=== PATIENT | female | born 1945 | race Caucasian/White ===

== ENCOUNTER → 2016-10-12 | Outpatient (CLI) | payer MEDICARE, MEDICAID ==
[~2016-10-12] MED LIST: ALBU0.63 NEB; ALPR1TAB3 PO; ALPR2TAB3 PO; ASPI1TAB69 PO; ASPI81CH CHEW; BUPR100T4 PO; LEVO.05 PO; NEBUKIT5; OXYGENTANK NAS.CANULA; ROSU40 PO; TIOT1AER INH; VENTAER INH; XANA1TAB2 PO
[2016-10-12 10:23] LABS: ALKALINE PHOSPHATASE 80 U/L (45-117); ALT (GPT) 24 U/L (10-53); ANION GAP 6 MEQ/L (5-15); AST (GOT) 16 U/L (15-37); BICARBONATE 33.3 MEQ/L (21.0-32.0); BLOOD UREA NITROGEN 10 MG/DL (7-18); CHLORIDE 103 MEQ/L (98-107); GLOMERULAR FILTRATION RATE 88 ML/MIN (>89); GLUCOSE,FASTING 106 MG/DL (74-99); HDL CHOLESTEROL 52.1 MG/DL (40.0-60.0); LDL CHOLESTEROL 24 MG/DL (0-99); POTASSIUM 4.4 MEQ/L (3.5-5.1); SODIUM (NA) 142 MEQ/L (136-145); TOTAL BILIRUBIN ADULT 0.4 MG/DL (0.2-1.0)
== END ==
LOC: CLAB 09:05
PROVIDERS: ATTEND Family Medicine
DX: J44.9 Chronic obstructive pulmonary disease, unspecified (principal); F32.9 Major depressive disorder, single episode, unspecified; E78.5 Hyperlipidemia, unspecified; I10 Essential (primary) hypertension; E03.8 Other specified hypothyroidism
CPT/HCPCS: 36415; 80053; 80061; 84443

== ENCOUNTER 2017-01-17 09:12 | Emergency (ER) | payer MEDICARE, MEDICAID ==
[~2017-01-17] VITALS: Ht 165.1 cm; Wt 75.0 kg
[~2017-01-17 09:12] MED LIST changes: -ALPR1TAB3 PO; -ALPR2TAB3 PO; -ASPI81CH CHEW
[2017-01-17 09:17] VITALS: BP 149/77; PULSE 84; RESP 16; TEMP 98.2; O2SAT 99
[2017-01-17 09:38] VITALS: BP 178/81; PULSE 65; O2SAT 96
--- NOTE | 2017-01-17 09:41 | PD ---
HPI Chief Complaint: Anxiety Time Seen by Provider: 09:28 Travel History International Travel<30 days: No Contact w/Intl Traveler<30days: No Traveled to known affect area: No History of Present Illness HPI This is a 71-year-old female who presents to the emergency department with anxiety it's been going on since yesterday, constant, moderate severity, ever since she ran out of her Xanax. She's been getting Xanax prescribed to her routinely by Dr. Payne on a month to month basis but Dr. Payne decided to work back in the hospital and she can't see him anymore. She is going to follow -up with her primary care physician regarding her anxiety. [facility] Past Medical History Arthritis: Yes Asthma: No Autoimmune Disease: No Blood Disorders: No Anxiety: Yes (DOES NOT SEEK PSYCHIATRIST PER CHOICE) Depression: Yes (DOES NOT SEEK PSYCHIATRIST PER CHOICE) Heart Rhythm Problems: Yes Cancer: No Cardiac Catheterization: No Cardiovascular Problems: Yes High Cholesterol: No Chemotherapy: No Chest Pain: Yes Congestive Heart Failure: No COPD: Yes (SMOKED X 50 YRS) Cerebrovascular Accident: Yes Diabetes: Yes (diet controlled) Patient Takes Glucophage: No Diminished Hearing: No Endocrine: Yes (HYPOTHYROID) Gastrointestinal Disorders: No GERD: No Glaucoma: Yes Genitourinary: No Headaches: No Hepatitis: No Hiatal Hernia: No Hypertension: No Immune Disorder: No Kidney Stones: No Musculoskeletal: Yes (ARTHRITIS) Neurologic: Yes (CVS X 10 YRS) Psychiatric: Yes Reproductive: No Respiratory: Yes (copd) Immunizations Current: No Migraines: No Myocardial Infarction: No Radiation Therapy: No Renal Failure: No Seizures: No Sickle Cell Disease: No Sleep Apnea: Yes (CPAP AT HOME) Thyroid Disease: Yes (HYPOTHYROID ) Ulcer: No Tetanus Vaccination: Unknown Influenza Vaccination: Yes ?: Not Menopausal: Yes Tubal Ligation: Yes Past Surgical History Abdominal Surgery: No AICD: No Appendectomy: Yes (as a child ) Arteriovenous Shunt: No Cardiac Surgery: No Cholecystectomy: Yes (UNSURE) Coronary Artery Bypass Graft: No Ear Surgery: No Endocrine Surgery: No Eye Surgery: No Genitourinary Surgery: No Gynecologic Surgery: Yes (2 ABORTIONS) Insulin Pump: No Joint Replacement: No Neurologic Surgery: No Oral Surgery: No Pacemaker: No Thoracic Surgery: No Tonsillectomy: Yes Other Surgery: Yes (COLONSCOPY) Social History Alcohol Use: No Tobacco Use: Yes (less than a pack a day ) Substance Use: No Allergies-Medications (Allergen,Severity, Reaction): Coded Allergies: No Known Allergies (Verified , 01/17/17) Reported Meds & Prescriptions Reported Meds & Active Scripts Active Stiolto Respimat Inh (Tiotropium-Olodaterol Inh) 2.5-2.5 Mcg/Act Aero 1 Puff INH DAILY Albuterol Neb (Albuterol Sulfate) 0.63 Mg/3 Ml Neb 0.63 Mg NEB Q6HR NEB PRN Ventolin Hfa 18 GM Inh (Albuterol Sulfate) 90 Mcg/Act Aer 1 Puff INH Q4H PRN Xanax (Alprazolam) 1 Mg Tab 0.5 Mg PO DIRECTED PRN Bupropion HCl 100 Mg Tab 100 Mg PO BID Crestor (Rosuvastatin Calcium) 40 Mg Tab 40 Mg PO DAILY Reported Oxygen tank (Oxygen) 1 Ea Tank 2 Liter STEPH.CANULA CONTINUOUS Oxygen Concentrator Portable Gaseous 2 L/min via Nasal Cannula Continuous For 99 months Aspirin 81 Mg Tabdr 81 Mg PO 2-3 TIMES A DAY Synthroid (Levothyroxine Sodium) 50 Mcg Tab 50 Mcg PO EVERY OTHER DAY Nebulizer Kit/Tubing/Mout (N/A) 1 Kit Kit 1 Kit .ROUTE DIRECTED Review of Systems Except as stated in HPI: all other systems reviewed are Neg Physical Exam Narrative GENERAL: Anxious with some tremor SKIN: Focused skin assessment warm and dry. HEAD: Atraumatic. Normocephalic. EYES: Pupils equal and round. No injection or drainage. ENT: Moist mucous membranes NECK: Trachea midline. CARDIOVASCULAR: Regular rate and rhythm. No murmur appreciated. RESPIRATORY: Clear to auscultation. Breath sounds equal bilaterally. GASTROINTESTINAL: Abdomen soft, non-tender, nondistended. MUSCULOSKELETAL: No obvious deformities. NEUROLOGICAL: Awake and alert. No obvious cranial nerve deficits. Moving all extremities. PSYCHIATRIC: Appropriate mood and affect; insight and judgment normal. Data Data Last Documented VS Vital Signs Date Time Temp Pulse Resp B/P Pulse Ox O2 Delivery O2 Flow Rate FiO2 01/17/17 09:38 65 178/81 96 Nasal Cannula 2 01/17/17 09:17 98.2 16 Orders Electrocardiogram (01/17/17 ) Lorazepam Inj (Ativan Inj) (01/17/17 09:45) MDM Medical Decision Making Medical Screen Exam Complete: Yes Emergency Medical Condition: Yes Interpretation(s) EKG with anterior T-wave inversions seen on prior EKGs from [facility] Differential Diagnosis Anxiety, benzodiazepine withdrawal, panic attack, myocardial infarction Narrative Course This is a 71-year-old female who presents to the emergency department anxious and having run out of her Xanax yesterday. Patient appears to be an early benzodiazepine withdrawal. She has been reliable with her benzodiazepine prescriptions in the past. I did inform her that we can't routinely refill her controlled substances in the emergency department but in this situation I think it's reasonable until she can get into her primary care physician. She was given 1 mg of IM Ativan here in the emergency department and will be discharged on a short course of Xanax. An EKG was obtained on arrival which does demonstrate T-wave inversions in the anterior leads which have been seen at [facility] in the past. Diagnosis Primary Impression: Withdrawal from benzodiazepine Qualified Code: F13.230 - Withdrawal from benzodiazepine, uncomplicated Patient Instructions: General Instructions Additional Instructions: Follow up with Shayla Flores in regards to psychiatric or substance related issues at: [address] [place], [place] [id number] Med/Other Pt SpecificInfo: Prescription(s) given Scripts Alprazolam 2 Mg Tab2 Mg PO Q8H PRN (ANXIETY) #30 TAB Prov:Laura Farley MD 01/17/17 Disposition: 01 DISCHARGE HOME Condition: Stable Laura Farely MD January 17, 2017 09:41
[2017-01-17] MEDS ORDERED: LORazepam 2 MG/ML VIAL IV PUSH ONE (09:45)
[2017-01-17] MEDS ORDERED: ALPR2TAB3 PO (09:49)
[2017-01-17] MEDS ORDERED: ASPI81CH CHEW (09:54)
--- NOTE | 2017-01-17 14:59 | EKG ---
Date Performed: 01/17/2017 Time Performed: 09:33:44 PTAGE: 71 years EKG: Sinus rhythm Nonspecific T wave changes ABNORMAL ECG COMPARED TO PRIOR ELECTROCARDIOGRAM, T wave changes are more prominent. PREVIOUS TRACING : 06/17/2015 11.19 DOCTOR: Bandar Barrientos Interpretating Date/Time 01/17/2017 14:59:10
[2017-02-08] MEDS ORDERED: ALPR1TAB3 PO (12:28)
== END 2017-01-17 10:26 | disposition home or self-care (01) ==
LOC: NEPC 09:12
DX: F13.230 Sedative, hypnotic or anxiolytic dependence with withdrawal, uncomplicated (principal); E03.9 Hypothyroidism, unspecified; J44.9 Chronic obstructive pulmonary disease, unspecified; F41.9 Anxiety disorder, unspecified; F17.200 Nicotine dependence, unspecified, uncomplicated; Z79.899 Other long term (current) drug therapy
CPT/HCPCS: 93005; 96374; 99284; J2060

== ENCOUNTER → 2017-03-11 | Outpatient (CLI) | payer MEDICARE, MEDICAID ==
[~2017-03-11] MED LIST changes: +ALPR1TAB3 PO; -ASPI1TAB69 PO; +ASPI81CH CHEW; -BUPR100T4 PO; -VENTAER INH; -XANA1TAB2 PO
--- NOTE | 2017-03-16 08:31 | RSPPFT ---
DATE OF PROCEDURE: 03/11/17 COMMENTS: VOLUMES DYNAMIC: FVC mildly reduced; FEV1 moderately reduced. STATIC: FRC mildly increased; RV moderately increased; TLC normal. FLOWS: FEV1% moderately reduced; FEF 25-75 severely reduced. DIFFUSION: Severely reduced. FLOW VOLUME LOOP: Pattern of variable intrathoracic airways obstruction. IMPRESSION: Severe obstructive ventilatory defect with reduction in diffusion and moderate hyperinflation. Airways resistance is increased. There is minimal improvement post-bronchodilator.
== END ==
LOC: HRSP 12:06
PROVIDERS: ATTEND Internal Medicine
DX: J44.9 Chronic obstructive pulmonary disease, unspecified (principal)
CPT/HCPCS: 94060; 94620; 94726; 94729

== ENCOUNTER 2017-08-18 09:59 | Emergency (ER) | payer MEDICARE, MEDICAID ==
[~2017-08-18] VITALS: Ht 165.1 cm; Wt 77.0 kg
[~2017-08-18 09:59] MED LIST changes: +ALPR0.5T3 PO; -ALPR1TAB3 PO; +ASPI-516 CHEW; -ASPI81CH CHEW; +ESCI10TA PO; +NEBU1EAC; +NEBUMIS9; +SALM50I INH; +TIOT12.9 INH; -TIOT1AER INH
[2017-08-18 10:01] VITALS: BP 171/75; PULSE 76; RESP 22; TEMP 99.4; O2SAT 96
--- NOTE | 2017-08-18 10:40 | PD ---
HPI Chief Complaint: Depression Time Seen by Provider: 10:26 Travel History International Travel<30 days: No Contact w/Intl Traveler<30days: No Traveled to known affect area: No History of Present Illness HPI This patient complains of depression and anxiety. He's been on Xanax for years and has run out. She is feeling shaky and jittery. She denies suicidal ideation. She does describe activities that suggest pamella. She can't stop cleaning. She can't sit still. She denies bipolar. She would like psychiatric evaluation. Severity of symptoms is moderate. Duration of this flare is 2-3 days. Symptoms exacerbated by possible medication withdrawal. No alleviating factors. PFSH Past Medical History Arthritis: Yes Asthma: No Autoimmune Disease: No Blood Disorders: No Anxiety: Yes ( ) Depression: Yes (DOES NOT SEEK PSYCHIATRIST PER CHOICE) Heart Rhythm Problems: Yes Cancer: No Cardiac Catheterization: No Cardiovascular Problems: Yes High Cholesterol: No Chemotherapy: No Chest Pain: Yes Congestive Heart Failure: No COPD: Yes ( ) Cerebrovascular Accident: Yes Diabetes: Yes (diet controlled) Patient Takes Glucophage: No Diminished Hearing: No Endocrine: Yes (HYPOTHYROID) Gastrointestinal Disorders: No GERD: No Glaucoma: Yes Genitourinary: No Headaches: No Hepatitis: No Hiatal Hernia: No Hypertension: No Immune Disorder: No Kidney Stones: No Musculoskeletal: Yes (ARTHRITIS) Neurologic: Yes (CVS X 10 YRS) Psychiatric: Yes Reproductive: No Respiratory: Yes (copd) Immunizations Current: No Migraines: No Myocardial Infarction: No Radiation Therapy: No Renal Failure: No Seizures: No Sickle Cell Disease: No Sleep Apnea: Yes (CPAP AT HOME) Thyroid Disease: Yes (HYPOTHYROID ) Ulcer: No ?: Not Menopausal: Yes Tubal Ligation: Yes Past Surgical History Abdominal Surgery: No AICD: No Appendectomy: Yes (as a child ) Arteriovenous Shunt: No Cardiac Surgery: No Cholecystectomy: Yes ( ) Coronary Artery Bypass Graft: No Ear Surgery: No Endocrine Surgery: No Eye Surgery: No Genitourinary Surgery: No Gynecologic Surgery: Yes ( ) Insulin Pump: No Joint Replacement: No Neurologic Surgery: No Oral Surgery: No Pacemaker: No Thoracic Surgery: No Tonsillectomy: Yes Social History Alcohol Use: No Tobacco Use: Yes (less than a pack a day ) Substance Use: No Allergies-Medications (Allergen,Severity, Reaction): Coded Allergies: No Known Allergies (Verified Adverse Reaction, Unknown, 08/18/17) Reported Meds & Prescriptions Reported Meds & Active Scripts Active Albuterol Neb (Albuterol Sulfate) 0.63 Mg/3 Ml Neb 0.63 Mg NEB Q6HR NEB PRN Alprazolam 0.5 Mg Tab 0.5 Mg PO Q6H PRN 30 Days Please do not fill until 05/30/2017 Serevent Diskus Inh (Salmeterol Xinafoate) 50 Mcg/Act Aero 50 Mcg INH BID Crestor (Rosuvastatin Calcium) 40 Mg Tab 40 Mg PO DAILY Synthroid (Levothyroxine Sodium) 50 Mcg Tab 50 Mcg PO EVERY OTHER DAY Escitalopram (Escitalopram Oxalate) 10 Mg Tab 10 Mg PO DAILY Adult Aerosol Mask (Nebulizer Accessories) 1 Each Each Unit Reported Aspirin 81 Mg Chew 162 Mg CHEW DAILY Oxygen tank (Oxygen) 1 Ea Tank 2 Liter STEPH.CANMicroTransponder CONTINUOUS Oxygen Concentrator Portable Gaseous 2 L/min via Nasal Cannula Continuous For 99 months Nebulizer Kit/Tubing/Mout (N/A) 1 Kit Kit 1 Kit .ROUTE DIRECTED Review of Systems General / Constitutional: No: Fever Eyes: No: Visual changes HENT: No: Headaches Cardiovascular: No: Chest Pain or Discomfort Respiratory: No: Shortness of Breath Gastrointestinal: No: Abdominal Pain Genitourinary: No: Dysuria Musculoskeletal: No: Pain Skin: No Rash Neurologic: No: Weakness Psychiatric: Positive: Anxiety, Depression Endocrine: No: Polydipsia Hematologic/Lymphatic: No: Easy Bruising Physical Exam Narrative GENERAL: Well-nourished, well-developed patient who is anxious and shaky. SKIN: Focused skin assessment reveals no rash and nodules. Skin is Warm and dry. HEAD: Atraumatic. Normocephalic. EYES: Pupils equal and round. No scleral icterus. No injection or drainage. ENT: No nasal bleeding or discharge. Mucous membranes pink and moist. NECK: Trachea midline. No JVD. CARDIOVASCULAR: Regular rate and rhythm. No murmur appreciated. RESPIRATORY: No accessory muscle use. Clear to auscultation. Breath sounds equal bilaterally. GASTROINTESTINAL: Abdomen soft, non-tender, nondistended. Hepatic and splenic margins not palpable. MUSCULOSKELETAL: No obvious deformities. No clubbing. No cyanosis. No edema. NEUROLOGICAL: Awake and alert. No obvious cranial nerve deficits. Motor grossly within normal limits. Normal speech. PSYCHIATRIC: Anxious mood and affect; insight and judgment reduced . Data Data Last Documented VS Vital Signs Date Time Temp Pulse Resp B/P (MAP) Pulse Ox O2 Delivery O2 Flow Rate FiO2 08/18/17 10:01 99.4 76 22 171/75 (107) 96 Room Air Orders Orders Iv Access Insert/Monitor (08/18/17 10:33) Complete Blood Count With Diff (08/18/17 10:33) Basic Metabolic Panel (Bmp) (08/18/17 10:33) Thyroid Stimulating Hormone (08/18/17 10:33) Drug Screen, Random Urine (08/18/17 10:33) Psych Screen (08/18/17 10:33) Lorazepam (Ativan) (08/18/17 10:45) Alcohol (Ethanol) (08/18/17 10:40) Labs Laboratory Tests Test 08/18/17 10:40 08/18/17 11:15 White Blood Count 9.2 TH/MM3 Red Blood Count 4.89 MIL/MM3 Hemoglobin 15.3 GM/DL Hematocrit 43.1 % Mean Corpuscular Volume 88.2 FL Mean Corpuscular Hemoglobin 31.3 PG Mean Corpuscular Hemoglobin Concent 35.4 % Red Cell Distribution Width 12.8 % Platelet Count 181 TH/MM3 Mean Platelet Volume 7.4 FL Neutrophils (%) (Auto) 77.4 % Lymphocytes (%) (Auto) 15.5 % Monocytes (%) (Auto) 5.9 % Eosinophils (%) (Auto) 0.8 % Basophils (%) (Auto) 0.4 % Neutrophils # (Auto) 7.1 TH/MM3 Lymphocytes # (Auto) 1.4 TH/MM3 Monocytes # (Auto) 0.5 TH/MM3 Eosinophils # (Auto) 0.1 TH/MM3 Basophils # (Auto) 0.0 TH/MM3 CBC Comment DIFF FINAL Differential Comment Blood Urea Nitrogen 12 MG/DL Creatinine 0.58 MG/DL Random Glucose 118 MG/DL Calcium Level 9.8 MG/DL Sodium Level 138 MEQ/L Potassium Level 4.6 MEQ/L Chloride Level 103 MEQ/L Carbon Dioxide Level 30.8 MEQ/L Anion Gap 4 MEQ/L Estimat Glomerular Filtration Rate 102 ML/MIN Thyroid Stimulating Hormone 3rd Gen 0.694 uIU/ML Ethyl Alcohol Level LESS THAN 3 MG/DL Urine Opiates Screen NEG Urine Barbiturates Screen NEG Urine Amphetamines Screen NEG Urine Benzodiazepines Screen POS Urine Cocaine Screen NEG Urine Cannabinoids Screen NEG MDM Medical Decision Making Medical Screen Exam Complete: Yes Emergency Medical Condition: Yes Medical Record Reviewed: Yes Differential Diagnosis Anxiety, depression, bipolar, withdrawal Narrative Course I have reviewed the patient's electronic medical record. Ordered psychiatric screening for this patient. She desires that. I've ordered medical clearance workup. I gave her dose of Ativan CBC is normal Metabolic profile is normal TSH is normal Tox screen is positive for her prescribed benzos Alcohol is negative She is much calmer after her Ativan dose Wing Medrano MD Aug 18, 2017 10:40
[2017-08-18] MEDS ORDERED: LORazepam 1 MG TAB PO ONE (10:45)
[2017-08-18 10:49] LABS: AUTOMATED NEUTROPHIL # 7.1 TH/MM3 (1.8-7.7); BASOPHIL % 0.4 % (0.0-2.0); EOSINOPHIL # 0.1 TH/MM3 (0-0.4); EOSINOPHIL % 0.8 % (0.0-4.0); HEMATOCRIT 43.1 % (35.0-46.0); HEMOGLOBIN 15.3 GM/DL (11.6-15.3); LYMPH % 15.5 % (9.0-44.0); LYMPHOCYTE # 1.4 TH/MM3 (1.0-4.8); MEAN CELL VOLUME 88.2 FL (80.0-100.0); MEAN CORPUSCULAR HEMOGLOBIN 31.3 PG (27.0-34.0); MEAN CORPUSCULAR HGB CONC 35.4 % (32.0-36.0); MEAN PLATELET VOLUME 7.4 FL (7.0-11.0); MONO % 5.9 % (0.0-8.0); MONOCYTE # 0.5 TH/MM3 (0-0.9); NEUT % 77.4 % (16.0-70.0); PLATELET COUNT 181 TH/MM3 (150-450); RED BLOOD COUNT 4.89 MIL/MM3 (4.00-5.30); RED CELL DISTRIBUTION WIDTH 12.8 % (11.6-17.2); WHITE BLOOD COUNT 9.2 TH/MM3 (4.0-11.0)
[2017-08-18 11:06] LABS: BICARBONATE 30.8 MEQ/L (21.0-32.0); CALCIUM 9.8 MG/DL (8.5-10.1); CREATININE 0.58 MG/DL (0.50-1.00)
[2017-08-18] MEDS ORDERED: ALPR0.5T3 PO (12:33)
[2017-08-18] MEDS ORDERED: ALPR.25 PO (13:27)
== END 2017-08-18 15:08 | disposition home or self-care (01) ==
LOC: NEPD 09:59
DX: F13.239 Sedative, hypnotic or anxiolytic dependence with withdrawal, unspecified (principal); T42.4X5A Adverse effect of benzodiazepines, initial encounter; F41.9 Anxiety disorder, unspecified; F32.9 Major depressive disorder, single episode, unspecified; E03.9 Hypothyroidism, unspecified; J44.9 Chronic obstructive pulmonary disease, unspecified; Z72.0 Tobacco use; Z79.899 Other long term (current) drug therapy
CPT/HCPCS: 80048; 80307; 84443; 85025; 99283

== ENCOUNTER 2017-09-23 16:10 | Emergency (ER) | payer MEDICARE, MEDICAID ==
[~2017-09-23] VITALS: Ht 165.1 cm; Wt 75.0 kg
[~2017-09-23 16:10] MED LIST changes: +ALPR.25 PO; -NEBUMIS9; -TIOT12.9 INH; +TIOT1AER INH
[2017-09-23 17:22] VITALS: BP 115/59; PULSE 73; RESP 20; TEMP 98.6; O2SAT 94
[2017-09-23] MEDS: RESP: ALBUTEROL 2.5 MG/IPRATROPIUM 0.5 MG NEB (SCH) INH ×2 (17:38→17:39)
[2017-09-23 17:41] VITALS: O2SAT 94
--- NOTE | 2017-09-23 17:41 | PD ---
HPI Chief Complaint: Respiratory Distress Time Seen by Provider: 17:15 Travel History International Travel<30 days: No Contact w/Intl Traveler<30days: No Traveled to known affect area: No History of Present Illness HPI 72-year-old female with a history of oxygen dependent COPD and anxiety presents emergency department complaining of cough, shortness of breath, fatigue, occasional headache, occasional subjective fever, polyuria for 3-4 days. States today she developed nausea without vomiting. Patient states that she has a "irregular heartbeat" but does not know if she has atrial fibrillation. States she takes a baby aspirin daily. Her mechanical engineering intern is Dr. Ontiveros. Patient lives at home alone. She denies history of congestive heart failure, SD , heart problems. PFSH Past Medical History Arthritis: Yes Asthma: No Autoimmune Disease: No Blood Disorders: No Anxiety: Yes ( ) Depression: Yes (DOES NOT SEEK PSYCHIATRIST PER CHOICE) Heart Rhythm Problems: Yes Cancer: No Cardiac Catheterization: No Cardiovascular Problems: Yes High Cholesterol: No Chemotherapy: No Chest Pain: Yes Congestive Heart Failure: No COPD: Yes ( ) Cerebrovascular Accident: Yes Diabetes: Yes (diet controlled) Diminished Hearing: No Endocrine: Yes (HYPOTHYROID) Gastrointestinal Disorders: No GERD: No Glaucoma: Yes Genitourinary: No Headaches: No Hepatitis: No Hiatal Hernia: No Hypertension: No Immune Disorder: No Kidney Stones: No Musculoskeletal: Yes (ARTHRITIS) Neurologic: Yes (CVS X 10 YRS) Psychiatric: Yes Reproductive: No Respiratory: Yes Immunizations Current: No Migraines: No Myocardial Infarction: No Radiation Therapy: No Renal Failure: No Seizures: No Sickle Cell Disease: No Sleep Apnea: Yes (CPAP AT HOME) Thyroid Disease: Yes (HYPOTHYROID ) Ulcer: No Menopausal: Yes Tubal Ligation: Yes Past Surgical History Abdominal Surgery: No AICD: No Appendectomy: Yes (as a child ) Arteriovenous Shunt: No Cardiac Surgery: No Cholecystectomy: Yes ( ) Coronary Artery Bypass Graft: No Ear Surgery: No Endocrine Surgery: No Eye Surgery: No Genitourinary Surgery: No Gynecologic Surgery: Yes ( ) Insulin Pump: No Joint Replacement: No Neurologic Surgery: No Oral Surgery: No Pacemaker: No Thoracic Surgery: No Tonsillectomy: Yes Social History Alcohol Use: No Tobacco Use: Yes (less than a pack a day ) Substance Use: No Allergies-Medications (Allergen,Severity, Reaction): Coded Allergies: No Known Allergies (Verified Adverse Reaction, Unknown, 09/23/17) Reported Meds & Prescriptions Reported Meds & Active Scripts Active Prednisone 10 Mg Tab 10 Mg PO DAILY 7 Days Ipratropium Neb (Ipratropium [place]) 0.5 Mg/2.5 Ml Amp 0.5 Mg NEB Q6HR NEB PRN Add to albuterol in your nebulizer. Alprazolam 0.5 Mg Tab 0.5 Mg PO Q6H PRN 30 Days Stiolto Respimat Inh (Tiotropium-Olodaterol Inh) 2.5-2.5 Mcg/Act Aero 2 Puff INH DAILY Xanax (Alprazolam) 0.25 Mg Tab 0.25 Mg PO Q6H PRN Albuterol Neb (Albuterol Sulfate) 0.63 Mg/3 Ml Neb 0.63 Mg NEB Q6HR NEB PRN Crestor (Rosuvastatin Calcium) 40 Mg Tab 40 Mg PO DAILY Synthroid (Levothyroxine Sodium) 50 Mcg Tab 50 Mcg PO EVERY OTHER DAY Adult Aerosol Mask (Nebulizer Accessories) 1 Each Each Unit Reported Aspirin 81 Mg Chew 162 Mg CHEW DAILY Oxygen tank (Oxygen) 1 Ea Tank 2 Liter STEPH.CANCloudian CONTINUOUS Oxygen Concentrator Portable Gaseous 2 L/min via Nasal Cannula Continuous For 99 months Nebulizer Kit/Tubing/Mout (N/A) 1 Kit Kit 1 Kit .ROUTE DIRECTED Review of Systems Except as stated in HPI: all other systems reviewed are Neg Physical Exam Narrative GENERAL: Well-developed well-nourished in no apparent distress, nasal cannula in place SKIN: Focused skin assessment warm/dry. HEAD: Atraumatic. Normocephalic. EYES: Pupils equal and round. No scleral icterus. No injection or drainage. ENT: No nasal bleeding or discharge. Mucous membranes pink and moist. NECK: Trachea midline. No JVD. CARDIOVASCULAR: Regular rate and rhythm. No murmur appreciated. RESPIRATORY: No accessory muscle use. Diminished breath sounds diffusely, rhonchi lower lobes GASTROINTESTINAL: Abdomen soft, non-tender, nondistended. No CVA tenderness MUSCULOSKELETAL: No obvious deformities. No clubbing. No cyanosis. No edema. NEUROLOGICAL: Awake and alert. No obvious cranial nerve deficits. Motor grossly within normal limits. Normal speech. PSYCHIATRIC: Appropriate mood and affect; insight and judgment normal. Data Data Last Documented VS Vital Signs Date Time Temp Pulse Resp B/P (MAP) Pulse Ox O2 Delivery O2 Flow Rate FiO2 09/23/17 21:43 16 115/77 (90) 94 09/23/17 20:00 80 Nasal Cannula 2.00 09/23/17 17:22 98.6 Orders Orders Complete Blood Count With Diff (09/23/17 17:25) Comprehensive Metabolic Panel (09/23/17 17:25) Act Partial Throm Time (Ptt) (09/23/17 17:25) Prothrombin Time / Inr (Pt) (09/23/17 17:25) Magnesium (Mg) (09/23/17 17:25) Troponin I (09/23/17 17:25) Urinalysis - C+S If Indicated (09/23/17 17:25) Iv Access Insert/Monitor (09/23/17 17:25) Electrocardiogram (09/23/17 17:25) Ecg Monitoring (09/23/17 17:25) Oximetry (09/23/17 17:25) Oxygen Administration (09/23/17 17:25) Chest, Single Ap (09/23/17 17:25) Albuterol-Ipratropium Neb (Duoneb Neb) (09/23/17 17:30) Influenzae A/B Antigen (09/23/17 17:25) Methylprednisolone So Succ Inj (Solumedr (09/23/17 17:45) Ed Discharge Order (09/23/17 21:35) Labs Laboratory Tests Test 09/23/17 18:00 09/23/17 20:50 White Blood Count 5.6 TH/MM3 Red Blood Count 4.76 MIL/MM3 Hemoglobin 15.0 GM/DL Hematocrit 42.2 % Mean Corpuscular Volume 88.7 FL Mean Corpuscular Hemoglobin 31.5 PG Mean Corpuscular Hemoglobin Concent 35.5 % Red Cell Distribution Width 12.9 % Platelet Count 162 TH/MM3 Mean Platelet Volume 8.3 FL Neutrophils (%) (Auto) 74.0 % Lymphocytes (%) (Auto) 15.4 % Monocytes (%) (Auto) 8.8 % Eosinophils (%) (Auto) 1.1 % Basophils (%) (Auto) 0.7 % Neutrophils # (Auto) 4.2 TH/MM3 Lymphocytes # (Auto) 0.9 TH/MM3 Monocytes # (Auto) 0.5 TH/MM3 Eosinophils # (Auto) 0.1 TH/MM3 Basophils # (Auto) 0.0 TH/MM3 CBC Comment DIFF FINAL Differential Comment Prothrombin Time 11.2 SEC Prothromb Time International Ratio 1.1 RATIO Activated Partial Thromboplast Time 25.2 SEC Blood Urea Nitrogen 13 MG/DL Creatinine 0.59 MG/DL Random Glucose 97 MG/DL Total Protein 7.4 GM/DL Albumin 3.9 GM/DL Calcium Level 9.8 MG/DL Magnesium Level 2.0 MG/DL Alkaline Phosphatase 64 U/L Aspartate Amino Transf (AST/SGOT) 20 U/L Alanine Aminotransferase (ALT/SGPT) 20 U/L Total Bilirubin 0.6 MG/DL Sodium Level 139 MEQ/L Potassium Level 3.9 MEQ/L Chloride Level 100 MEQ/L Carbon Dioxide Level 34.2 MEQ/L Anion Gap 5 MEQ/L Estimat Glomerular Filtration Rate 100 ML/MIN Troponin I LESS THAN 0.02 NG/ML Urine Color YELLOW Urine Turbidity HAZY Urine pH 6.0 Urine Specific [place] 1.016 Urine Protein 30 mg/dL Urine Glucose (UA) NEG mg/dL Urine Ketones 10 mg/dL Urine Occult Blood MOD Urine Nitrite NEG Urine Bilirubin NEG Urine Urobilinogen LESS THAN 2.0 MG/DL Urine Leukocyte Esterase NEG Urine RBC 88 /hpf Urine WBC 3 /hpf Urine Mucus FEW /lpf Microscopic Urinalysis Comment CULT NOT INDICATED MDM Medical Decision Making Medical Screen Exam Complete: Yes Emergency Medical Condition: Yes Differential Diagnosis COPD exacerbation, upper respiratory infection, anxiety, pneumonia, pleural effusions Narrative Course 72-year-old female with a history of oxygen dependent COPD presents emergency department complaining of cough, shortness of breath, fatigue, occasional headache, occasional subjective fever, polyuria for 3-4 days. States today she developed nausea without vomiting. Patient states that she has a "irregular heartbeat" but does not know if she has atrial fibrillation. States she takes a baby aspirin daily. Her mechanical engineering intern is Dr. Ontiveros. Patient lives at home alone. She denies history of congestive heart failure, SD, heart problems. Vital signs-afebrile, blood pressure stable, SaO2 94% on 2 L O2 Labs, influenza, UA ordered. Patient received DuoNeb 3, methylprednisolone 125 mg. Second evaluation of patient shows her resting well in bed, asleep and in no acute distress. SaO2 remained 94% with 2LPM O2. Chest x-ray Last Impressions Chest X-Ray 09/23/17 [id number] Signed Impressions: Service Date/Time: September 17:40 - CONCLUSION: Stable bibasilar streakiness consistent with atelectasis and/or scarring. Allen Linares MD Pt says she feels much better and rested after the duonebs today. I will add ipratropium to her regimen as she have albuterol nebs and may need additional medication to control her symptoms. I instructed her to use this medication along with her albuterol. Says she understands and will comply. She will also be discharged home with prednisone and strongly advised to follow up with her denial resolution specialist and PCP THIS WEEK. Return to the ED for worsening or persistent symptoms. Diagnosis Primary Impression: COPD exacerbation Admitting Information Admitting Physician Requests: Observation Referrals: Primary Care Physician Additional Instructions: Take all medications as prescribed. Return to your Primary care physician this week. If your symptoms persister or worsen, return to the emergency department. Scripts Prednisone (Prednisone) 10 Mg Tab 10 MG PO DAILY for 7 Days, #7 TAB 0 Refills Prov: Elo Madrid 09/23/17 Ipratropium Neb (Ipratropium Neb) 0.5 Mg/2.5 Ml Amp 0.5 MG NEB Q6HR NEB Y for SHORTNESS OF BREATH, #120 NEBULE 0 Refills Add to albuterol in your nebulizer. Prov: Elo Madrid 09/23/17 Disposition: 01 DISCHARGE HOME Condition: Stable Elo Madrid Sep 23, 2017 17:41
[2017-09-23] MEDS ORDERED: methylPREDNISolone SOD SUCC 125 MG/2 ML VIAL IV PUSH ONE (17:45)
--- NOTE | 2017-09-23 18:03 | RADRPT ---
EXAM DATE/TIME: 09/23/2017 17:40 [facility] COMPARISON: CHEST SINGLE AP, June 02, 2016, 0:02. INDICATIONS : Shortness of breath. MEDICAL HISTORY : Chronic obstructive pulmonary disease. Emphysema. CVA. Diabetes. Liver disease. SURGICAL HISTORY : None. ENCOUNTER: Initial ACUITY: 1 day PAIN SCORE: 0/10 LOCATION: Bilateral chest FINDINGS: The heart is stable. Bibasilar streakiness is again noted and stable. No acute infiltrate is noted. CONCLUSION: Stable bibasilar streakiness consistent with atelectasis and/or scarring. Allen Linares MD on September 23, 2017 at 17:59 Board Certified Radiologist. This report was verified electronically.
[2017-09-23 18:36] LABS: AUTOMATED NEUTROPHIL # 4.2 TH/MM3 (1.8-7.7); BASOPHIL % 0.7 % (0.0-2.0); EOSINOPHIL # 0.1 TH/MM3 (0-0.4); EOSINOPHIL % 1.1 % (0.0-4.0); HEMATOCRIT 42.2 % (35.0-46.0); LYMPH % 15.4 % (9.0-44.0); LYMPHOCYTE # 0.9 TH/MM3 (1.0-4.8); MEAN CELL VOLUME 88.7 FL (80.0-100.0); MEAN CORPUSCULAR HEMOGLOBIN 31.5 PG (27.0-34.0); MEAN CORPUSCULAR HGB CONC 35.5 % (32.0-36.0); MEAN PLATELET VOLUME 8.3 FL (7.0-11.0); MONO % 8.8 % (0.0-8.0); MONOCYTE # 0.5 TH/MM3 (0-0.9); PLATELET COUNT 162 TH/MM3 (150-450); RED BLOOD COUNT 4.76 MIL/MM3 (4.00-5.30); RED CELL DISTRIBUTION WIDTH 12.9 % (11.6-17.2); WHITE BLOOD COUNT 5.6 TH/MM3 (4.0-11.0)
[2017-09-23 18:44] LABS: INTERNATIONAL NORMALIZED RATIO 1.1 RATIO; PROTHROMBIN TIME - PATIENT 11.2 SEC (9.8-11.6)
[2017-09-23 18:52] LABS: ALBUMIN 3.9 GM/DL (3.4-5.0); AST (GOT) 20 U/L (15-37); BICARBONATE 34.2 MEQ/L (21.0-32.0); BLOOD UREA NITROGEN 13 MG/DL (7-18); CALCIUM 9.8 MG/DL (8.5-10.1); CHLORIDE 100 MEQ/L (98-107); CREATININE 0.59 MG/DL (0.50-1.00); GLOMERULAR FILTRATION RATE 100 ML/MIN (>89); GLUCOSE,RANDOM 97 MG/DL (74-106); SODIUM (NA) 139 MEQ/L (136-145)
[2017-09-23 18:58] LABS: ALKALINE PHOSPHATASE 64 U/L (45-117); ALT (GPT) 20 U/L (10-53); TOTAL BILIRUBIN ADULT 0.6 MG/DL (0.2-1.0); TOTAL PROTEIN 7.4 GM/DL (6.4-8.2); TROPONIN I LESS THAN 0.02 NG/ML (0.02-0.05)
[2017-09-23 20:00] VITALS: BP 107/53; PULSE 80; RESP 20; O2SAT 94
[2017-09-23 21:23] LABS: BILIRUBIN, URINE NEG (NEG); BLOOD, URINE MOD (NEG); GLUCOSE,URINE NEG (NEG); KETONE, URINE 10 mg/dL (NEG); MUCUS URINE FEW /lpf (OCC); NITRITE,URINE NEG (NEG); URINE COLOR YELLOW (YELLW/STRAW); URINE LEUKOCYTE ESTERASE NEG (NEG)
[2017-09-23] MEDS ORDERED: IPRA0.02 NEB (21:33)
[2017-09-23] MEDS ORDERED: PRED10 PO (21:33)
[2017-09-23 21:43] VITALS: BP 115/77
--- NOTE | 2017-09-24 19:52 | EKG ---
Date Performed: 09/23/2017 Time Performed: 18:23:38 PTAGE: 72 years EKG: Sinus rhythm POSSIBLE RIGHT VENTRICULAR CONDUCTION DELAY NONSPECIFIC T-WAVE ABNORMALITY BORDERLINE ECG Since the prior tracing, there has been no significant change NO PREVIOUS TRACING DOCTOR: Kevin Walsh Interpretating Date/Time 09/24/2017 19:50:40
[2017-09-29] MEDS ORDERED: IPRA0.02 NEB (12:51)
== END 2017-09-23 21:45 | disposition home or self-care (01) ==
LOC: NEPC 16:10
DX: J44.1 Chronic obstructive pulmonary disease with (acute) exacerbation (principal); R94.31 Abnormal electrocardiogram [ECG] [EKG]; E11.9 Type 2 diabetes mellitus without complications; E03.9 Hypothyroidism, unspecified; M19.90 Unspecified osteoarthritis, unspecified site; F41.9 Anxiety disorder, unspecified; H40.9 Unspecified glaucoma; Z99.81 Dependence on supplemental oxygen; Z86.73 Personal history of transient ischemic attack (TIA), and cerebral infarction without residual deficits
CPT/HCPCS: 71045; 80053; 81001; 83735; 84484; 85025; 85610; 85730; 87804; 93005; 94640; 94664; 96374; 99285; J2930

== ENCOUNTER → 2017-10-15 | Outpatient (CLI) | payer MEDICARE, MEDICAID ==
[~2017-10-15] MED LIST changes: -ESCI10TA PO; +IPRA0.02 NEB; +PRED10 PO; -SALM50I INH
[2017-10-15 09:05] LABS: AUTOMATED NEUTROPHIL # 2.5 TH/MM3 (1.8-7.7); BASOPHIL # 0.1 TH/MM3 (0-0.2); BASOPHIL % 1.2 % (0.0-2.0); EOSINOPHIL # 0.2 TH/MM3 (0-0.4); HEMATOCRIT 44.2 % (35.0-46.0); HEMOGLOBIN 15.6 GM/DL (11.6-15.3); LYMPH % 36.6 % (9.0-44.0); LYMPHOCYTE # 1.9 TH/MM3 (1.0-4.8); MEAN CELL VOLUME 88.5 FL (80.0-100.0); MEAN CORPUSCULAR HEMOGLOBIN 31.3 PG (27.0-34.0); MEAN CORPUSCULAR HGB CONC 35.3 % (32.0-36.0); MEAN PLATELET VOLUME 7.4 FL (7.0-11.0); MONO % 9.1 % (0.0-8.0); MONOCYTE # 0.5 TH/MM3 (0-0.9); NEUT % 49.1 % (16.0-70.0); PLATELET COUNT 184 TH/MM3 (150-450); RED BLOOD COUNT 4.99 MIL/MM3 (4.00-5.30); WHITE BLOOD COUNT 5.2 TH/MM3 (4.0-11.0)
[2017-10-15 09:34] LABS: ALKALINE PHOSPHATASE 71 U/L (45-117); HDL CHOLESTEROL 42.6 MG/DL (40.0-60.0); TOTAL BILIRUBIN ADULT 0.7 MG/DL (0.2-1.0); TOTAL PROTEIN 7.7 GM/DL (6.4-8.2); TRIGLYCERIDES 126 MG/DL (42-150)
[2017-10-15 09:36] LABS: ALBUMIN 4.3 GM/DL (3.4-5.0); ALT (GPT) 24 U/L (10-53); AST (GOT) 25 U/L (15-37); BICARBONATE 33.1 MEQ/L (21.0-32.0); BLOOD UREA NITROGEN 14 MG/DL (7-18); CALCIUM 9.7 MG/DL (8.5-10.1); CHLORIDE 103 MEQ/L (98-107); CHOLESTEROL 96 MG/DL (120-200); CHOLESTEROL/ HDL RATIO 2.25 RATIO; CREATININE 0.66 MG/DL (0.50-1.00); GLOMERULAR FILTRATION RATE 88 ML/MIN (>89); GLUCOSE,FASTING 94 MG/DL (74-99); LDL CHOLESTEROL 28 MG/DL (0-99); SODIUM (NA) 140 MEQ/L (136-145)
== END ==
LOC: CLAB 08:37
PROVIDERS: ATTEND Family Medicine
DX: E03.9 Hypothyroidism, unspecified (principal); I10 Essential (primary) hypertension; E78.5 Hyperlipidemia, unspecified; J44.9 Chronic obstructive pulmonary disease, unspecified; F32.9 Major depressive disorder, single episode, unspecified
CPT/HCPCS: 36415; 80053; 80061; 84443; 85025

== ENCOUNTER → 2017-11-19 | Outpatient (CLI) | payer MEDICARE, MEDICAID ==
[2017-11-19 14:11] LABS: CREATININE 0.59 MG/DL (0.50-1.00)
== END ==
LOC: CLAB 13:24
PROVIDERS: ATTEND Internal Medicine Gastroenterology
DX: R63.4 Abnormal weight loss (principal)
CPT/HCPCS: 36415; 82565; 84520

== ENCOUNTER 2018-01-28 11:17 | Emergency (ER) | payer MEDICARE, MEDICAID ==
[~2018-01-28] VITALS: Ht 165.1 cm; Wt 70.0 kg
[2018-01-28 11:26] VITALS: BP 119/66; PULSE 67; RESP 18; TEMP 98.9; O2SAT 94
[2018-01-28] MEDS ORDERED: VENTAER INH (11:56)
[2018-01-28] MEDS ORDERED: FLUV50TA PO (11:56)
== END 2018-01-28 13:20 | disposition left against medical advice (07) ==
LOC: NEPD 11:17
DX: R07.89 Other chest pain (principal)
CPT/HCPCS: 99281

== ENCOUNTER 2018-05-18 04:19 | Inpatient (IN) ==
[2018-05-18] MEDS ORDERED: Morphine Inj 4 MG/ML Vial IV.PUSH ONE (04:50)
[2018-05-18] MEDS ORDERED: Acetaminophen 325 MG Tablet PO ONE ×2 (04:52→06:33)
[2018-05-18] MEDS ORDERED: Sod Chloride 0.9% Inj 1,000 ML IV.SIG ONE ×2 (04:52→05:02)
--- NOTE | 2018-05-18 04:55 | ED ---
HPI General Chief complaint: Abdominal Pain Stated complaint: Recheck Time Seen by Provider: 05/18/18 04:43 Source: patient and old records reviewed Mode of arrival: ambulatory Limitations: no limitations History of Present Illness HPI narrative: The patient is a 73-year-old female with history of hypothyroidism COPD depression as well as kidney stones recently diagnosed that has been seen in the hospital for the past 4 days for several different reasons that include midepigastric pain and incidental finding of a 9 mm left ureteral stone as well as COPD exacerbation. The patient was advised to follow-up with urology which she has not and was discharged on antibiotics and pain medications which she has not filled yet she returns stating that the Ultram she was given interaction with 1 of her medications and that she has not been able to take the antibiotics. She has nausea and and left flank pain Onset (ago): day(s) (4) Related Data Home Medications Medication Instructions Recorded Confirmed albuterol sulfate 2 puff INHALATION Q4-6H PRN 02/26/18 05/18/18 albuterol sulfate [Ventolin HFA] 2 puff INHALATION Q4H PRN 02/26/18 05/18/18 aspirin [Aspir-81] 81 mg PO DAILY 02/26/18 05/18/18 fluvoxamine 100 mg PO DAILY 02/26/18 05/18/18 levothyroxine 50 mcg PO EVERY OTHER DAY 02/26/18 05/18/18 rosuvastatin 40 mg PO DAILY 02/26/18 05/18/18 alprazolam 0.25 mg PO BID PRN 05/15/18 05/18/18 tiotropium-olodaterol [Stiolto 2 puff INHALATION DAILY 05/15/18 05/18/18 Respimat] Previous Rx's Medication Instructions Recorded ondansetron [Zofran ODT] 4 mg PO Q6H PRN #7 tab 05/15/18 tramadol 50 mg PO Q6-8H PRN #7 tab 05/15/18 Allergies Allergy/AdvReac Type Severity Reaction Status Date / Time No Known Allergies Allergy Verified 05/18/18 04:34 Review of Systems ROS: all other systems reviewed are negative Respiratory Reports wheezing PMFSH History History Provided By: Patient and Medical Record Medical History Medical History Hypothyroidism (Chronic) COPD (chronic obstructive pulmonary disease) (Chronic) History of OCD (obsessive compulsive disorder) (Chronic) Depression (Chronic) Anxiety (Acute) High cholesterol (Acute) Prediabetes (Acute) Tobacco abuse (Acute) Kidney stone on left side (Acute) Surgical History Surgical History Amputation, finger, traumatic (Acute) History of appendectomy (Acute) Family History Family History Sister Family history of acute myocardial infarction Mother Family history of acute myocardial infarction Social History Social History Substance History: No History of Abuse Second Hand Smoke Exposure: No Smoking Status: Current every day smoker Tobacco Type: Cigarettes Packs Per Day: 1 Cigarettes Per Day: 20.0 How Often Do You Have a Drink Containing Alcohol: Never Recent Travel in [facility] within the Last 8 Weeks: No Recent Out of Country Travel within the Last 8 Weeks: No Exam Narrative Exam Narrative: GENERAL: Alert and oriented in mild distress due to pain. unkept. Appears older than age SKIN: Focused skin assessment warm/dry. HEAD: Atraumatic. Normocephalic. EYES: Pupils equal and round. No scleral icterus. No injection or drainage. ENT: No nasal bleeding or discharge. Mucous membranes pink and moist. NECK: Trachea midline. No JVD. CARDIOVASCULAR: Regular rate and rhythm. No murmur appreciated. RESPIRATORY: No accessory muscle use. Bilateral inspiratory expiratory wheezes. Breath sounds equal bilaterally. GASTROINTESTINAL: Abdomen soft, non-tender, nondistended. Hepatic and splenic margins not palpable. MUSCULOSKELETAL: No obvious deformities. No clubbing. No cyanosis. No edema. NEUROLOGICAL: Awake and alert. No obvious cranial nerve deficits. Motor grossly within normal limits. Normal speech. PSYCHIATRIC: Appropriate mood and affect; insight and judgment normal. Back/Spine/Pelvis Back: CVA tenderness (left) Course Initial Documented Vital Signs Temperature 100.2 F H 05/18/18 04:35 Pulse Rate 75 05/18/18 04:35 Respiratory Rate 17 05/18/18 04:35 Blood Pressure 109/53 L 05/18/18 04:35 Pulse Oximetry 91 L 05/18/18 04:35 Last Documented Vital Signs Temperature 97.9 F 05/18/18 16:00 Pulse Rate 76 05/18/18 16:00 Respiratory Rate 17 05/18/18 16:00 Blood Pressure 154/67 H 05/18/18 16:00 Pulse Oximetry 94 L 05/18/18 18:58 Medical Decision Making MDM Narrative Medical decision making narrative: No leukocytosis or fever. CT was obtain again and appears to have a 1 cm left ureteral stone obstructing with neuropathy and stranding. Symptoms suggestive of pyelonephritis with low-grade fever nausea left flank pain no leukocytosis at this time. She was covered prophylactically with antibiotics and admitted for urologic consultation. Medical Screen Exam Complete: Yes Emergency Medical Condition: Yes Lab Data Lab results reviewed: Yes I reviewed the patient's lab results. Result diagrams: 05/18/18 05:08 05/18/18 05:08 Lab Results 05/18/18 05/18/18 05/18/18 Range/Units 05:08 05:08 05:08 WBC 8.3 (4.0-11.0) th/mm3 RBC 4.28 (4.00-5.30) mil/mm3 Hgb 13.5 (11.6-15.3) gm/dL Hct 39.3 (35.0-46.0) % MCV 91.9 (80.0-100.0) fL MCH 31.6 (27.0-34.0) pg MCHC 34.4 (32.0-36.0) % RDW 13.3 (11.6-17.2) % Plt Count 107 L D (150-450) th/mm3 MPV 8.3 (7.0-11.0) fL Neut % (Auto) 83.5 H (16.0-70.0) % Lymph % (Auto) 5.7 L (9.0-44.0) % [place] % (Auto) 9.2 H (0.0-8.0) % Eos % (Auto) 0.9 (0.0-4.0) % Baso % (Auto) 0.7 (0.0-2.0) % Neut # (Auto) 7.0 (1.8-7.7) th/mm3 Lymph # (Auto) 0.5 L (1.0-4.8) th/mm3 [place] # (Auto) 0.8 (0.0-0.9) th/mm3 Eos # (Auto) 0.1 (0.0-0.4) th/mm3 Baso # (Auto) 0.1 (0.0-0.2) th/mm3 WBC Differential . Differential Comment Auto diff final PT (9.8-11.6) sec INR Ratio APTT (24.3-30.1) sec Sodium 137 (136-145) meq/L Potassium 4.0 (3.5-5.1) meq/L Chloride 101 (98-107) meq/L Carbon Dioxide 30.1 (21.0-32.0) meq/L Anion Gap 6 (5-15) meq/L BUN 21 H (7-18) mg/dL Creatinine 0.95 (0.50-1.00) mg/dL Estimated GFR 58 L (>89) mL/min POC Glucose (68-110) mg/dl Random Glucose 106 (74-106) mg/dL Lactic Acid 0.9 (0.4-2.0) mmol/L Calcium 8.8 (8.5-10.1) mg/dL Troponin I (0.02-0.05) ng/mL Urine Color (Yellw/Straw) Urine Clarity (Clear) Urine pH (5.0-8.5) Ur Specific [place] (1.002-1.035) Urine Protein (Neg-Trace) mg/dL Urine Glucose (UA) (Negative) mg/dL Urine Ketones (Negative) mg/dL Urine Occult Blood (Negative) Urine Nitrate (Negative) Urine Bilirubin (Negative) Urine Urobilinogen (Less than 2) mg/dL Ur Leukocyte Esterase (Negative) Urine RBC (0-3) /hpf Urine WBC (0-5) /hpf Urine Bacteria (None) /hpf Micro UA Comment Ur Microscopic Review Urine Culture Comments 05/18/18 05/18/18 05/18/18 Range/Units 05:08 09:16 11:50 WBC (4.0-11.0) th/mm3 RBC (4.00-5.30) mil/mm3 Hgb (11.6-15.3) gm/dL Hct (35.0-46.0) % MCV (80.0-100.0) fL MCH (27.0-34.0) pg MCHC (32.0-36.0) % RDW (11.6-17.2) % Plt Count (150-450) th/mm3 MPV (7.0-11.0) fL Neut % (Auto) (16.0-70.0) % Lymph % (Auto) (9.0-44.0) % [place] % (Auto) (0.0-8.0) % Eos % (Auto) (0.0-4.0) % Baso % (Auto) (0.0-2.0) % Neut # (Auto) (1.8-7.7) th/mm3 Lymph # (Auto) (1.0-4.8) th/mm3 [place] # (Auto) (0.0-0.9) th/mm3 Eos # (Auto) (0.0-0.4) th/mm3 Baso # (Auto) (0.0-0.2) th/mm3 WBC Differential Differential Comment PT 11.1 (9.8-11.6) sec INR 1.1 Ratio APTT 22.9 L (24.3-30.1) sec Sodium (136-145) meq/L Potassium (3.5-5.1) meq/L Chloride (98-107) meq/L Carbon Dioxide (21.0-32.0) meq/L Anion Gap (5-15) meq/L BUN (7-18) mg/dL Creatinine (0.50-1.00) mg/dL Estimated GFR (>89) mL/min POC Glucose (68-110) mg/dl Random Glucose (74-106) mg/dL Lactic Acid (0.4-2.0) mmol/L Calcium (8.5-10.1) mg/dL Troponin I Less than 0.02 L (0.02-0.05) ng/mL Urine Color [place] (Yellw/Straw) Urine Clarity Cloudy H (Clear) Urine pH 5.0 (5.0-8.5) Ur Specific [place] 1.024 (1.002-1.035) Urine Protein 100 H (Neg-Trace) mg/dL Urine Glucose (UA) Negative (Negative) mg/dL Urine Ketones Trace H (Negative) mg/dL Urine Occult Blood Large H (Negative) Urine Nitrate Negative (Negative) Urine Bilirubin Negative (Negative) Urine Urobilinogen Less than 2 (Less than 2) mg/dL Ur Leukocyte Esterase Small H (Negative) Urine RBC (0-3) /hpf Urine WBC (0-5) /hpf Urine Bacteria Many H (None) /hpf Micro UA Comment Culture indicated Ur Microscopic Review Not Reportable Urine Culture Comments Culture indicated 05/18/18 Range/Units 18:15 WBC (4.0-11.0) th/mm3 RBC (4.00-5.30) mil/mm3 Hgb (11.6-15.3) gm/dL Hct (35.0-46.0) % MCV (80.0-100.0) fL MCH (27.0-34.0) pg MCHC (32.0-36.0) % RDW (11.6-17.2) % Plt Count (150-450) th/mm3 MPV (7.0-11.0) fL Neut % (Auto) (16.0-70.0) % Lymph % (Auto) (9.0-44.0) % [place] % (Auto) (0.0-8.0) % Eos % (Auto) (0.0-4.0) % Baso % (Auto) (0.0-2.0) % Neut # (Auto) (1.8-7.7) th/mm3 Lymph # (Auto) (1.0-4.8) th/mm3 [place] # (Auto) (0.0-0.9) th/mm3 Eos # (Auto) (0.0-0.4) th/mm3 Baso # (Auto) (0.0-0.2) th/mm3 WBC Differential Differential Comment PT (9.8-11.6) sec INR Ratio APTT (24.3-30.1) sec Sodium (136-145) meq/L Potassium (3.5-5.1) meq/L Chloride (98-107) meq/L Carbon Dioxide (21.0-32.0) meq/L Anion Gap (5-15) meq/L BUN (7-18) mg/dL Creatinine (0.50-1.00) mg/dL Estimated GFR (>89) mL/min POC Glucose 96 (68-110) mg/dl Random Glucose (74-106) mg/dL Lactic Acid (0.4-2.0) mmol/L Calcium (8.5-10.1) mg/dL Troponin I (0.02-0.05) ng/mL Urine Color (Yellw/Straw) Urine Clarity (Clear) Urine pH (5.0-8.5) Ur Specific [place] (1.002-1.035) Urine Protein (Neg-Trace) mg/dL Urine Glucose (UA) (Negative) mg/dL Urine Ketones (Negative) mg/dL Urine Occult Blood (Negative) Urine Nitrate (Negative) Urine Bilirubin (Negative) Urine Urobilinogen (Less than 2) mg/dL Ur Leukocyte Esterase (Negative) Urine RBC (0-3) /hpf Urine WBC (0-5) /hpf Urine Bacteria (None) /hpf Micro UA Comment Ur Microscopic Review Urine Culture Comments Imaging Data Radiologist's impression: Drainage Catheter Insertion 05/18/18 00:00 CONCLUSION: 1. Uncomplicated nephroureteral stent placement as above. Abdomen/Pelvis CT 05/18/18 04:51 CONCLUSION: 1. 1 cm left ureteropelvic junction calculus again seen. Moderate left hydronephrosis is now seen along with new perinephric stranding. 2. No other significant interval change. Discharge Plan Discharge Disposition Patient Disposition: 30 Still Patient Discharge Condition Condition: Stable Discharge Details Diagnosis: Left nephrolithiasis, Hydronephrosis of left kidney, COPD (chronic obstructive pulmonary disease) Physicians Team ED Provider: Matias Hdz Primary Care Provider: Kevin Soria Attending Provider: [place] High Other Providers: Phong Woodall ; [facility],Insurance Discharge Interventions Interventions: ED Discharge Assessment Last Done: 05/18/18 10:51 Vital Signs Last Done: 05/18/18 07:22 Status ED Status: Left Department Discharge Information Discharge Date/Time: 05/18/18 10:51
[2018-05-18 05:31] LABS: Baso # (Auto) 0.1 th/mm3 (0.0-0.2); Baso % (Auto) 0.7 % (0.0-2.0); Eos # (Auto) 0.1 th/mm3 (0.0-0.4); Eos % (Auto) 0.9 % (0.0-4.0); Hematocrit 39.3 % (35.0-46.0); Hemoglobin 13.5 gm/dL (11.6-15.3); Lymph # (Auto) 0.5 th/mm3 (1.0-4.8); Lymph % (Auto) 5.7 % (9.0-44.0); Mean Corpuscular HGB Conc 34.4 % (32.0-36.0); Mean Corpuscular Hemoglobin 31.6 pg (27.0-34.0); Mean Corpuscular Volume 91.9 fL (80.0-100.0); Mean Platelet Volume 8.3 fL (7.0-11.0); Mono # (Auto) 0.8 th/mm3 (0.0-0.9); Mono % (Auto) 9.2 % (0.0-8.0); Neut % (Auto) 83.5 % (16.0-70.0); Platelet Count 107 th/mm3 (150-450); Red Blood Count 4.28 mil/mm3 (4.00-5.30); Red Cell Distribution Width 13.3 % (11.6-17.2); White Blood Count 8.3 th/mm3 (4.0-11.0)
[2018-05-18 05:48] LABS: Calcium 8.8 mg/dL (8.5-10.1); Carbon Dioxide 30.1 meq/L (21.0-32.0)
--- NOTE | 2018-05-18 05:56 | CT ---
EXAM DATE: 05/18/2018 4:55 AM EDT AGE/SEX: 73 years / Female INDICATIONS: Left flank pain. Follow up renal stone. CLINICAL DATA: This is the patient's subsequent encounter. Patient reports that signs and symptoms h ave been present for 3 days and indicates a pain score of 7/10. MEDICAL/SURGICAL HISTORY: Chronic obstructive pulmonary disease. Renal calculi. None. RADIATION DOSE: 7.47 CTDI (mGy) COMPARISON: [facility] – [place], [place] ABDOMEN & PELVIS W/O CONTRAST, 05/15/2018. . TECHNIQUE: Multiple contiguous axial images were obtained through the abdomen. Images were obtained using multiple row detector helical technique. Using automated exposure control and adjustment of the mA and/or kV according to patient size, radiation dose was kept as low as reasonably achievable to o btain optimal diagnostic quality images. DICOM format image data is available electronically for rev iew and comparison. FINDINGS: Lower Lungs: The visualized lower lungs are clear. Liver: 9 mm calcified gallstone in the dependent portion of the gallbladder. No pericholecystic infla mmatory changes identified. Liver is homogeneous and within normal limits. Spleen: Homogeneous density without enlargement. Pancreas: Unremarkable without mass or calcification. Kidneys: 8 mm x 1 cm calculus at the left ureteropelvic junction. Moderate left hydronephrosis and p erinephric stranding. 2 adjacent 2 mm calculi in the anterior midpole of the left kidney. The perinep hric stranding is new when compared to the prior study. The degree of hydronephrosis is unchanged. Adrenal Glands: Unremarkable. Aorta: Diffuse abdominal aorta calcification. No change in diameter. Bowel/Mesentery: The bowel loops are grossly unremarkable. The cecum and sigmoid colon have a normal configuration. Abdominal Wall: Intact. Retroperitoneum: No evidence of adenopathy in the retrocrural, para-aortic, or deep pelvic regions. Bladder: Contours are smooth. Reproductive Organs: No abnormal masses or calcifications seen. Inguinal: The inguinal region is unremarkable without evidence of adenopathy. Bony Structures: Unremarkable. CONCLUSION: 1. 1 cm left ureteropelvic junction calculus again seen. Moderate left hydronephrosis is now seen al elian with new perinephric stranding. 2. No other significant interval change. Electronically signed by: Varinder Butler MD 05/18/2018 5:55 AM EDT
--- NOTE | 2018-05-18 07:15 | P.HPFP ---
History of Present Illness Primary Care Physician: Kevin Soria MD, R3 <Argentina High R - 05/18/18 15:59> Kevin Soria MD, R3 <Juan COULTERMikal 05/18/18 07:15> Chief Complaint: abdominal pain <Juan Mikal COULTER 05/18/18 07:15> History of Present Illness: Ms Jones is a 73 YO female with Hx COPD, hypothyroidism, arrhythmia with murmur, tobacco use, depression and anxiety and prediabetes who presents to ED after checking out of the ED on Wednesday and Wednesday for same problem which is pain described as 10/10 in her back and radiating to the left abdomen. Pain has been evident since Wednesday. Pain is constant and unbearable and is interrupting sleep. She left the ED on Wednesday and Wednesday to take care of things at home. She felt nauseous on Wednesday but never did throw up. She was given pain medication script for Tramadol and Zofran for nausea but never got them filled. Pt has fever this morning in the ED to 100.3. Pt has cut down on her smoking and is seeing a counsellor. Has home O2 requirement at 2L by [place]. Pt was prescribed Tamsulosin 0.4mg by Dr Soria to help pass kidney stone. Pt follows with Dr Ontiveros for pulmonology and Dr Barrientos for cardiology. Pt denies CP, does have SOB and cough due to COPD, no N/V/D at this time, no dysuria, no hematuria, no leg pain or swelling. SurgHx: Appendectomy, part of left index finger chopped off FamHx: Mother - heart attack in sleep, at 70; Father - emphysema at age late 70s or [id number] SocHx: smokes 1 ppd, down from 3 ppd, smoked since 16 YO. Quit for 5 years and restarted 5 years ago. No EtOH or recreational drugs. <Denisharahel Mikal COULTER - 05/18/18 09:01> - Diagnosis (1) Left nephrolithiasis (2) Hypothyroidism (3) COPD (chronic obstructive pulmonary disease) (4) History of OCD (obsessive compulsive disorder) (5) Depression (6) Anxiety (7) High cholesterol (8) Prediabetes <Argentina High - 05/18/18 15:59> (1) Left nephrolithiasis (2) Hypothyroidism (3) COPD (chronic obstructive pulmonary disease) (4) History of OCD (obsessive compulsive disorder) (5) Depression <Juan COULTERMikal 05/18/18 09:01> Inpatient Certification: I certify that the inpatient services were ordered in accordance with Medicare regulations governing the order. This includes certification that hospital inpatient services are reasonable and necessary and in the case of services not specified as inpatient-only under 42 CFR 419.22(n), that they are appropriately provided as inpatient services in accordance to with the 2-midnight benchmark under 43 CFR 412.3(e) <CindybellaArgentina alfredo 05/18/18 15:59> Estimated Total Length of Stay (Days): 2 <AnilaArgentina 05/18/18 15:59 > Plans for Post Hospital Care: Home <AnilaArgentina 05/18/18 15:59> Review of Systems Constitutional: Reports fever(s), Denies chills, Denies weakness <Juan COULTER [facility] 05/18/18 07:58> Eyes: Denies change in vision <[facility] 05/18/18 07:58> Cardiovascular: Reports lightheadedness, Reports shortness of breath, Denies chest pain <Juan COULTERMikal 05/18/18 07:58> Respiratory: Reports cough, Reports shortness of breath <[facility] 05/18/18 07:58> Gastrointestinal: Reports abdominal pain, Reports other (sometimes pain with passing stool), Denies bright, red blood in stools, Denies loose stools, Denies nausea, Denies vomiting, Denies vomiting blood <[facility] 05/18/18 07:58> Genitourinary: Denies abnormal vaginal bleeding, Denies difficulty starting urination, Denies painful urination, Denies vaginal discharge <Juan COULTER [facility] 05/18/18 07:58> Musculoskeletal: Reports other (leftr flank pain) <[facility] 07:58> Skin/Breast: Denies lesions, Denies rash <Juan COULTERMikal 05/18/18 07:58> Neurologic: Reports dizziness, Reports headache(s), Reports radiating pain ( left flank) <Mikal Martinez III 05/18/18 07:58> PMFSH - History History Provided By: Patient, Medical Record <Mikal Martinez III 05/18/18 07 :15> - Medical History Medical History: Medical History (Last Updated 05/18/18 @ 15:56 by Argentina High MD) Hypothyroidism (Chronic) COPD (chronic obstructive pulmonary disease) (Chronic) History of OCD (obsessive compulsive disorder) (Chronic) Depression (Chronic) Anxiety High cholesterol Prediabetes Tobacco abuse Kidney stone on left side <Argentina High Bella 05/18/18 15:59> Medical History (Last Reviewed 05/18/18 @ 05:32 by Maria Alejandra Rios RN) Hypothyroidism (Acute) COPD (chronic obstructive pulmonary disease) (Acute) History of OCD (obsessive compulsive disorder) (Acute) Depression (Acute) Kidney stone on left side <Mikal Martinez III 05/18/18 07:15> - Surgical History Surgical History: Surgical History (Last Updated 05/18/18 @ 15:57 by Argentina High MD) Amputation, finger, traumatic History of appendectomy <Argentina High Bella 05/18/18 15:59> - Family History Family History: Family History (Last Updated 05/18/18 @ 15:58 by Argenitna High MD) Sister Family history of acute myocardial infarction Mother Family history of acute myocardial infarction <Argentina High Bella 05/18/18 15:59> - Social History I have reviewed the patient's Social History: Yes <Argentina High Bella 05/18 15:59> - Tobacco History Second Hand Smoke Exposure: Yes <Juan COULTERMikal López 05/18/18 07:15> Tobacco Use In Past 30 Days: Yes <Juan COULTERMikal López 05/18/18 07:15> Smoking Status: Current every day smoker <Juan COULTERMikal López 05/18/18 07:15> Tobacco Type: Cigarettes <Juan COULTERMikal López 05/18/18 07:15> Packs Per Day: 1 <Mikal Martinez III 05/18/18 07:15> Cigarettes Per Day: 20.0 <Mikal Martinez III 05/18/18 07:15> - Alcohol History How Often Do You Have a Drink Containing Alcohol: Never <Mikal Martinez III 05/18/18 07:15> - Substance Use History Substance History: No History of Abuse <Mikal Martinez III 05/18/18 07:15> - Travel History Recent Travel in the [facility] Within the Last 8 Weeks: No <Mikal Martinez III 07:15> Recent Travel Out of the Country Within the Last 8 Weeks: No <Mikal Martinez III 05/18/18 07:15> - Immunization History Tetanus Immunization: <5 Years <Mikal Martinez III 05/18/18 07:15> Hx Influenza Vaccine This Season: Yes <Mikal Martinez III 05/18/18 07:15> Medications and Allergies Allergies Allergy/AdvReac Type Severity Reaction Status Date / Time No Known Allergies Allergy Verified 05/18/18 04:34 <Argentina High - 05/18/18 15:59> Home Medications Medication Instructions Recorded Confirmed Type albuterol sulfate 2 puff INHALATION Q4-6H PRN 02/26/18 05/18/18 History albuterol sulfate [Ventolin HFA] 2 puff INHALATION Q4H PRN 02/26/18 05/18/18 History aspirin [Aspir-81] 81 mg PO DAILY 02/26/18 05/18/18 History fluvoxamine 100 mg PO DAILY 02/26/18 05/18/18 History levothyroxine 50 mcg PO EVERY OTHER DAY 02/26/18 05/18/18 History rosuvastatin 40 mg PO DAILY 02/26/18 05/18/18 History alprazolam 0.25 mg PO BID PRN 05/15/18 05/18/18 History tiotropium-olodaterol [Stiolto 2 puff INHALATION DAILY 05/15/18 05/18/18 History Respimat] <Argentina High 05/18/18 15:59> Active Medications: Active Medications Acetaminophen (Tylenol) 650 mg PO Q4H PRN PRN Reason: pain1-3 and/or temp >100.4 Last Admin: 05/18/18 14:09 Dose: 650 mg Albuterol (Duoneb Neb (Prn)) 1 ampul NEB Q2HR NEB PRN PRN Reason: DYSPNEA Albuterol (Ventolin Hfa Inh) 2 puff INH Q4H PRN PRN Reason: RESPIRATORY DISTRESS Alprazolam (Xanax) 0.25 mg PO BID PRN PRN Reason: Anxiety Last Admin: 05/18/18 12:43 Dose: 0.25 mg Aspirin (Ecotrin) 81 mg PO DAILY [place] Atorvastatin Calcium (Lipitor) 80 mg PO DAILY [place] Sodium Chloride (Ns Inj) 1,000 mls @ 100 mls/hr IV.CONT .Q10H [place] Levothyroxine Sodium (Synthroid) 50 mcg PO Q2D@0600 [place] Last Admin: 05/18/18 09:19 Dose: 50 mcg Ondansetron HCl (Zofran Odt) 4 mg PO Q6H PRN PRN Reason: nausea and vomiting Patient Own Medication[Stiolto Respimat] 0 each INH DAILY [facility] Senna/Docusate Sodium (Xochitl-Colace) 1 tab PO BID [place] Sodium Chloride (Ns Flush) 2 ml IV.FLUSH BID [place] Sodium Chloride (Ns Flush) 2 ml IV.FLUSH PRN PRN PRN Reason: FLUSH AFTER USING IV ACCESS Tramadol HCl (Ultram) 50 mg PO Q6H PRN PRN Reason: PAIN 1-10 Last Admin: 05/18/18 12:43 Dose: 50 mg <Argentina High R - 05/18/18 15:59> Active Medications Ceftriaxone Sodium 1,000 mg/ (Sodium Chloride) 100 mls @ 200 mls/hr IV.SIG ONCE ONE Stop: 05/18/18 07:02 <Mikal Martinez III H - 05/18/18 07:15> Exam Vital signs: Vital Signs 05/18/18 04:35 05/18/18 05:31 05/18/18 07:22 Temperature 100.2 F H 100.3 F H 99.1 F Pulse Rate 75 65 65 Respiratory Rate 17 20 18 Blood Pressure 109/53 L 141/63 H 106/58 L Pulse Oximetry 91 L 92 L 96 05/18/18 12:10 05/18/18 12:25 05/18/18 12:40 Temperature 98.1 F Pulse Rate 62 51 L 59 L Respiratory Rate 18 18 18 Blood Pressure 106/47 L 106/47 L 100/57 L Pulse Oximetry 91 L 90 L 94 L Intake & Output 05/17/18 05/18/18 05/18/18 18:59 06:59 18:59 Intake Total 1200 / 1200 Balance 1200 / 1200 Weight 65.771 kg Intake: IV 1200 / 1200 Levaquin 500 mg Premix Inj 500 100 / 100 mg In 100 ml @ 0 mls/hr IV.SIG .STK-MED ONE Rx#:[id number] NS Inj 1,000 ML @ Wide Open IV. 1000 / 1000 SIG BOLUS ONE Rx#:[id number] Rocephin Inj 1,000 MG In NS Inj 100 / 100 100 ML @ 200 mls/hr IV.SIG ONCE ONE Rx#:[id number] <Wenceslao Highie R - 05/18/18 15:59> Vital Signs 05/18/18 04:35 05/18/18 05:31 Temperature 100.2 F H 100.3 F H Pulse Rate 75 65 Respiratory Rate 17 20 Blood Pressure 109/53 L 141/63 H Pulse Oximetry 91 L 92 L Intake & Output 05/17/18 05/17/18 05/18/18 06:59 18:59 06:59 Weight 65.771 kg <Mikal Martinez III H - 05/18/18 07:15> Narrative: GENERAL: Elderly female lying in bed in NAD SKIN: Warm and dry. No rash; there is an irregular dark stover patch on upper mid- back surrounded by several nevi HEAD: Normocephalic. Atraumatic. EYES: No scleral icterus. No injection or drainage. NECK: Supple, trachea midline. No lymphadenopathy; thyroid slightly enlarged. CARDIOVASCULAR: Regular rate and rhythm with 1/6 murmur; no gallop or rub. Peripheral pulses palpable in all extremities. RESPIRATORY: Diminished breath sounds bilaterally with no wheezing, rales or rhonchi. No accessory muscle use. GASTROINTESTINAL: Abdomen soft, non-tender except for mild TTP on left flank, nondistended. BS+. No guarding or rebound. MUSCULOSKELETAL: No cyanosis, or edema. BACK: Nontender without obvious deformity. No CVA tenderness. <Mikal Martinez III H - 05/18/18 07:58> Results - Labs Result diagrams: 05/18/18 05:08 05/18/18 05:08 <Argentina High R - 05/18/18 15:59> Abnormal lab results 05/18/18 05/18/18 05/18/18 Range/Units 05:08 05:08 05:08 Plt Count 107 L D (150-450) th/mm3 Neut % (Auto) 83.5 H (16.0-70.0) % Lymph % (Auto) 5.7 L (9.0-44.0) % [place] % (Auto) 9.2 H (0.0-8.0) % Lymph # (Auto) 0.5 L (1.0-4.8) th/mm3 APTT (24.3-30.1) sec BUN 21 H (7-18) mg/dL Estimated GFR 58 L (>89) mL/min Troponin I Less than 0.02 L (0.02-0.05) ng/mL Urine Clarity (Clear) Urine Protein (Neg-Trace) mg/dL Urine Ketones (Negative) mg/dL Urine Occult Blood (Negative) Ur Leukocyte Esterase (Negative) Urine Bacteria (None) /hpf 05/18/18 05/18/18 Range/Units 09:16 11:50 Plt Count (150-450) th/mm3 Neut % (Auto) (16.0-70.0) % Lymph % (Auto) (9.0-44.0) % [place] % (Auto) (0.0-8.0) % Lymph # (Auto) (1.0-4.8) th/mm3 APTT 22.9 L (24.3-30.1) sec BUN (7-18) mg/dL Estimated GFR (>89) mL/min Troponin I (0.02-0.05) ng/mL Urine Clarity Cloudy H (Clear) Urine Protein 100 H (Neg-Trace) mg/dL Urine Ketones Trace H (Negative) mg/dL Urine Occult Blood Large H (Negative) Ur Leukocyte Esterase Small H (Negative) Urine Bacteria Many H (None) /hpf Short CBC 05/18/18 Range/Units 05:08 WBC 8.3 (4.0-11.0) th/mm3 Hgb 13.5 (11.6-15.3) gm/dL Hct 39.3 (35.0-46.0) % Plt Count 107 L D (150-450) th/mm3 [facility] 05/18/18 05:08 Sodium 137 Potassium 4.0 Chloride 101 Carbon Dioxide 30.1 BUN 21 H Creatinine 0.95 Calcium 8.8 Cardiac Enzymes 05/18/18 Range/Units 05:08 Troponin I Less than 0.02 L (0.02-0.05) ng/mL Urine 05/18/18 Range/Units 11:50 Urine Color [place] (Yellw/Straw) Urine Clarity Cloudy H (Clear) Urine pH 5.0 (5.0-8.5) Ur Specific [place] 1.024 (1.002-1.035) Urine Protein 100 H (Neg-Trace) mg/dL Urine Glucose (UA) Negative (Negative) mg/dL <Argentina High R - 05/18/18 15:59> Abnormal lab results 05/18/18 05/18/18 Range/Units 05:08 05:08 Plt Count 107 L D (150-450) th/mm3 Neut % (Auto) 83.5 H (16.0-70.0) % Lymph % (Auto) 5.7 L (9.0-44.0) % [place] % (Auto) 9.2 H (0.0-8.0) % Lymph # (Auto) 0.5 L (1.0-4.8) th/mm3 BUN 21 H (7-18) mg/dL Estimated GFR 58 L (>89) mL/min Short CBC 05/18/18 Range/Units 05:08 WBC 8.3 (4.0-11.0) th/mm3 Hgb 13.5 (11.6-15.3) gm/dL Hct 39.3 (35.0-46.0) % Plt Count 107 L D (150-450) th/mm3 [facility] 05/18/18 05:08 Sodium 137 Potassium 4.0 Chloride 101 Carbon Dioxide 30.1 BUN 21 H Creatinine 0.95 Calcium 8.8 <Mikal Martinez III H - 05/18/18 07:15> - Imaging Impressions Drainage Catheter Insertion 05/18/18 00:00 CONCLUSION: 1. Uncomplicated nephroureteral stent placement as above. Abdomen/Pelvis CT 05/18/18 04:51 CONCLUSION: 1. 1 cm left ureteropelvic junction calculus again seen. Moderate left hydronephrosis is now seen along with new perinephric stranding. 2. No other significant interval change. <Argentina High - 05/18/18 15:59> Impressions Abdomen/Pelvis CT 05/18/18 04:51 CONCLUSION: 1. 1 cm left ureteropelvic junction calculus again seen. Moderate left hydronephrosis is now seen along with new perinephric stranding. 2. No other significant interval change. <Mikal Martinez III [facility] 05/18/18 07:15> Caprini VTE Risk Assessment Caprini VTE Risk Assessment: Moderate/High Risk (score >= 2) <Mikal Martinez III [facility] 05/18/18 07:58> Caprini Risk Assessment Model: Point Value = 1 Point Value = 2 Point Value = 3 Point Value = 5 Age 41-60 Minor surgery BMI > 25 kg/m2 Swollen legs Varicose veins or History of unexplained or recurrent spontaneous Oral contraceptives or hormone replacement Sepsis (< 1 month) Serious lung disease, including pneumonia (< 1 month) Abnormal pulmonary function Acute myocardial infarction Congestive heart failure (< 1 month) History of inflammatory bowel disease Medical patient at bed rest Age 61-74 Arthroscopic surgery Major open surgery (> 45 min) Laparoscopic surgery (> 45 min) Malignancy Confined to bed (> 72 hours) Immobilizing plaster cast Central venous access Age >= 75 History of VTE Family history of VTE Factor V Leiden Prothrombin [id number] Lupus anticoagulant Anticardiolipin antibodies Elevated serum homocysteine Heparin-induced thrombocytopenia Other congenital or acquired thrombophilia Stroke (< 1 month) Elective arthroplasty Hip, pelvis, or leg fracture Acute spinal cord injury (< 1 month) <Argentina High [facility] 05/18/18 15:59> Prophylaxis Regimen: Total Risk Factor Score Risk Level Prophylaxis Regimen 0-1 Low Early ambulation 2 Moderate Order ONE of the following: *Sequential Compression Device (SCD) *Heparin 5000 units SQ BID 3-4 Higher Order ONE of the following medications: *Heparin 5000 units SQ TID *Enoxaparin/Lovenox 40 mg SQ daily (WT < 150 kg, CrCl > 30 mL/min) *Enoxaparin/Lovenox 30 mg SQ daily (WT < 150 kg, CrCl > 10-29 mL/min) *Enoxaparin/Lovenox 30 mg SQ BID (WT < 150 kg, CrCl > 30 mL/min) AND/OR *Sequential Compression Device (SCD) 5 or more Highest Order ONE of the following medications: *Heparin 5000 units SQ TID (Preferred with Epidurals) *Enoxaparin/Lovenox 40 mg SQ daily (WT < 150 kg, CrCl > 30 mL/min) *Enoxaparin/Lovenox 30 mg SQ daily (WT < 150 kg, CrCl > 10-29 mL/min) *Enoxaparin/Lovenox 30 mg SQ BID (WT < 150 kg, CrCl > 30 mL/min) AND *Sequential Compression Device (SCD) <AnilaArgentina 05/18/18 15:59> Assessment and Plan - Assessment (1) Left nephrolithiasis Code(s): N20.0 - Calculus of kidney Status: Acute (2) Hypothyroidism Code(s): E03.9 - Hypothyroidism, unspecified Status: Chronic (3) COPD (chronic obstructive pulmonary disease) Code(s): J44.9 - Chronic obstructive pulmonary disease, unspecified Status: Chronic (4) History of OCD (obsessive compulsive disorder) Code(s): Z86.59 - Personal history of other mental and behavioral disorders Status: Chronic (5) Depression Code(s): F32.9 - Major depressive disorder, single episode, unspecified Status : Chronic (6) Anxiety Code(s): F41.9 - Anxiety disorder, unspecified Status: Acute (7) High cholesterol Code(s): E78.00 - Pure hypercholesterolemia, unspecified Status: Acute (8) Prediabetes Code(s): R73.03 - Prediabetes Status: Acute <Argentina High 05/18/18 15:59> (1) Left nephrolithiasis Code(s): N20.0 - Calculus of kidney Status: Acute (2) Hypothyroidism Code(s): E03.9 - Hypothyroidism, unspecified Status: Chronic (3) COPD (chronic obstructive pulmonary disease) Code(s): J44.9 - Chronic obstructive pulmonary disease, unspecified Status: Chronic (4) History of OCD (obsessive compulsive disorder) Code(s): Z86.59 - Personal history of other mental and behavioral disorders Status: Chronic (5) Depression Code(s): F32.9 - Major depressive disorder, single episode, unspecified Status : Chronic <Mikal Martinez III - 05/18/18 09:01> - Assessment and Plan 73 YO female followed by Dr Soria with PMHx hypothyroid, COPD with home 2L O2 requirement, OCD, anxiety and depression, and prediabetes who presents with nausea, left flank pain and 1cm left sided kidney stone and moderate left sided hydronephrosis on CT abdomen/pelvis. There is no CVA tenderness, but there is fever 100.3 this morning. Urology has been consulted. Impression: -CBC wnl except thrombocytopenia 107 -CMP wnl except BUN 21 -Lactate 0.9 -Calcium 8.8 -Troponin pending -CT abdomen/pelvis as above with 1cm left ureteropelvic junction calculus w/ moderate left hydronephrosis -Blood cx pending -Rocephin 1g IV once in ED -1L Bolus NS IVF x2 in ED -INR pending PLAN: 1. Left side nephrolithiasis -Urology consult--appreciate recs--IR consulted -UA pending -Morphine 4mg IV once in ED -Tylenol 650 mg q4h pain 1-3/temp >100.4 -Tramadol 50 mg q6h PRN pain 4-10 -Zofran 4 mg q6h PRN -2 Boluses IVF in ED, then NS IVF at 100 ml/hr -NPO for procedure -I/Os 2. COPD -Duonebs q2h PRN for SOB -Ventolin inhaler 2 puffs BID -Pt home Respimat -Supplemental O2, titrate 1-4L NC -Continuous pulse oximetry 3. Anxiety -Continue home xanax 0.25 mg BID 4. Hypothyroidism -Continue home levothyroxine 50 mcg daily 5. Thrombocytopenia -CBC with PLTs 107; Meditech indicates baseline 162-180 -Monitor with daily CBC -Consider FFP transfusion if Plts <50 6. Prediabetes -Accucheks daily -Atorvastatin 80 mg daily -ASA 81 mg daily 7. FEN/GI/PPx Fluids: as above IVF Electrolytes: wnl; will monitor with daily BMP and replete Nutrition: NPO for procedure GI: none indicated PPx: SCDs PT after procedure CM consult Dispo: once cleared by Urology and medically stable Pt DW Corbin Zapata and Rodney <Mikal Martinez III - 05/18/18 09:01> - Attending Attestation Patient was discussed and chart was reviewed. Agree with inpatient status and with the assessment and plan. <Argentina High - 05/18/18 15:59>
[2018-05-18] MEDS ORDERED: Acetaminophen 325 MG Tablet PO PRN (07:35)
[2018-05-18] MEDS ORDERED: Sodium Chloride 0.9% 2 ML Flush PRN IV.FLUSH (07:53)
[2018-05-18] MEDS ORDERED: STIOLTO RESPIMAT INH SCH (09:00)
[2018-05-18] MEDS: Levothyroxine 50 MCG Tablet PO SCH (09:19)
[2018-05-18 09:42] LABS: Activated Partial Thrombo Time 22.9 sec (24.3-30.1); INR 1.1 Ratio; Prothrombin Time 11.1 sec (9.8-11.6)
[2018-05-18] MEDS ORDERED: fentaNYL Citrate Inj 250 MCG/5 ML Ampul ONE (10:54)
[2018-05-18] MEDS ORDERED: Levofloxacin 500 mg Premix Inj 500 MG/100 ML PIGGYBACK IV.SIG ONE (10:54)
[2018-05-18] MEDS ORDERED: Iohexol 350 MG/ML 50 ML Vial (for Rad Diag) IVCONTRAST ONE (12:15)
[2018-05-18] MEDS: ALPRAZolam 0.25 MG Tablet PO PRN (12:43)
--- NOTE | 2018-05-18 12:44 | P.RAD ---
Post Procedure Progress Note - Pre Procedure Diagnosis (1) Hydronephrosis of left kidney (2) Left nephrolithiasis - Post Procedure Diagnosis (1) Left nephrolithiasis (2) Hydronephrosis of left kidney - Procedure Information Procedure Date: 05/18/18 Supervising Radiologist: Sathish Black MD Estimated blood loss (mL): 4 Anesthesia: Local, Analgesia, Conscious Sedation - Plan of Activity Patient to Unit: ROPU Patient Condition: Good See PACS Report for procedural detail/treatment. Drainage Procedure Fluoroscopy left Ureteral Stent Placement Cymro Tube Size: 8 Drainage: [place] drainage Fluid Description: Cloudy, Other (brown) Ultrasound left Nephrostomy Cymro Tube Size: 8 Drainage: [place] drainage Fluid Description: Cloudy, Other (brown) Findings: 26 cm PCNU
[2018-05-18 12:59] LABS: Bacteria,Urine Many /hpf; Bilirubin,Urine Negative (Negative); Clarity,Urine Cloudy (Clear); Color,Urine Amber (Yellw/Straw); Glucose,Urine (UA) Negative (Negative); Leukocyte Esterase,Urine Small (Negative); Nitrite,Urine Negative (Negative); Specific Gravity,Urine 1.024 (1.002-1.035)
--- NOTE | 2018-05-18 13:47 | IR ---
EXAM DATE: 05/18/2018 12:00 AM EDT AGE/SEX: 73 years / Female INDICATIONS: Patient with history of kidney stones. Left flank pain. Known left kidney stone. CLINICAL DATA: This is the patient's initial encounter. Patient reports that signs and symptoms have been present for 4 - 6 days and indicates a pain score of 6/10. MEDICAL/SURGICAL HISTORY: Chronic obstructive pulmonary disease. Hypothyroidism. Renal calcul i. depression, smoker None. [place] [facility] [place]/O CONTRAST, 05/18/2018. . FLUORO TIME (min): 5.56 IMAGE SERIES: 2 SEDATION TIME (min): 30 CONTRAST (cc): 15 cc Omnipaque (iohexol) 350 MEDICATION(S): 3 mg midazolam (Versed) IV 150 mcg fentanyl (Sublimaze) IV DEVICE(S): 8 Sami nephroureteral stent 8 X 26 CM . . PROCEDURE : 1. Ultrasound-guided puncture of the kidney. 2. Antegrade percutaneous pyelogram. 3. Percutaneous nephroureteral stent placement. 4. Conscious sedation with continuous EKG and oximetry monitoring. The risks, benefits and alternatives to the procedure were explained and verbal and written consent w as obtained. The site was prepped in sterile fashion. Full sterile technique was used, including ca p, mask, sterile gloves and gown and a large sterile sheet. Hand hygiene and 2% chlorhexidine and/or betadine/alcohol prep was utilized per protocol for cutaneous antisepsis. Sterile gel and sterile p robe cover were utilized for ultrasound guidance. The skin and subcutaneous tissues were infiltrated with local anesthetic solution. With ultrasound and fluoroscopic guidance the selected kidney was punctured and a percutaneous antegr arlyn pyelogram was performed demonstrating a dilated collecting system. Serial dilatation was perform ed and the prescribed nephroureteral stent was placed with the proximal portion within the renal pelv is and the distal extent in the urinary bladder. Injection of positive contrast demonstrates good po sition of the catheter. Conscious sedation was performed with the prescribed dosages and duration as above in the presence of an independent trained radiology nurse to assist in the monitoring of the patient. EKG and oximetry remained stable throughout the procedure. The patient tolerated the procedure well and there were n o complications. The patient was sent to post anesthesia recovery in stable condition. CONCLUSION: 1. Uncomplicated nephroureteral stent placement as above. Electronically signed by: Sathish Black MD 05/18/2018 1:46 PM EDT
[2018-05-18] MEDS: Senna/Docusate Sodium 8.6/50 MG Tablet PO SCH ×2 (16:39→20:23)
[2018-05-18] MEDS: Sodium Chloride 0.9% 2 ML Flush BID IV.FLUSH SCH ×2 (16:39→20:23)
[2018-05-18] MEDS: Sod Chloride 0.9% Inj 1,000 ML IV.CONT SCH ×2 (16:40→17:50)
[2018-05-19] MEDS: ALPRAZolam 0.25 MG Tablet PO PRN (00:15)
[2018-05-19] MEDS ORDERED: Naloxone Inj 0.4 MG/ML Vial IV.PUSH PRN (02:29)
[2018-05-19] MEDS: Sod Chloride 0.9% Inj 1,000 ML IV.CONT SCH ×3 (03:03→22:37)
[2018-05-19 07:07] LABS: Calcium 8.8 mg/dL (8.5-10.1); Carbon Dioxide 32.2 meq/L (21.0-32.0); Potassium 3.9 meq/L (3.5-5.1)
[2018-05-19] MEDS: Senna/Docusate Sodium 8.6/50 MG Tablet PO SCH ×2 (08:13→20:42)
[2018-05-19] MEDS: Sodium Chloride 0.9% 2 ML Flush BID IV.FLUSH SCH ×2 (08:13→20:42)
--- NOTE | 2018-05-19 13:14 | P.DIET ---
Nutritional Evaluation Type of nutrition evaluation: initial Nutrition screening: Weight Loss > 10 lbs Subjective Subjective Comments: Poor appetite reported. Pt ate 75% of her breakfast. Objective - Diagnosis Ureteral Calculus, Pyelonephritis - Objective % IBW: 116 (IBW = 125#) Body Weight Used for Calculations: Actual (65.8 kg) Energy Needs - Lower Range (kCal/kg): 25 Energy Needs - Upper Range (kCal/kg): 30 Lower Limit kCal/kg (kCals): 1,645 Upper Limit kCal/kg (kCals): 1,974 Lower Limit Protein Factor (Grams per Kg): 1.0 Upper Limit Protein Factor (Grams per Kg): 1.5 Lower Protein Needs (Protein): 66 Upper Protein Needs (Protein): 99 Fluid Factor (ml/kg): 30 Estimated Fluid Needs (ml): 1,974 Dietitian Reviewed in Medical Record: Current diet, Curent medications, Intake & Output, Labs, Medical history Diet Order: Regular Objective Comments: GLU 124 Assessment Assessment: Pt is at high nutrition risk 2' to unintentional weight loss. She presents with a BMI of 24.1. Will send Ensure Enlive for added nutrition; each 8 oz serving provides 350 kcals and [address] following. Recommendations: 1. Continue regular diet 2. Ensure Enlive bid 3. Monitor glucose Dietitian to Monitor: Lab values, Supplement acceptance, Intake & Output, Diet tolerance, Weight change, PO Intake, Medical course
--- NOTE | 2018-05-19 13:39 | P.PNURO ---
Subjective Patient symptoms today: Pt seen and examined. States that she feels "lousey" Objective Vital Signs: Vital Signs 05/18/18 16:00 05/18/18 18:58 05/18/18 20:00 Temperature 97.9 F 97.8 F Pulse Rate 76 70 Respiratory Rate 17 17 Blood Pressure 154/67 H 101/49 L Pulse Oximetry 94 L 94 L 92 L 05/18/18 20:21 05/19/18 00:00 05/19/18 04:00 Temperature 97.4 F L 99.2 F Pulse Rate 78 70 Respiratory Rate 17 17 Blood Pressure 122/74 100/52 L Pulse Oximetry 92 L 92 L 95 05/19/18 07:53 05/19/18 08:00 05/19/18 08:43 Temperature 98.8 F Pulse Rate 61 Respiratory Rate 17 18 18 Blood Pressure 94/51 L Pulse Oximetry 92 L 05/19/18 12:00 Temperature 98.5 F Pulse Rate 67 Respiratory Rate 16 Blood Pressure 116/53 L Pulse Oximetry 90 L Intake & Output 05/18/18 05/19/18 05/19/18 18:59 06:59 18:59 Intake Total 1900 / 1900 100 / 100 Output Total 600 / 600 730 / 730 150 / 150 Balance 1300 / 1300 -730 / -730 -50 / -50 Weight 65.771 kg Intake: IV 1200 / 1200 100 / 100 Levaquin 500 mg Premix Inj 500 100 / 100 mg In 100 ml @ 0 mls/hr IV.SIG .STK-MED ONE Rx#:[id number] NS Inj 1,000 ML @ Wide Open IV. 1000 / 1000 SIG BOLUS ONE Rx#:[id number] Rocephin Inj 1,000 MG In NS Inj 100 / 100 100 / 100 100 ML @ 200 mls/hr IV.SIG Q24H [place] Rx#:[id number] Oral 700 / 700 Output: Wound Drainage 600 / 600 730 / 730 150 / 150 # 1 Left Posterior Pigtail 600 / 600 730 / 730 150 / 150 Other: # Voids 1 Date of Last Bowel Movement 05/16/18 05/16/18 # Bowel Movements 0 Weight On Admission 65.771 kg Result Diagrams: 05/18/18 05:08 05/19/18 06:25 Imaging: Impressions Drainage Catheter Insertion 05/18/18 00:00 CONCLUSION: 1. Uncomplicated nephroureteral stent placement as above. Medications and IVs: Active Medications Generic Name Dose Route Start Last Admin Trade Name Freq PRN Reason Stop Dose Admin Acetaminophen 650 mg 05/18/18 07:35 05/18/18 14:09 Tylenol PO 650 mg Q4H PRN Administration pain1-3 and/or temp >100.4 Hydrocodone Bitart/Acetaminophen 1 tab 05/19/18 02:29 05/19/18 08:13 [place] 5/325 PO 1 tab Q4H PRN Administration PAIN SCALE 6 TO 10 Albuterol 1 ampul 05/18/18 08:45 Duoneb Neb (Prn) NEB Q2HR NEB PRN DYSPNEA Albuterol 2 puff 05/18/18 10:00 Ventolin Hfa Inh INH Q4H PRN RESPIRATORY DISTRESS Alprazolam 0.25 mg 05/18/18 07:06 05/19/18 00:15 Xanax PO 0.25 mg BID PRN Administration Anxiety Aspirin 81 mg 05/18/18 09:00 05/19/18 08:13 Ecotrin PO 81 mg DAILY [place] Administration Atorvastatin Calcium 80 mg 05/18/18 09:00 05/19/18 08:13 Lipitor PO 80 mg DAILY [place] Administration Sodium Chloride 1,000 mls @ 100 mls/hr 05/18/18 07:30 05/19/18 03:03 Ns Inj IV.CONT Not Given .Q10H [place] Ceftriaxone Sodium 1,000 mg/ 100 mls @ 200 mls/hr 05/19/18 10:00 05/19/18 10: 06 Sodium Chloride IV.SIG Infused Q24H [place] Infusion Levothyroxine Sodium 50 mcg 05/18/18 07:30 05/18/18 09:19 Synthroid PO 50 mcg Q2D@0600 [place] Administration Naloxone HCl 0.4 mg 05/19/18 02:29 Narcan Inj IV.PUSH UNSCH PRN SEE LABEL COMMENTS Ondansetron HCl 4 mg 05/18/18 07:06 Zofran Odt PO Q6H PRN nausea and vomiting Patient Own 0 each 05/18/18 09:00 Medication[Stiolto INH Respimat] DAILY [place] Senna/Docusate Sodium 1 tab 05/18/18 09:00 05/19/18 08:13 Xochitl-Colace PO 1 tab BID [place] Administration Sodium Chloride 2 ml 05/18/18 09:00 05/19/18 08:13 Ns Flush IV.FLUSH 2 ml BID [place] Administration Sodium Chloride 2 ml 05/18/18 07:53 Ns Flush IV.FLUSH PRN PRN FLUSH AFTER USING IV ACCESS Tramadol HCl 50 mg 05/18/18 07:06 05/19/18 00:14 Ultram PO 50 mg Q6H PRN Administration PAIN 1-10 Objective Remarks: 05/19 ABD:soft,nt,nd Left PCNT: caren urine Assessment and Plan - Plan 73 y.o female s/p Left PCNT with stent Follow culture results Continue IV ABx Will need ESWL as outpt.
--- NOTE | 2018-05-19 15:38 | P.PNADD ---
Addendum to Inpatient Note Reason for Addendum: Additional Documentation Additional information: Please see resident H&P from 05/18/18 for complete documentation of the history and admission information. Patient was seen this am and was overall doing well. She did have some pain during the night and took some pain medication. She states this has made her a little groggy today. She is tolerating a diet, she is moving around in her bed. SHe would like to go home. Vital Signs Temp Pulse Resp BP Pulse Ox 05/19/18 14:57 18 05/19/18 12:00 98.5 F 67 16 116/53 L 90 L 05/19/18 08:43 18 05/19/18 08:00 98.8 F 61 18 94/51 L 92 L 05/19/18 07:53 17 05/19/18 04:00 99.2 F 70 17 100/52 L 95 05/19/18 00:00 97.4 F L 78 17 122/74 92 L 05/18/18 20:21 92 L 05/18/18 20:00 97.8 F 70 17 101/49 L 92 L 05/18/18 18:58 94 L 05/18/18 16:00 97.9 F 76 17 154/67 H 94 L Intake and Output 05/19/18 05/19/18 05/19/18 06:59 14:59 22:59 Intake Total 100 / 100 Output Total 550 / 550 350 / 350 Balance -550 / -550 -250 / -250 Intake: IV 100 / 100 Rocephin Inj 1,000 MG In NS Inj 100 / 100 100 ML @ 200 mls/hr IV.SIG Q24H [place] Rx#:[id number] Output: Wound Drainage 550 / 550 350 / 350 # 1 Left Posterior Pigtail 550 / 550 350 / 350 Other: Date of Last Bowel Movement 05/16/18 Abnormal lab results 05/18/18 05/19/18 05/19/18 Range/Units 20:39 06:25 08:12 Carbon Dioxide 32.2 H (21.0-32.0) meq/L Estimated GFR 72 L (>89) mL/min POC Glucose 168 H 143 H (68-110) mg/dl Random Glucose 124 H (74-106) mg/dL 05/19/18 Range/Units 11:41 Carbon Dioxide (21.0-32.0) meq/L Estimated GFR (>89) mL/min POC Glucose 136 H (68-110) mg/dl Random Glucose (74-106) mg/dL GENERAL: SKIN: Warm and dry. HEAD: Normocephalic. EYES: No scleral icterus. No injection or drainage. NECK: Supple, trachea midline. No JVD or lymphadenopathy. CARDIOVASCULAR: Regular rate and rhythm without murmurs, gallops, or rubs. RESPIRATORY: Breath sounds equal bilaterally. No accessory muscle use. GASTROINTESTINAL: Abdomen soft, non-tender, nondistended. MUSCULOSKELETAL: No cyanosis, or edema. BACK: Nontender without obvious deformity. No CVA tenderness. Perc. NT left side A/P 1. Renal stone -- s/p PCNT with stent, overall not feeling great. Cultures still pending. Will need ESWL eventually. Continue to follow cultures to guide PO antibiotics. Discharge timing and plan will need to be determined with urology. 2. COPD on 2-3LNC, patient also reports h/o VICKI and had CPAP in the past but she refuses to use this now. At this time she is stable from a pulmonary standpoint so will continue the NC oxygen only. If she has any decline -- consider restarting her CPAP at night for resp. support. Her other medical issues appear to be stable. Continue previous plan and current medications. Patient was seen and assessed with the resident team -_ , Dr. Minor, Dr. Jauregui
[2018-05-20] MEDS: ALPRAZolam 0.25 MG Tablet PO PRN ×2 (00:56→15:28)
[2018-05-20] MEDS: Levothyroxine 50 MCG Tablet PO SCH (05:25)
[2018-05-20 06:01] LABS: Baso % (Auto) 0.4 % (0.0-2.0); Eos # (Auto) 0.1 th/mm3 (0.0-0.4); Hematocrit 36.6 % (35.0-46.0); Hemoglobin 12.4 gm/dL (11.6-15.3); Lymph # (Auto) 0.6 th/mm3 (1.0-4.8); Lymph % (Auto) 7.8 % (9.0-44.0); Mean Corpuscular Hemoglobin 31.4 pg (27.0-34.0); Mean Corpuscular Volume 92.4 fL (80.0-100.0); Mean Platelet Volume 8.4 fL (7.0-11.0); Mono # (Auto) 0.8 th/mm3 (0.0-0.9); Mono % (Auto) 11.3 % (0.0-8.0); Neut # (Auto) 5.9 th/mm3 (1.8-7.7); Neut % (Auto) 79.5 % (16.0-70.0); Platelet Count 121 th/mm3 (150-450); Red Blood Count 3.96 mil/mm3 (4.00-5.30); Red Cell Distribution Width 13.1 % (11.6-17.2); White Blood Count 7.5 th/mm3 (4.0-11.0)
[2018-05-20 06:15] LABS: Calcium 9.1 mg/dL (8.5-10.1); Carbon Dioxide 37.4 meq/L (21.0-32.0); Potassium 3.3 meq/L (3.5-5.1)
[2018-05-20] MEDS: Sodium Chloride 0.9% 2 ML Flush BID IV.FLUSH SCH (08:20)
[2018-05-20] MEDS: Senna/Docusate Sodium 8.6/50 MG Tablet PO SCH (08:20)
--- NOTE | 2018-05-20 08:58 | P.PNURO ---
Subjective Patient symptoms today: Pt seen and examined. Some pain from NT. Objective Vital Signs: Vital Signs 05/19/18 12:00 05/19/18 14:57 05/19/18 16:00 Temperature 98.5 F 99.4 F Pulse Rate 67 70 Respiratory Rate 16 18 20 Blood Pressure 116/53 L 117/63 Pulse Oximetry 90 L 97 05/19/18 20:00 05/20/18 00:00 05/20/18 07:45 Temperature 98.8 F 98.2 F Pulse Rate 63 77 Respiratory Rate 16 16 16 Blood Pressure 112/55 L 121/70 Pulse Oximetry 91 L 90 L 05/20/18 08:00 Temperature 98.0 F Pulse Rate 69 Respiratory Rate 16 Blood Pressure 138/64 Pulse Oximetry 90 L Intake & Output 05/19/18 05/20/18 05/20/18 18:59 06:59 18:59 Intake Total 340 / 340 1550 / 1550 Output Total 350 / 350 800 / 800 Balance -10 / -10 750 / 750 Intake: IV 100 / 100 1000 / 1000 Rocephin Inj 1,000 MG In NS Inj 100 / 100 100 ML @ 200 mls/hr IV.SIG Q24H [place] Rx#:[id number] Oral 240 / 240 550 / 550 Output: Wound Drainage 350 / 350 800 / 800 # 1 Left Posterior Pigtail 350 / 350 800 / 800 Other: Date of Last Bowel Movement 05/16/18 05/16/18 05/16/18 Result Diagrams: 05/20/18 05:20 05/20/18 05:20 Medications and IVs: Active Medications Generic Name Dose Route Start Last Admin Trade Name Freq PRN Reason Stop Dose Admin Acetaminophen 650 mg 05/18/18 07:35 05/18/18 14:09 Tylenol PO 650 mg Q4H PRN Administration pain1-3 and/or temp >100.4 Hydrocodone Bitart/Acetaminophen 1 tab 05/19/18 02:29 05/20/18 08:20 [place] 5/325 PO 1 tab Q4H PRN Administration PAIN SCALE 6 TO 10 Albuterol 1 ampul 05/18/18 08:45 Duoneb Neb (Prn) NEB Q2HR NEB PRN DYSPNEA Albuterol 2 puff 05/18/18 10:00 Ventolin Hfa Inh INH Q4H PRN RESPIRATORY DISTRESS Alprazolam 0.25 mg 05/18/18 07:06 05/20/18 00:56 Xanax PO 0.25 mg BID PRN Administration Anxiety Aspirin 81 mg 05/18/18 09:00 05/20/18 08:20 Ecotrin PO 81 mg DAILY [place] Administration Atorvastatin Calcium 80 mg 05/18/18 09:00 05/20/18 08:20 Lipitor PO 80 mg DAILY [place] Administration Calcium Carbonate 500 mg 05/19/18 16:00 05/20/18 08:20 Tums Chew CHEW 500 mg Q2H PRN Administration HEARTBURN Sodium Chloride 1,000 mls @ 100 mls/hr 05/18/18 07:30 05/19/18 22:37 Ns Inj IV.CONT Not Given .Q10H [place] Ceftriaxone Sodium 1,000 mg/ 100 mls @ 200 mls/hr 05/19/18 10:00 05/19/18 10: 06 Sodium Chloride IV.SIG Infused Q24H [place] Infusion Levothyroxine Sodium 50 mcg 05/18/18 07:30 05/20/18 05:25 Synthroid PO 50 mcg Q2D@0600 [place] Administration Naloxone HCl 0.4 mg 05/19/18 02:29 Narcan Inj IV.PUSH UNSCH PRN SEE LABEL COMMENTS Ondansetron HCl 4 mg 05/18/18 07:06 Zofran Odt PO Q6H PRN nausea and vomiting Patient Own 0 each 05/18/18 09:00 Medication[Stiolto INH Respimat] DAILY [place] Senna/Docusate Sodium 1 tab 05/18/18 09:00 05/20/18 08:20 Xochitl-Colace PO 1 tab BID [place] Administration Sodium Chloride 2 ml 05/18/18 09:00 05/20/18 08:20 Ns Flush IV.FLUSH 2 ml BID [place] Administration Sodium Chloride 2 ml 05/18/18 07:53 Ns Flush IV.FLUSH PRN PRN FLUSH AFTER USING IV ACCESS Tramadol HCl 50 mg 05/18/18 07:06 05/19/18 00:14 Ultram PO 50 mg Q6H PRN Administration PAIN 1-10 Objective Remarks: 05/19 ABD:soft,nt,nd Left PCNT: caren urine 05/20 ABD:soft,nt,nd Left PCNT: caren urine Assessment and Plan - Plan 73 y.o female s/p Left PCNT with stent Follow culture results Continue IV ABx Will need ESWL as outpt. 05/20 73 y.o female s/p Left PCNT with stent Follow culture results Continue IV ABx Will need ESWL as outpt.
[2018-05-20] MEDS: Sod Chloride 0.9% Inj 1,000 ML IV.CONT SCH (09:29)
--- NOTE | 2018-05-20 12:43 | P.PN ---
Subjective Interval history: Pt seen and examined this morning. She wants to go home or go down to "smoke a cigarette and come right back". We counseled pt extensively together with Dr. Woodall, regarding importance of getting IV antibiotics until cultures results are available. She complains of feeling loopy a little bit, but seems more alert than yesterday. She is eating and drinking ok, complains of some constipation. She denies any N/V. No fevers or chills. No chest pain, or abdominal pain. She still complains of pain on her R upper back where the urostomy tube is placed, and the site of her kidney stone. She is complaining of new onset "UTI feelings". Discussed we are treating her infection with IV antibiotics. Physical Exam Vital signs: Vital Signs 05/19/18 14:57 05/19/18 16:00 05/19/18 20:00 Temperature 99.4 F 98.8 F Pulse Rate 70 63 Respiratory Rate 18 20 16 Blood Pressure 117/63 112/55 L Pulse Oximetry 97 91 L 05/20/18 00:00 05/20/18 07:45 05/20/18 08:00 Temperature 98.2 F 98.0 F Pulse Rate 77 69 Respiratory Rate 16 16 16 Blood Pressure 121/70 138/64 Pulse Oximetry 90 L 90 L 05/20/18 08:50 Temperature Pulse Rate Respiratory Rate 18 Blood Pressure Pulse Oximetry Intake & Output 05/19/18 05/20/18 05/20/18 18:59 06:59 18:59 Intake Total 340 / 340 1550 / 1550 100 / 100 Output Total 350 / 350 800 / 800 650 / 650 Balance -10 / -10 750 / 750 -550 / -550 Intake: IV 100 / 100 1000 / 1000 100 / 100 Rocephin Inj 1,000 MG In NS Inj 100 / 100 100 / 100 100 ML @ 200 mls/hr IV.SIG Q24H [place] Rx#:[id number] Oral 240 / 240 550 / 550 Output: Wound Drainage 350 / 350 800 / 800 650 / 650 # 1 Left Posterior Pigtail 350 / 350 800 / 800 650 / 650 Other: Date of Last Bowel Movement 05/16/18 05/16/18 05/16/18 Narrative: GENERAL: in NAD, visible in pain when moving in bed. Urostomy bag draining caren / red fluid. SKIN: Warm and dry. HEAD: Normocephalic and atraumatic. EYES: No scleral icterus. No injection or drainage. ENT: No nasal drainage noted. Mucous membranes pink. Airway patent. CARDIOVASCULAR: Regular rate and rhythm without murmurs, gallops, or rubs. RESPIRATORY: Decreased breath sounds equal bilaterally. No accessory muscle use. ABDOMEN/GI: Abdomen soft, non-tender, bowel sounds present, no rebound, no guarding. Urostomy bag present, no signs of leakage around insertion. EXTREMITIES: No cyanosis or edema. NEUROLOGICAL: Awake and alert. Motor and sensory grossly within normal limits. Normal speech. Results - Labs CBC & Chem 7: 05/20/18 05:20 05/20/18 05:20 Laboratory Results - last 24 hr 05/19/18 05/19/18 05/20/18 17:16 20:41 05:20 WBC 7.5 RBC 3.96 L Hgb 12.4 Hct 36.6 MCV 92.4 MCH 31.4 MCHC 34.0 RDW 13.1 Plt Count 121 L MPV 8.4 Neut % (Auto) 79.5 H Lymph % (Auto) 7.8 L [place] % (Auto) 11.3 H Eos % (Auto) 1.0 Baso % (Auto) 0.4 Neut # (Auto) 5.9 Lymph # (Auto) 0.6 L [place] # (Auto) 0.8 Eos # (Auto) 0.1 Baso # (Auto) 0.0 WBC Differential . Differential Comment Auto diff final Sodium Potassium Chloride Carbon Dioxide Anion Gap BUN Creatinine Estimated GFR POC Glucose 216 H 228 H Random Glucose Calcium 05/20/18 05:20 WBC RBC Hgb Hct MCV MCH MCHC RDW Plt Count MPV Neut % (Auto) Lymph % (Auto) [place] % (Auto) Eos % (Auto) Baso % (Auto) Neut # (Auto) Lymph # (Auto) [place] # (Auto) Eos # (Auto) Baso # (Auto) WBC Differential Differential Comment Sodium 138 Potassium 3.3 L Chloride 96 L Carbon Dioxide 37.4 H Anion Gap 5 BUN 14 Creatinine 0.69 Estimated GFR 83 L POC Glucose Random Glucose 132 H Calcium 9.1 Microbiology 05/18/18 11:50 Clean Catch Urine Urine Culture - Final Viridans streptococcus grp 05/18/18 05:08 Blood - Peripheral Aerobic Blood Culture - Preliminary No growth in 2 days 05/18/18 05:08 Blood - Peripheral Anaerobic Blood Culture - Preliminary No growth in 2 days 05/18/18 05:08 Blood - Peripheral Aerobic Blood Culture - Preliminary No growth in 2 days 05/18/18 05:08 Blood - Peripheral Anaerobic Blood Culture - Preliminary No growth in 2 days Assessment and Plan - Assessment (1) Left nephrolithiasis Code(s): N20.0 - Calculus of kidney Status: Acute (2) Hypothyroidism Code(s): E03.9 - Hypothyroidism, unspecified Status: Chronic (3) COPD (chronic obstructive pulmonary disease) Code(s): J44.9 - Chronic obstructive pulmonary disease, unspecified Status: Chronic (4) History of OCD (obsessive compulsive disorder) Code(s): Z86.59 - Personal history of other mental and behavioral disorders Status: Chronic (5) Depression Code(s): F32.9 - Major depressive disorder, single episode, unspecified Status : Chronic (6) Anxiety Code(s): F41.9 - Anxiety disorder, unspecified Status: Acute (7) High cholesterol Code(s): E78.00 - Pure hypercholesterolemia, unspecified Status: Acute (8) Prediabetes Code(s): R73.03 - Prediabetes Status: Acute - Plan 73 yr old female w/ COPD, hypothyroidism, depression and anxiety, OCD, and tobacco user, presenting with L kidney stone and pain since last weekend. CT showed a 1 cm left ureteropelvic junction calculus, moderate left hydronephrosis and perinephric stranding. S/P day 3 ureteral stent placement and left nephrostomy by IR. Blood Cultures negative to date. Urine Cultures growing Streptococcus Viridans. Urology following and recommending lithotripsy as an outpatient. Pt is tolerating diet and fluids, and pain is controlled with Tramadol and [place]. PT has recommended SNIF placement, patient refused but agreed to home health. Pt will be discharged home with capped nephrostomy bag and oral amoxicillin for 10 days. Plan: - Discharge home with home health - Follow up with Urologist Dr Woodall and PCP Dr. Soria next week - Amoxicillin 500mg three times a day for 10 days. - [place] 5/325mg q 6 hrs PRN. Pt meets acute exception criteria due to kidney stone still present for likely another week. [employer] queried and no concerns. - Pt should not dive while on pain medications. Explained extensively this and CM will get her a ride home today. - Extensive discharge instructions given regarding antibiotic and pain control, as well as follow up.\\ Pt seen with Dr. Minor and discussed with Dr. High. - Attending Attestation The exam, history, and the medical decision-making described in the above note were completed with the assistance of the resident physician. I reviewed and agree with the findings presented. I attest that I had a [id number] encounter with the patient on the same day, and personally performed and documented my assessment and findings in the medical record. (3) COPD (chronic obstructive pulmonary disease) Qualifiers: COPD type: unspecified COPD Qualified Code(s): J44.9 - Chronic obstructive pulmonary disease, unspecified
--- NOTE | 2018-05-20 15:16 | P.DCO ---
- Home Health Nursing Order: Medical education, Signs/symptoms of disease process, Wound care and dressing changes, Nursing assessment with vital signs Instructions: Urostomy bag. Please assist with making sure there is no drainage/ leakage of fluids in bag. If leakage present, or/ and signs of infection, please uncap the tube and add clear bag (provided to pt at discharge). - Case Management Consult Yes - Certification I have seen patient Alivia Jones on 05/20/18. My clinical findings support the need for the requested home health care services because: Limited mobility due to disease progression, Medication compliance is questionable, Infection with risk of complications I certify that my clinical findings support that this patient is homebound because: Need for psychosocial assistance
--- NOTE | 2018-05-20 18:01 | P.PNADD ---
Addendum to Inpatient Note Reason for Addendum: Additional Documentation Additional information: Nurse called at 17:30 PM stating that patient is complaining of chest pain just prior to discharge, which she stated was likely related to anxiety and OCD. Patient seen and examined by resident team at 17:45pm. Patient complaining of dull chest pain that started just prior to discharge. When asked to identify the location of the pain, patient indicates that her pain is located in lower ribs, epigastric abdominal and mid-back pain. Patient denies numbness or tingling in upper extremities, sweating, or headache. Patient states that she feels mildly short of breath, but notes that this is normal for her due to history of COPD. Patient states that her depression, anxiety and OCD have been getting worse while in the hospital. Patient notes that she has had episodes of pain like this in the past and states that it feels similar to her "COPD pains". O: VS: HR WNL Patient sitting up in chair in no acute respiratory distress. CARDIO: RRR, no murmurs. Radial pulses 2+ LUNGS: CTAB. No wheeze, crackles or rhonchi noted. ABDOMEN: Soft. Non-tender. Non-distended. Bowel sounds in all four quadrants. A/P: 1. Epigastric abdominal pain and lower rib pain. Patient's VS within normal limits. Patient resting, NAD. -Patient given Ativan 0.25mg around 16:30PM today and placed on 1L NC. -STAT EKG ordered and reviewed. EKG showed: Sinus rhythm. HR 70. No ST elevations or depression. Patient stable for discharge to home. Transport contacted by nursing staff.
--- NOTE | 2018-05-20 19:40 | ECG ---
Date Performed: 05/20/2018 Time Performed: 18:13:10 PTAGE: 73 years EKG: Sinus rhythm NONSPECIFIC T-WAVE ABNORMALITY BORDERLINE ECG No significant change from prior electrocardiogram. PREVIOUS TRACING : 05/15/2018 10.17 DOCTOR: Bandar Barrientos Interpretating Date/Time 05/20/2018 19:38:50
[2018-05-20 20:48] VITALS: BP 119/58; PULSE 63; RESP 18; TEMP 98.4; O2SAT 92
== END 2018-05-20 20:59 | disposition home health service (06) ==
LOC: NEPC 04:19 → NEDA 07:19 → N06 13:28
PROVIDERS: ADMIT Family Medicine; ATTEND Family Medicine

== ENCOUNTER 2018-05-21 17:43 | Inpatient (IN) ==
--- NOTE | 2018-05-21 19:39 | ED ---
HPI General Chief complaint: Urogenital-Female Stated complaint: medical Time Seen by Provider: 05/21/18 18:19 History of Present Illness HPI narrative: 73-year-old female with recent hospitalization for left proximal ureteral stone with nephrostomy tube placement, discharged from the hospital yesterday according to the patient on her own accord, back for evaluation of hematuria and inability to fill the antibiotics that she was provided to her. According to the discharge note, it was recommended by PT that the patient be discharged to a SNF, however the patient preferred to be discharged home with home health. She tells me she does not know how to care for her nephrostomy and is having difficulty finding anyone to help her with this. She has no acute physical complaints. Related Data Home Medications Medication Instructions Recorded Confirmed albuterol sulfate 2 puff INHALATION Q4-6H PRN 02/26/18 05/21/18 albuterol sulfate [Ventolin HFA] 2 puff INHALATION Q4H PRN 02/26/18 05/21/18 aspirin [Aspir-81] 81 mg PO DAILY 02/26/18 05/21/18 fluvoxamine 100 mg PO DAILY 02/26/18 05/21/18 levothyroxine 50 mcg PO EVERY OTHER DAY 02/26/18 05/21/18 rosuvastatin 40 mg PO DAILY 02/26/18 05/21/18 alprazolam 0.25 mg PO BID PRN 05/15/18 05/21/18 tiotropium-olodaterol [Stiolto 2 puff INHALATION DAILY 05/15/18 05/21/18 Respimat] Previous Rx's Medication Instructions Recorded ondansetron [Zofran ODT] 4 mg PO Q6H PRN #7 tab 05/15/18 tramadol 50 mg PO Q6-8H PRN #7 tab 05/15/18 acetaminophen 650 mg PO Q4H PRN tab 05/20/18 amoxicillin 500 mg PO TID 10 Days #120 tab 05/20/18 hydrocodone-acetaminophen [Wayan] 1 tab PO Q6H PRN 7 Days #28 tab 05/20/18 sennosides-docusate sodium [Senna 1 tab PO BID tab 05/20/18 Plus] Allergies Allergy/AdvReac Type Severity Reaction Status Date / Time No Known Allergies Allergy Verified 05/21/18 04:25 Review of Systems ROS: all other systems reviewed are negative [facility] Social History Social History Substance History: No History of Abuse Second Hand Smoke Exposure: No Smoking Status: Former smoker Tobacco Type: Cigarettes Packs Per Day: 1 Cigarettes Per Day: 20.0 How Often Do You Have a Drink Containing Alcohol: Never Recent Travel in [facility] within the Last 8 Weeks: No Recent Out of Country Travel within the Last 8 Weeks: No Immunization History Tetanus Immunization: Unsure Hx Influenza Vaccine This Season: No Exam Narrative Exam Narrative: GENERAL: Well-developed, well-nourished, awake, alert, no apparent distress. SKIN: Focused skin assessment warm/dry. HEAD: Atraumatic. Normocephalic. EYES: Pupils equal and round. No scleral icterus. No injection or drainage. ENT: Mucous membranes pink and moist. NECK: Trachea midline. No JVD. CARDIOVASCULAR: Regular rate and rhythm. RESPIRATORY: No accessory muscle use. Clear to auscultation. Breath sounds equal bilaterally. GASTROINTESTINAL: Abdomen soft, non-tender, nondistended. MUSCULOSKELETAL: No obvious deformities. No clubbing. No cyanosis. No edema. Left flank with nephrostomy tube in place without bag connected to the tube. The site is clean, dry, intact. NEUROLOGICAL: Awake and alert. No obvious cranial nerve deficits. Motor grossly within normal limits. Normal speech. PSYCHIATRIC: Appropriate mood and affect; insight and judgment normal. Course Initial Documented Vital Signs Temperature 99.3 F 05/21/18 18:01 Respiratory Rate 20 05/21/18 18:01 Blood Pressure 136/60 05/21/18 18:01 Pulse Oximetry 92 L 05/21/18 18:01 Last Documented Vital Signs Temperature 99.3 F 05/21/18 18:01 Respiratory Rate 20 05/21/18 18:01 Blood Pressure 136/60 05/21/18 18:01 Pulse Oximetry 92 L 05/21/18 18:01 Medical Decision Making MDM Narrative Medical decision making narrative: Vital signs reviewed. The patient is overall well-appearing and has no real acute issues. The main issue is that she has a proximal left ureteral stone and that she is unable to care for herself or her nephrostomy tube at home. Recent hospital records were reviewed and the patient was discharged home yesterday with recommendations to be discharged to a SNF, however the patient preferred to be discharged home under home health care. She has returned because she is unable to care for herself. I have discussed this with the medical residents who will readmit the patient to their service and likely arrange for SNF placement. Medical Screen Exam Complete: Yes Emergency Medical Condition: Yes Differential Diagnosis Differential Diagnosis: Inability to care for self, nephrolithiasis, hematuria Discharge Plan Physicians Team ED Provider: Buster Le Primary Care Provider: Kevin Soria Rxs /Orders / Referrals /Forms Prescriptions: No Action aspirin [Aspir-81] 81 mg Tablet,Delayed Release (Dr/Ec) 81 mg PO DAILY RF: 0 rosuvastatin 40 mg Tablet 40 mg PO DAILY RF: 0 levothyroxine 50 mcg Capsule 50 mcg PO EVERY OTHER DAY RF: 0 fluvoxamine 50 mg Tablet 100 mg PO DAILY RF: 0 albuterol sulfate 90 mcg/actuation Hfa Aerosol Inhaler 2 puff INHALATION Q4-6H PRN (Reason: Respiratory Distress) RF: 0 albuterol sulfate [Ventolin HFA] 90 mcg/actuation Hfa Aerosol Inhaler 2 puff INHALATION Q4H PRN (Reason: Respiratory Distress) RF: 0 tramadol 50 mg tablet 50 mg PO Q6-8H PRN (Reason: pain) Qty: 7 RF: 0 ondansetron [Zofran ODT] 4 mg tablet,disintegrating 4 mg PO Q6H PRN (Reason: nausea and vomiting) Qty: 7 RF: 0 hydrocodone-acetaminophen [Wayan] 5-325 mg Tablet 1 tab PO Q6H PRN (Reason: Pain) 7 Days Qty: 28 RF: 0 acetaminophen 325 mg Tablet 650 mg PO Q4H PRN (Reason: pain1-3 and/or temp >100.4) RF: 0 sennosides-docusate sodium [Senna Plus] 8.6-50 mg Tablet 1 tab PO BID RF: 0 amoxicillin 125 mg Tablet,Chewable 500 mg PO TID 10 Days Qty: 120 RF: 0 alprazolam 0.25 mg Tablet 0.25 mg PO BID PRN (Reason: Anxiety) RF: 0 tiotropium-olodaterol [Stiolto Respimat] 2.5-2.5 mcg/actuation Mist 2 puff INHALATION DAILY RF: 0 Discharge Interventions Interventions: Vital Signs Last Done: 05/21/18 18:01 Status ED Status: With Doctor
[2018-05-21] MEDS ORDERED: Acetaminophen 325 MG Tablet PO PRN (19:59)
[2018-05-21] MEDS ORDERED: Bisacodyl 10 MG Supp RECTAL PRN (19:59)
[2018-05-21] MEDS: Senna/Docusate Sodium 8.6/50 MG Tablet PO SCH (20:33)
--- NOTE | 2018-05-21 20:34 | P.HPFP ---
History of Present Illness Primary Care Physician: Kevin Soria MD, R3 <Argentina High R - 05/22/18 08:02> Kevin Soria MD, R3 <Rachelle Echeverria A - 05/21/18 20:34> Chief Complaint: hematuria <Rachelle Echeverria - 05/21/18 21:07> History of Present Illness: 73 yo female who was discharged yesterday after a hospitalization for nephrolithiasis s/p stent and nephrostomy tube placement complicated by a UTI who presented to the ED via [facility] with hematuria. Patient was admitted on May 18 and found to have a 1 cm left ureteropelvic junction calculus with hydronephrosis. She is status post ureteral stent placement and nephrostomy tube placement. She also has a UTI growing Streptococcus viridans. Blood cultures were negative to date. Patient was to start amoxicillin 500 mg 3 times daily upon discharge. Home health was set up to help her care for her urostomy bag and they were scheduled to come on May 22. Patient does not currently have the nephrostomy tube capped with bag in place. She does not know why there is no urostomy bag. Patient was also to follow-up with urologist, Dr. Woodall for ESWL. She was scheduled with her PCP next week. Patient states that she did not fill the prescription for the antibiotic. She reports that the pharmacy would not allow her to do so. Patient lives by herself and does not have family or friends to help care for her. Patient states that she would like to go to a facility so that she can take better care of herself for short term. She "feels safer at the hospital." She reports that she is anxious about the whole situation and feels confused. She does not understand why she has hematuria and that is the factor that prompted her to come to the ED. Patient reports constipation of 3-4 days. She denies pain at the time of examination. Past medical hx: hypothyroidism, COPD on 2L O2 at home, anxiety, depression, prediabetes, hyperlipidemia Surgical Hx: appendectomy Social Hx: lives by her self, 57 pack year smoking hx, no alcohol or drug use Allergies: NKDA <Rachelle Echeverria - 05/21/18 21:07> - Diagnosis (1) UTI (urinary tract infection) (2) Left nephrolithiasis (3) Alteration in self-care ability (4) Anxiety (5) High cholesterol (6) Hypothyroidism (7) COPD (chronic obstructive pulmonary disease) (8) Depression (9) Nutrition, metabolism, and development symptoms (10) DVT prophylaxis <Argentina High Bella 05/22/18 08:02> (1) UTI (urinary tract infection) (2) Left nephrolithiasis (3) Alteration in self-care ability (4) Anxiety (5) High cholesterol (6) Hypothyroidism (7) COPD (chronic obstructive pulmonary disease) (8) Depression (9) Nutrition, metabolism, and development symptoms (10) DVT prophylaxis <JuwanRachelle Ynes 05/21/18 21:07> Review of Systems Constitutional: Denies chills, Denies headache(s) <JuwanRachelle A 21:07> Eyes: Denies blurry vision <Rachelle Echeverria 05/21/18 21:07> Ears, Nose, Mouth, and Throat: Denies nasal obstruction <JuwanRachelle A 05/21/18 21:07> Cardiovascular: Denies chest pain <JuwanRachelle A 05/21/18 21:07> Respiratory: Reports shortness of breath <JuwanRachelle A 05/21/18 21:07> Gastrointestinal: Reports constipation, Denies abdominal pain <Juwan Rachelle A 05/21/18 21:07> Genitourinary: Reports blood in urine <Rachelle Echeverria 05/21/18 21:07> Musculoskeletal: Reports back pain <JuwanRachelle Ynes 05/21/18 21:07> Comments: pain at nephrostomy site <Rachelle Echeverria 05/21/18 21:07> Skin/Breast: Reports dry skin <Gino Echeverriaa A 05/21/18 21:07> Neurologic: Denies loss of vision <Rachelle Echeverria 05/21/18 21:07> Psychiatric: Reports anxiety <Rachelle Echeverria 05/21/18 21:07> Endocrine: Denies rapid, pounding, or irregular heartbeat <Rachelle Echeverria - 05/21/18 21:07> PMFSH - History History Provided By: Patient <Rachelle Echeverria 05/21/18 20:34> - Medical History Medical History: Medical History (Last Reviewed 05/21/18 @ 18:35 by Jesica Méndez) Hypothyroidism (Chronic) COPD (chronic obstructive pulmonary disease) (Chronic) History of OCD (obsessive compulsive disorder) (Chronic) Depression (Chronic) Anxiety High cholesterol Kidney stone on left side Prediabetes Tobacco abuse <Argentina High - 05/22/18 08:02> Medical History (Last Reviewed 05/21/18 @ 18:35 by Jesica Méndez) Hypothyroidism (Chronic) COPD (chronic obstructive pulmonary disease) (Chronic) History of OCD (obsessive compulsive disorder) (Chronic) Depression (Chronic) Anxiety High cholesterol Kidney stone on left side Prediabetes Tobacco abuse <Rachelle Echeverria 05/21/18 20:34> - Surgical History Surgical History: Surgical History (Last Reviewed 05/21/18 @ 18:35 by Jesica Méndez) Amputation, finger, traumatic History of appendectomy <Argentina High 05/22/18 08:02> Surgical History (Last Reviewed 05/21/18 @ 18:35 by Jesica Méndez) Amputation, finger, traumatic History of appendectomy <Rachelle Echeverria 05/21/18 20:34> - Family History Family History: Family History (Last Reviewed 05/19/18 @ 08:37 by Amrit aBrr) Sister Family history of acute myocardial infarction Mother Family history of acute myocardial infarction <Argentina High 05/22/18 08:02> Family History (Last Reviewed 05/19/18 @ 08:37 by Amrit Barr) Sister Family history of acute myocardial infarction Mother Family history of acute myocardial infarction <Rachelle Echeverria 05/21/18 20:34> - Tobacco History Second Hand Smoke Exposure: No <Rachelle Echeverria 05/21/18 20:34> Smoking Status: Former smoker <Rachelle Echeverria 05/21/18 20:34> Tobacco Type: Cigarettes <Rachelle Echeverria 05/21/18 20:34> Packs Per Day: 1 <Rachelle Echeverria 05/21/18 20:34> Cigarettes Per Day: 20.0 <Rachelle Echeverria 05/21/18 20:34> - Alcohol History How Often Do You Have a Drink Containing Alcohol: Never <Rachelle Echeverria 05/21/18 20:34> - Substance Use History Substance History: No History of Abuse <Rachelle Echeverria 05/21/18 20:34> - Travel History Recent Travel in the [facility] Within the Last 8 Weeks: No <Rachelle Echeverria 20:34> Recent Travel Out of the Country Within the Last 8 Weeks: No <Rachelle Echeverria 05/21/18 20:34> - Immunization History Tetanus Immunization: Unsure <Rachelle Echeverria 05/21/18 20:34> Hx Influenza Vaccine This Season: No <Rachelle Echeverria 05/21/18 20:34> Medications and Allergies Allergies Allergy/AdvReac Type Severity Reaction Status Date / Time No Known Allergies Allergy Verified 05/21/18 04:25 <Argentina High - 05/22/18 08:02> Home Medications Medication Instructions Recorded Confirmed Type albuterol sulfate 2 puff INHALATION Q4-6H PRN 02/26/18 05/21/18 History albuterol sulfate [Ventolin HFA] 2 puff INHALATION Q4H PRN 02/26/18 05/21/18 History aspirin [Aspir-81] 81 mg PO DAILY 02/26/18 05/21/18 History fluvoxamine 100 mg PO DAILY 02/26/18 05/21/18 History levothyroxine 50 mcg PO EVERY OTHER DAY 02/26/18 05/21/18 History rosuvastatin 40 mg PO DAILY 02/26/18 05/21/18 History alprazolam 0.25 mg PO BID PRN 05/15/18 05/21/18 History tiotropium-olodaterol [Stiolto 2 puff INHALATION DAILY 05/15/18 05/21/18 History Respimat] <Argentina High R - 05/22/18 08:02> Active Medications: Active Medications Acetaminophen (Tylenol) 650 mg PO Q4H PRN PRN Reason: Temp > 100.4 Al Hydroxide/Mg Hydroxide (Milk Of Magnesia Liq) 30 ml PO Q12H PRN PRN Reason: Mild Constipation Albuterol (Ventolin Hfa Inh) 2 puff INH Q4H PRN PRN Reason: Respiratory Distress Last Admin: 05/21/18 23:21 Dose: 2 puff Alprazolam (Xanax) 0.25 mg PO BID PRN PRN Reason: Anxiety Last Admin: 05/21/18 23:21 Dose: 0.25 mg Amoxicillin (Amoxil) 500 mg PO TID [facility] Last Admin: 05/21/18 20:33 Dose: 500 mg Aspirin (Ecotrin) 81 mg PO DAILY [facility] Atorvastatin Calcium (Lipitor) 80 mg PO DAILY [facility] Bisacodyl (Dulcolax Supp) 10 mg RECTAL DAILY PRN PRN Reason: SEVERE CONSITIPATION Fluvoxamine Maleate (Luvox) 100 mg PO DAILY [facility] Lactulose (Lactulose Liq) 30 ml PO DAILY PRN PRN Reason: SEVERE CONSITIPATION Levothyroxine Sodium (Synthroid) 50 mcg PO Q48H [facility] Ondansetron HCl (Zofran Odt) 4 mg PO Q6H PRN PRN Reason: nausea and vomiting [place] Own Med: Tiotropium- Olodaterol (Stiolto Respimat) 2.5mcg-2. 5mcg 0 each INH DAILY [facility] Senna/Docusate Sodium (Xochitl-Colace) 1 tab PO BID [facility] Last Admin: 05/21/18 20:33 Dose: 1 tab Sennosides (Senokot) 17.2 mg PO Q12H PRN PRN Reason: Moderate Constipation Tramadol HCl (Ultram) 50 mg PO Q6H PRN PRN Reason: pain Last Admin: 05/22/18 06:11 Dose: 50 mg <Argentina High R - 05/22/18 08:02> Active Medications Acetaminophen (Tylenol) 650 mg PO Q4H PRN PRN Reason: Temp > 100.4 Al Hydroxide/Mg Hydroxide (Milk Of Magnesia Liq) 30 ml PO Q12H PRN PRN Reason: Mild Constipation Alprazolam (Xanax) 0.25 mg PO BID PRN PRN Reason: Anxiety Amoxicillin (Amoxil) 500 mg PO TID [facility] Aspirin (Ecotrin) 81 mg PO DAILY [facility] Bisacodyl (Dulcolax Supp) 10 mg RECTAL DAILY PRN PRN Reason: SEVERE CONSITIPATION Fluvoxamine Maleate (Luvox) 100 mg PO DAILY [facility] Lactulose (Lactulose Liq) 30 ml PO DAILY PRN PRN Reason: SEVERE CONSITIPATION Non-Formulary Medication (Albuterol Hfa Inh) 2 puff INHALATION Q4H PRN PRN Reason: Respiratory Distress Non-Formulary Medication (Levothyroxine [Levothyroxine]) 50 mcg PO EVERY OTHER DAY [facility] Ondansetron HCl (Zofran Odt) 4 mg PO Q6H PRN PRN Reason: nausea and vomiting Senna/Docusate Sodium (Xochitl-Colace) 1 tab PO BID [facility] Sennosides (Senokot) 17.2 mg PO Q12H PRN PRN Reason: Moderate Constipation Tramadol HCl (Ultram) 50 mg PO Q6-8H PRN PRN Reason: pain <Rachelle Echeverria - 05/21/18 20:34> Exam Vital signs: Vital Signs 05/21/18 18:01 05/21/18 20:52 05/21/18 21:16 Temperature 99.3 F Pulse Rate 78 Respiratory Rate 20 20 Blood Pressure 136/60 134/62 Pulse Oximetry 92 L 94 L 94 L 05/21/18 22:31 05/21/18 22:58 05/21/18 23:00 Temperature 98.1 F Pulse Rate 75 Respiratory Rate 20 Blood Pressure 130/71 Pulse Oximetry 94 L 92 L 91 L Intake & Output 05/21/18 05/22/18 05/22/18 18:59 06:59 18:59 Intake Total 480 / 480 Output Total 975 / 975 Balance -495 / -495 Weight 60 kg 60 kg Intake: Oral 480 / 480 Output: Urine Amount (Stoma) 975 / 975 Nephrostomy Tube Left 975 / 975 <Argentina Hihg - 05/22/18 08:02> Vital Signs 05/21/18 18:01 Temperature 99.3 F Respiratory Rate 20 Blood Pressure 136/60 Pulse Oximetry 92 L Intake & Output 05/21/18 05/21/18 05/22/18 06:59 18:59 06:59 Weight 60 kg <JuwanRachelle A - 05/21/18 20:34> - Constitutional no acute distress <JuwanRachelle A - 05/21/18 21:07> - Routine HEENT Exam Head: Present: normocephalic, atraumatic <JuwanRachelle A - 05/21/18 21:07> Eye: Present: PERRL <NehaalbertRachelle A - 05/21/18 21:07> ENT: Present: mucous membranes moist <JuwanRachelle A - 05/21/18 21:07> - Routine Chest/Breast/Axilla Exam Chest wall: Absent: tenderness <NehaalbertRachelle A - 05/21/18 21:07> - Routine Respiratory Exam Present: decreased breath sounds, diminished air movement <Gino Echeverriaa A - 05/21/18 21:07> - Routine Cardiovascular Exam Present: RRR, S1, S2 <JuwanRachelle A - 05/21/18 21:07> - Routine Abdominal Exam Present: soft, normoactive bowel sounds <JuwanRachelle A - 05/21/18 21:07> - Routine Extremities Exam Absent: calf tenderness <NehaalbertRachelle A 05/21/18 21:07> - Routine Skin Exam Present: intact <JuwanRachelle A - 05/21/18 21:07> - Routine Neurological Exam Present: alert, oriented X3, normal speech <NehaalbertRachelle Ynes 05/21/18 21:07 > - Additional findings Additional findings: Patient's nephrostomy site is bandaged. No bag is connected to the tube. <JuwanRachelle A - 05/21/18 21:07> Caprini VTE Risk Assessment Caprini VTE Risk Assessment: Moderate/High Risk (score >= 2) <Rachelle Echeverria - 05/21/18 21:07> Caprini Risk Assessment Model: Point Value = 1 Point Value = 2 Point Value = 3 Point Value = 5 Age 41-60 Minor surgery BMI > 25 kg/m2 Swollen legs Varicose veins or History of unexplained or recurrent spontaneous Oral contraceptives or hormone replacement Sepsis (< 1 month) Serious lung disease, including pneumonia (< 1 month) Abnormal pulmonary function Acute myocardial infarction Congestive heart failure (< 1 month) History of inflammatory bowel disease Medical patient at bed rest Age 61-74 Arthroscopic surgery Major open surgery (> 45 min) Laparoscopic surgery (> 45 min) Malignancy Confined to bed (> 72 hours) Immobilizing plaster cast Central venous access Age >= 75 History of VTE Family history of VTE Factor V Leiden Prothrombin [id number] Lupus anticoagulant Anticardiolipin antibodies Elevated serum homocysteine Heparin-induced thrombocytopenia Other congenital or acquired thrombophilia Stroke (< 1 month) Elective arthroplasty Hip, pelvis, or leg fracture Acute spinal cord injury (< 1 month) <Argentina High - 05/22/18 08:02> Point Value = 1 Point Value = 2 Point Value = 3 Point Value = 5 Age 41-60 Minor surgery BMI > 25 kg/m2 Swollen legs Varicose veins or History of unexplained or recurrent spontaneous Oral contraceptives or hormone replacement Sepsis (< 1 month) Serious lung disease, including pneumonia (< 1 month) Abnormal pulmonary function Acute myocardial infarction Congestive heart failure (< 1 month) History of inflammatory bowel disease Medical patient at bed rest Age 61-74 Arthroscopic surgery Major open surgery (> 45 min) Laparoscopic surgery (> 45 min) Malignancy Confined to bed (> 72 hours) Immobilizing plaster cast Central venous access Age >= 75 History of VTE Family history of VTE Factor V Leiden Prothrombin [id number] Lupus anticoagulant Anticardiolipin antibodies Elevated serum homocysteine Heparin-induced thrombocytopenia Other congenital or acquired thrombophilia Stroke (< 1 month) Elective arthroplasty Hip, pelvis, or leg fracture Acute spinal cord injury (< 1 month) <Rachelle Echeverria - 05/21/18 21:07> Prophylaxis Regimen: Total Risk Factor Score Risk Level Prophylaxis Regimen 0-1 Low Early ambulation 2 Moderate Order ONE of the following: *Sequential Compression Device (SCD) *Heparin 5000 units SQ BID 3-4 Higher Order ONE of the following medications: *Heparin 5000 units SQ TID *Enoxaparin/Lovenox 40 mg SQ daily (WT < 150 kg, CrCl > 30 mL/min) *Enoxaparin/Lovenox 30 mg SQ daily (WT < 150 kg, CrCl > 10-29 mL/min) *Enoxaparin/Lovenox 30 mg SQ BID (WT < 150 kg, CrCl > 30 mL/min) AND/OR *Sequential Compression Device (SCD) 5 or more Highest Order ONE of the following medications: *Heparin 5000 units SQ TID (Preferred with Epidurals) *Enoxaparin/Lovenox 40 mg SQ daily (WT < 150 kg, CrCl > 30 mL/min) *Enoxaparin/Lovenox 30 mg SQ daily (WT < 150 kg, CrCl > 10-29 mL/min) *Enoxaparin/Lovenox 30 mg SQ BID (WT < 150 kg, CrCl > 30 mL/min) AND *Sequential Compression Device (SCD) <Argentina High - 05/22/18 08:02> Total Risk Factor Score Risk Level Prophylaxis Regimen 0-1 Low Early ambulation 2 Moderate Order ONE of the following: *Sequential Compression Device (SCD) *Heparin 5000 units SQ BID 3-4 Higher Order ONE of the following medications: *Heparin 5000 units SQ TID *Enoxaparin/Lovenox 40 mg SQ daily (WT < 150 kg, CrCl > 30 mL/min) *Enoxaparin/Lovenox 30 mg SQ daily (WT < 150 kg, CrCl > 10-29 mL/min) *Enoxaparin/Lovenox 30 mg SQ BID (WT < 150 kg, CrCl > 30 mL/min) AND/OR *Sequential Compression Device (SCD) 5 or more Highest Order ONE of the following medications: *Heparin 5000 units SQ TID (Preferred with Epidurals) *Enoxaparin/Lovenox 40 mg SQ daily (WT < 150 kg, CrCl > 30 mL/min) *Enoxaparin/Lovenox 30 mg SQ daily (WT < 150 kg, CrCl > 10-29 mL/min) *Enoxaparin/Lovenox 30 mg SQ BID (WT < 150 kg, CrCl > 30 mL/min) AND *Sequential Compression Device (SCD) <Rachelle Echeverria - 05/21/18 21:07> Assessment and Plan - Assessment (1) UTI (urinary tract infection) Code(s): N39.0 - Urinary tract infection, site not specified Status: Acute (2) Left nephrolithiasis Code(s): N20.0 - Calculus of kidney Status: Acute (3) Alteration in self-care ability Code(s): R53.81 - Other malaise Status: Acute (4) Anxiety Code(s): F41.9 - Anxiety disorder, unspecified Status: Acute (5) High cholesterol Code(s): E78.00 - Pure hypercholesterolemia, unspecified Status: Acute (6) Hypothyroidism Code(s): E03.9 - Hypothyroidism, unspecified Status: Chronic (7) COPD (chronic obstructive pulmonary disease) Code(s): J44.9 - Chronic obstructive pulmonary disease, unspecified Status: Chronic (8) Depression Code(s): F32.9 - Major depressive disorder, single episode, unspecified Status : Chronic (9) Nutrition, metabolism, and development symptoms Code(s): R63.8 - Other symptoms and signs concerning food and fluid intake Status: Acute (10) DVT prophylaxis Status: Acute <Argentina High Bella - 05/22/18 08:02> (1) UTI (urinary tract infection) Code(s): N39.0 - Urinary tract infection, site not specified Status: Acute Plan: 73 yo female who was discharged yesterday after a hospitalization for nephrolithiasis s/p stent and nephrostomy tube placement complicated by a UTI who has not been able to obtain her antibiotic medications. She has poor insight into her condition and an alteration in her ability to care for herself. - Start amoxicillin 500 mg TID - Consult case management (2) Left nephrolithiasis Code(s): N20.0 - Calculus of kidney Status: Acute Plan: - Consult case management to aid in setting up appointment with Dr. Woodall, urology (3) Alteration in self-care ability Code(s): R53.81 - Other malaise Status: Acute Plan: Patient cannot take care of herself independently at this time. She is interested in SNF placement. - Consult case management (4) Anxiety Code(s): F41.9 - Anxiety disorder, unspecified Status: Acute Plan: - Continue home xanax 0.25mg BID PRN (5) High cholesterol Code(s): E78.00 - Pure hypercholesterolemia, unspecified Status: Acute Plan: -Continue home rosuvastatin 40 mg (6) Hypothyroidism Code(s): E03.9 - Hypothyroidism, unspecified Status: Chronic Plan: - Continue home levothyroxine 50 mcg daily (7) COPD (chronic obstructive pulmonary disease) Code(s): J44.9 - Chronic obstructive pulmonary disease, unspecified Status: Chronic Plan: -Ventolin inhaler 2 puffs BID - Continue patient's home Respimat -Supplemental O2, titrate 1-4L NC -Continuous pulse oximetry (8) Depression Code(s): F32.9 - Major depressive disorder, single episode, unspecified Status : Chronic (9) Nutrition, metabolism, and development symptoms Code(s): R63.8 - Other symptoms and signs concerning food and fluid intake Status: Acute Plan: Fluids: none as patient tolerates PO Electrolytes: BMP PENDING Nutrition: regular diet (10) DVT prophylaxis Status: Acute Plan: - bilateral SCDs <Rachelle Echeverria - 05/21/18 21:07> - Assessment and Plan Discussed Condition With: Seen and discussed with Dr. Pierre <Rachelle Echeverria - 05/21/18 21:19> - Attending Attestation Patient discussed with resident team. Agree with admission. Case management to assist with arrangement of SNF placement possibly. Patient is medically stable as she was at discharge, so as soon as placement or help at home can be arranged patient can be discharged. <Argentina High R - 05/22/18 08:02> <Rachelle Echeverria - Last Filed: 05/21/18 21:07> (7) COPD (chronic obstructive pulmonary disease) Qualifiers: COPD type: unspecified COPD Qualified Code(s): J44.9 - Chronic obstructive pulmonary disease, unspecified <Argentina High - Last Filed: 05/22/18 08:02> (7) COPD (chronic obstructive pulmonary disease) Qualifiers: COPD type: unspecified COPD Qualified Code(s): J44.9 - Chronic obstructive pulmonary disease, unspecified <Rachelle Echeverria A - Last Filed: 05/21/18 21:07> (7) COPD (chronic obstructive pulmonary disease) Qualifiers: COPD type: unspecified COPD Qualified Code(s): J44.9 - Chronic obstructive pulmonary disease, unspecified <Argentina High R - Last Filed: 05/22/18 08:02> (7) COPD (chronic obstructive pulmonary disease) Qualifiers: COPD type: unspecified COPD Qualified Code(s): J44.9 - Chronic obstructive pulmonary disease, unspecified
[2018-05-21] MEDS: ALPRAZolam 0.25 MG Tablet PO PRN (23:21)
[2018-05-22] MEDS ORDERED: OLODATEROL INH SCH ×2 (09:00)
[2018-05-22] MEDS ORDERED: Non-Formulary Drug (Rosuvastatin [Rosuvastatin] 40 MG) PO SCH (09:00)
[2018-05-22] MEDS ORDERED: TIOTROPIUM INH SCH ×2 (09:00)
[2018-05-22] MEDS ORDERED: Non-Formulary Drug (Tiotropium-Olodaterol [Stiolto Respimat] 2 PUFF) INHALATION SCH (09:00)
[2018-05-22] MEDS: Senna/Docusate Sodium 8.6/50 MG Tablet PO SCH ×2 (09:06→20:04)
[2018-05-22 10:02] LABS: Anion Gap 9 meq/L (5-15); Blood Urea Nitrogen 11 mg/dL (7-18); Carbon Dioxide 35.3 meq/L (21.0-32.0); Chloride 95 meq/L (98-107); Glomerular Filtration Rate Greater Than 89 mL/min (>89); Glucose,Random 86 mg/dL (74-106); Sodium 139 meq/L (136-145)
[2018-05-22] MEDS: ALPRAZolam 0.25 MG Tablet PO PRN ×2 (12:30→21:01)
--- NOTE | 2018-05-22 18:05 | P.PN ---
Subjective Interval history: Pt seen and evaluated today twice. Pt was sent home on Wednesday and states she came back because she "cannot take care of herself" and she lives alone. She states her urine is bloody and she does not understand why. She was DC home on Wednesday with a 10 day course of antibiotics and pain medicines and instructions to follow up with urology and PCP this following week. She reports pain, blood in her urine, itchiness in her back, and confusion regarding conversations on Wednesday. She denies fevers, chills, shortness of breath, chest pain. Physical Exam Vital signs: Vital Signs 05/21/18 18:01 05/21/18 20:52 05/21/18 21:16 Temperature 99.3 F Pulse Rate 78 Respiratory Rate 20 20 Blood Pressure 136/60 134/62 Pulse Oximetry 92 L 94 L 94 L 05/21/18 22:31 05/21/18 22:58 05/21/18 23:00 Temperature 98.1 F Pulse Rate 75 Respiratory Rate 20 Blood Pressure 130/71 Pulse Oximetry 94 L 92 L 91 L 05/22/18 08:00 05/22/18 09:04 05/22/18 10:58 Temperature 97.1 F L Pulse Rate 64 Respiratory Rate 18 Blood Pressure 142/82 H Pulse Oximetry 91 L 92 L 92 L 05/22/18 12:00 Temperature 99.9 F H Pulse Rate 67 Respiratory Rate 18 Blood Pressure 127/95 H Pulse Oximetry 90 L Intake & Output 05/21/18 05/22/18 05/22/18 18:59 06:59 18:59 Intake Total 480 / 480 Output Total 975 / 975 Balance -495 / -495 Weight 60 kg 60 kg Intake: Oral 480 / 480 Output: Urine Amount (Stoma) 975 / 975 Nephrostomy Tube Left 975 / 975 Other: Date of Last Bowel Movement 05/18/18 Narrative: GENERAL: thin elderly woman, in no acute distress SKIN: Warm and dry. Nephrostomy tube in place on R back, rash seen around tape on L and upper side. HEAD: Normocephalic and atraumatic. EYES: No scleral icterus. No injection or drainage. ENT: No nasal drainage noted. Mucous membranes pink. Airway patent. CARDIOVASCULAR: Regular rate and rhythm without murmurs, gallops, or rubs. RESPIRATORY: decreased breath sounds equal bilaterally, baseline for patient. No accessory muscle use. ABDOMEN/GI: Abdomen soft, non-tender, bowel sounds present, no rebound, no guarding EXTREMITIES: No cyanosis or edema. NEUROLOGICAL: Awake and confused, changes her story constantly during conversation. Motor and sensory grossly within normal limits. PSYCH: anxious, stating she wants to leave now or "is gonna lose it", confused regarding prior hospitalization and instructions on Wednesday, does not remember me or me having a conversation at discharge. Cannot focus or maintain train of thought. states she has OCD and intrusive thoughts are always present. Will not elaborate. Results - Labs CBC & Chem 7: 05/22/18 09:00 Laboratory Results - last 24 hr 05/22/18 09:00 Sodium 139 Potassium 3.0 L Chloride 95 L Carbon Dioxide 35.3 H Anion Gap 9 BUN 11 Creatinine 0.48 L Estimated GFR Greater than 89 Random Glucose 86 Calcium 9.0 Assessment and Plan - Assessment (1) UTI (urinary tract infection) Code(s): N39.0 - Status: Acute (2) Left nephrolithiasis Code(s): N20.0 - Status: Acute (3) Alteration in self-care ability Code(s): R53.81 - Status: Acute (4) Anxiety Code(s): F41.9 - Status: Acute (5) High cholesterol Code(s): E78.00 - Status: Acute (6) Hypothyroidism Code(s): E03.9 - Status: Chronic (7) COPD (chronic obstructive pulmonary disease) Code(s): J44.9 - Status: Chronic (8) Depression Code(s): F32.9 - Status: Chronic (9) Patient incapable of making informed decisions Code(s): Z78.9 - Status: Acute (10) Nutrition, metabolism, and development symptoms Code(s): R63.8 - Status: Acute (11) DVT prophylaxis Status: Acute - Plan Ms Jones is a 73 yr old female w/ PMH anxiety, OCD, depression, COPD, hypothyroidism a kidney stone, recently discharged from our service two days ago, returning to the hospital due to inability to take care of herself and follow medical instructions. She has come to the hospital 4 times since last week. She was found to have a stone on her L kidney and required a nephrostomy, and a subsequent UTI. Last Wednesday she insisted she wanted to leave, and refused going to a SNF, she was discharged home on antibiotics, pain control, and home health, which was set to go see her this morning. She returned to the ED yesterday evening. Today, Ms Jones was evaluated in the morning and agreed to got to a SNF. Later this afternoon we were called due to pt wanting to leave AMA. We had an extensive discussion with her, and she was unable to recall the regimen she was discharged on Wednesday, could not remember she needed to have follow up care with urology, and expressed the fact she was anxious and wanted to leave AMA. We believe pt has no insight, is unable to care for herself, and has no decision making capacity at this point. Plan: - UTI with positive cultures for Streptococcus viridans: start IV ceftriaxone 1 gr q24hr - Pain controlled with Tramadol 50mg PO q6 PRN - Continue with care of nephrostomy tube - Hydroxyzine available for itching, which can also help with anxiety - Consulted psychiatry, appreciate recommendations and orders - Consulted CM for placement at SNF - Pt advised she cannot leave the hospital at this time. Security will be contacted if she attempts to leave AMA - Attending Attestation The exam, history, and the medical decision-making described in the above note were completed with the assistance of the resident physician. I reviewed and agree with the findings presented. I attest that I had a [id number] encounter with the patient on the same day, and personally performed and documented my assessment and findings in the medical record. (7) COPD (chronic obstructive pulmonary disease) Qualifiers: COPD type: unspecified COPD Qualified Code(s): J44.9 - Chronic obstructive pulmonary disease, unspecified
[2018-05-23] MEDS: Levothyroxine 50 MCG Tablet PO SCH (05:47)
[2018-05-23 07:24] LABS: Baso % (Auto) 0.5 % (0.0-2.0); Eos # (Auto) 0.3 th/mm3 (0.0-0.4); Hematocrit 36.8 % (35.0-46.0); Hemoglobin 12.6 gm/dL (11.6-15.3); Lymph # (Auto) 0.7 th/mm3 (1.0-4.8); Lymph % (Auto) 8.5 % (9.0-44.0); Mean Corpuscular HGB Conc 34.2 % (32.0-36.0); Mean Corpuscular Hemoglobin 30.7 pg (27.0-34.0); Mean Corpuscular Volume 89.7 fL (80.0-100.0); Mean Platelet Volume 7.3 fL (7.0-11.0); Mono # (Auto) 0.9 th/mm3 (0.0-0.9); Mono % (Auto) 12.1 % (0.0-8.0); Neut # (Auto) 5.8 th/mm3 (1.8-7.7); Neut % (Auto) 74.9 % (16.0-70.0); Platelet Count 214 th/mm3 (150-450); Red Cell Distribution Width 13.2 % (11.6-17.2); White Blood Count 7.7 th/mm3 (4.0-11.0)
[2018-05-23 07:50] LABS: Anion Gap 8 meq/L (5-15); Blood Urea Nitrogen 13 mg/dL (7-18); Calcium 8.7 mg/dL (8.5-10.1); Carbon Dioxide 34.9 meq/L (21.0-32.0); Chloride 96 meq/L (98-107); Glomerular Filtration Rate Greater Than 89 mL/min (>89); Glucose,Random 106 mg/dL (74-106); Potassium 3.1 meq/L (3.5-5.1); Sodium 139 meq/L (136-145)
[2018-05-23] MEDS: Senna/Docusate Sodium 8.6/50 MG Tablet PO SCH ×2 (08:08→21:39)
--- NOTE | 2018-05-23 11:20 | P.PNFP ---
Subjective Interval history: No acute events overnight. Patient seen and examined this AM. Remains afebrile, vitals stable. Patient reports symptoms of depression this morning. She denies SI or HI. She also reported "cyclic thoughts" and periods where she feels inclined to continue activities such as cleaning. Patient also reported a rash on her left upper back. Endorses this is pruritic. Denied pain or drainage. Unclear when this may have started. She otherwise denied fevers, CP, dyspnea. <Satish Blank - 05/23/18 11:39> Results - Labs Result diagrams: 05/23/18 06:46 05/23/18 06:46 <Argentina High - 05/23/18 13:05> Abnormal lab results 05/23/18 05/23/18 Range/Units 06:46 06:46 Neut % (Auto) 74.9 H (16.0-70.0) % Lymph % (Auto) 8.5 L (9.0-44.0) % Mitchell % (Auto) 12.1 H (0.0-8.0) % Lymph # (Auto) 0.7 L (1.0-4.8) th/mm3 Potassium 3.1 L (3.5-5.1) meq/L Chloride 96 L (98-107) meq/L Carbon Dioxide 34.9 H (21.0-32.0) meq/L Short CBC 05/23/18 Range/Units 06:46 WBC 7.7 (4.0-11.0) th/mm3 Hgb 12.6 (11.6-15.3) gm/dL Hct 36.8 (35.0-46.0) % Plt Count 214 D (150-450) th/mm3 BMP 05/23/18 06:46 Sodium 139 Potassium 3.1 L Chloride 96 L Carbon Dioxide 34.9 H BUN 13 Creatinine 0.50 Calcium 8.7 <Argentina High R - 05/23/18 13:05> Abnormal lab results 05/23/18 05/23/18 Range/Units 06:46 06:46 Neut % (Auto) 74.9 H (16.0-70.0) % Lymph % (Auto) 8.5 L (9.0-44.0) % Mitchell % (Auto) 12.1 H (0.0-8.0) % Lymph # (Auto) 0.7 L (1.0-4.8) th/mm3 Potassium 3.1 L (3.5-5.1) meq/L Chloride 96 L (98-107) meq/L Carbon Dioxide 34.9 H (21.0-32.0) meq/L Short CBC 05/23/18 Range/Units 06:46 WBC 7.7 (4.0-11.0) th/mm3 Hgb 12.6 (11.6-15.3) gm/dL Hct 36.8 (35.0-46.0) % Plt Count 214 D (150-450) th/mm3 BMP 05/23/18 06:46 Sodium 139 Potassium 3.1 L Chloride 96 L Carbon Dioxide 34.9 H BUN 13 Creatinine 0.50 Calcium 8.7 <Satish Blank - 05/23/18 11:20> Physical Exam Vital signs: Vital Signs 05/22/18 16:00 05/22/18 17:11 05/22/18 17:47 Temperature 98.7 F Pulse Rate 68 68 Respiratory Rate 16 16 Blood Pressure 133/79 Pulse Oximetry 90 L 92 L 05/22/18 19:30 05/22/18 20:00 05/23/18 00:00 Temperature 97.4 F L 98.9 F Pulse Rate 72 68 69 Respiratory Rate 18 18 17 Blood Pressure 122/58 L 116/58 L Pulse Oximetry 94 L 92 L 05/23/18 03:56 05/23/18 08:00 05/23/18 08:17 Temperature 97.7 F Pulse Rate 69 65 Respiratory Rate 16 18 Blood Pressure 121/60 Pulse Oximetry 92 L 94 L 05/23/18 11:35 05/23/18 12:00 Temperature 98.3 F Pulse Rate 65 66 Respiratory Rate 16 20 Blood Pressure 142/66 H Pulse Oximetry 93 L 92 L Intake & Output 05/22/18 05/23/18 05/23/18 18:59 06:59 18:59 Intake Total 720 / 720 700 / 700 Output Total 600 / 600 600 / 600 Balance 120 / 120 100 / 100 Weight 60 kg Intake: IV 100 / 100 Rocephin Inj 1,000 MG In NS Inj 100 / 100 100 ML @ 200 mls/hr IV.SIG Q24H [facility] Rx#:[id number] Oral 720 / 720 600 / 600 Output: Urine Amount (Stoma) 600 / 600 600 / 600 Nephrostomy Tube Left 600 / 600 600 / 600 Other: Date of Last Bowel Movement 05/18/18 05/22/18 # Bowel Movements 0 <MadeleniefredicarlosArgentina alfredo R - 05/23/18 13:05> Vital Signs 05/22/18 12:00 05/22/18 16:00 05/22/18 17:11 Temperature 99.9 F H 98.7 F Pulse Rate 67 68 Respiratory Rate 18 16 Blood Pressure 127/95 H 133/79 Pulse Oximetry 90 L 90 L 92 L 05/22/18 17:47 05/22/18 19:30 05/22/18 20:00 Temperature 97.4 F L Pulse Rate 68 72 68 Respiratory Rate 16 18 18 Blood Pressure 122/58 L Pulse Oximetry 94 L 05/23/18 00:00 05/23/18 03:56 05/23/18 08:00 Temperature 98.9 F Pulse Rate 69 69 67 Respiratory Rate 17 16 16 Blood Pressure 116/58 L Pulse Oximetry 92 L 05/23/18 08:17 Temperature Pulse Rate Respiratory Rate Blood Pressure Pulse Oximetry 94 L Intake & Output 05/22/18 05/23/18 05/23/18 18:59 06:59 18:59 Intake Total 720 / 720 700 / 700 Output Total 600 / 600 600 / 600 Balance 120 / 120 100 / 100 Weight 60 kg Intake: IV 100 / 100 Rocephin Inj 1,000 MG In NS Inj 100 / 100 100 ML @ 200 mls/hr IV.SIG Q24H [facility] Rx#:[id number] Oral 720 / 720 600 / 600 Output: Urine Amount (Stoma) 600 / 600 600 / 600 Nephrostomy Tube Left 600 / 600 600 / 600 Other: Date of Last Bowel Movement 05/18/18 05/22/18 # Bowel Movements 0 <Satish Blank - 05/23/18 11:20> Narrative: GENERAL: thin elderly woman, in no acute distress SKIN: Warm and dry. Nephrostomy tube in place on R back, rash seen around tape on L and upper side that has increased in size from prior examination. Erythematous slightly raised patches covering left upper and lateral back extending across multiple dermatomes. Appears nontender to the touch. HEAD: Normocephalic and atraumatic. EYES: No scleral icterus. No injection or drainage. ENT: No nasal drainage noted. Mucous membranes pink. Airway patent. CARDIOVASCULAR: Regular rate and rhythm without murmurs, gallops, or rubs. RESPIRATORY: breath sounds equal bilaterally, baseline for patient. No accessory muscle use. ABDOMEN/GI: Abdomen nondistended EXTREMITIES: No cyanosis or edema. NEUROLOGICAL: Awake and alert. Motor and sensory grossly within normal limits. PSYCH: Does appear anxious. Thought process is linear. Answers questions appropriately. <Satish Blank - 05/23/18 11:39> Assessment and Plan - Assessment (1) UTI (urinary tract infection) Code(s): N39.0 - Urinary tract infection, site not specified Status: Acute (2) Rash Code(s): R21 - Rash and other nonspecific skin eruption Status: Acute (3) Left nephrolithiasis Code(s): N20.0 - Calculus of kidney Status: Acute (4) Alteration in self-care ability Code(s): R53.81 - Other malaise Status: Acute (5) Anxiety Code(s): F41.9 - Anxiety disorder, unspecified Status: Acute (6) High cholesterol Code(s): E78.00 - Pure hypercholesterolemia, unspecified Status: Acute (7) Hypothyroidism Code(s): E03.9 - Hypothyroidism, unspecified Status: Chronic (8) COPD (chronic obstructive pulmonary disease) Code(s): J44.9 - Chronic obstructive pulmonary disease, unspecified Status: Chronic (9) Depression Code(s): F32.9 - Major depressive disorder, single episode, unspecified Status : Chronic (10) Patient incapable of making informed decisions Code(s): Z78.9 - Status: Acute (11) Nutrition, metabolism, and development symptoms Code(s): R63.8 - Other symptoms and signs concerning food and fluid intake Status: Acute (12) DVT prophylaxis Status: Acute <Argentina High - 05/23/18 13:05> (1) UTI (urinary tract infection) Code(s): N39.0 - Status: Acute Plan: 73 yo female who was discharged on 05/20 after a hospitalization for nephrolithiasis s/p stent and nephrostomy tube placement complicated by a UTI, patient was not able to obtain her antibiotics as an outpatient. She has poor insight into her condition and an alteration in her ability to care for herself. - Continue Rocephin 1 gm IV q24h - Urine culture from 05/18 growing viridans strep > 100,000 cfus/mL (2) Rash Code(s): R21 - Status: Acute Plan: Patient noted to have a rash of left upper and lateral back worsening from yesterday, consider due to contact allergic dermatitis from tape or ostomy bag, vs herpes zoster although not suspecting at this time Continue hydroxyzine 10 mg po q6h scheduled Will re-evaluate pt this afternoon and if not improving consider course of steroids (3) Left nephrolithiasis Code(s): N20.0 - Status: Acute Plan: - Consult case management to aid in setting up appointment with Dr. Woodall, urology - Will place cap on left nephrostomy tube, discuss with urology if any further management needed prior to anticipated discharge to SNF (4) Alteration in self-care ability Code(s): R53.81 - Status: Acute Plan: Patient cannot take care of herself independently at this time. She is interested in SNF placement. - Consult case management (5) Anxiety Code(s): F41.9 - Status: Acute Plan: - Continue home xanax 0.25mg BID PRN (6) High cholesterol Code(s): E78.00 - Status: Acute Plan: -Continue home rosuvastatin 40 mg (7) Hypothyroidism Code(s): E03.9 - Status: Chronic Plan: - Continue home levothyroxine 50 mcg daily (8) COPD (chronic obstructive pulmonary disease) Code(s): J44.9 - Status: Chronic Plan: -Ventolin inhaler 2 puffs BID - Continue patient's home Respimat -Supplemental O2, titrate 1-4L NC -Continuous pulse oximetry (9) Depression Code(s): F32.9 - Status: Chronic Plan: Consult psychiatry, consider diagnosis of depression vs bipolar disorder, patient also reported h/o OCD (10) Patient incapable of making informed decisions Code(s): Z78.9 - Status: Acute (11) Nutrition, metabolism, and development symptoms Code(s): R63.8 - Status: Acute Plan: Fluids: none as patient tolerates PO Electrolytes: continue to monitor and replete if needed Nutrition: regular diet (12) DVT prophylaxis Status: Acute Plan: - bilateral SCDs <Satish Blank - 05/23/18 11:20> - Assessment and Plan 73 yo female who was discharged 05/20 after a hospitalization for nephrolithiasis s/p stent and nephrostomy tube placement complicated by a UTI who has not been able to obtain her antibiotic medications. She has poor insight into her condition and an alteration in her ability to care for herself and would benefit from placement to a SNF until medical problems are more stabilized. <Satish Blank - 05/23/18 11:39> - Attending Attestation The exam, history, and the medical decision-making described in the above note were completed with the assistance of the resident physician. I reviewed and agree with the findings presented. I attest that I had a [id number] encounter with the patient on the same day, and personally performed and documented my assessment and findings in the medical record. <Ar[place] High - 05/23/18 13:05> <Satish Blank - Last Filed: 05/23/18 11:20> (8) COPD (chronic obstructive pulmonary disease) Qualifiers: COPD type: unspecified COPD Qualified Code(s): J44.9 - Chronic obstructive pulmonary disease, unspecified <Ar[place] High - Last Filed: 05/23/18 13:05> (8) COPD (chronic obstructive pulmonary disease) Qualifiers: COPD type: unspecified COPD Qualified Code(s): J44.9 - Chronic obstructive pulmonary disease, unspecified <Satish Blank - Last Filed: 05/23/18 11:20> (8) COPD (chronic obstructive pulmonary disease) Qualifiers: COPD type: unspecified COPD Qualified Code(s): J44.9 - Chronic obstructive pulmonary disease, unspecified <Ar[place] High - Last Filed: 05/23/18 13:05> (8) COPD (chronic obstructive pulmonary disease) Qualifiers: COPD type: unspecified COPD Qualified Code(s): J44.9 - Chronic obstructive pulmonary disease, unspecified
[2018-05-23] MEDS: ALPRAZolam 0.25 MG Tablet PO PRN (13:23)
--- NOTE | 2018-05-23 14:38 | P.CONPSY ---
Provisional Diagnosis Admission Date: May 22, 2018 10:51 Charlotte I.: Adjustment disorder with anxiety, history of OCD, bipolar disorder Charlotte II.: Deferred Charlotte III.: COPD, hypothyroidism, diabetes History of Present Illness Service: Medicine Primary Care Provider: Kevin Soria MD, R3 Family Provider: Kevin Soria MD, R3 Chief Complaint: hematuria History of Present Illness: The patient is a 73 year-old woman, domiciled alone in [facility], , unemployed, supported by [employer] benefits, with a psychiatric history of depression, bipolar disorder, OCD, benzodiazepine dependence, previous psychiatric hospitalizations, she denies previous suicidal attempts, outpatient care in [facility], she is on Luvox 75 mg, Xanax 0.5 mg 3 times daily, she has history of ECT in the 70s in [place], medical history of COPD, hypothyroidism, hyperlipidemia, who was discharged yesterday after a hospitalization for nephrolithiasis s/p stent and nephrostomy tube placement complicated by a UTI who presented to the ED via [facility] with hematuria. Patient was admitted on May 18 and found to have a 1 cm left ureteropelvic junction calculus with hydronephrosis. She is status post ureteral stent placement and nephrostomy tube placement. She also has a UTI growing Streptococcus viridans. Blood cultures were negative to date. Patient was to start amoxicillin 500 mg 3 times daily upon discharge. Home health was set up to help her care for her urostomy bag and they were scheduled to come on May 22. Patient does not currently have the nephrostomy tube capped with bag in place. She does not know why there is no urostomy bag. Patient was also to follow-up with urologist, Dr. Woodall for ESWL. She was scheduled with her PCP next week. Patient states that she did not fill the prescription for the antibiotic. She reports that the pharmacy would not allow her to do so. Patient lives by herself and does not have family or friends to help care for her. Patient states that she would like to go to a facility so that she can take better care of herself for short term. She "feels safer at the hospital." She reports that she is anxious about the whole situation and feels confused. There is a concern about self-care deficits, she was consulted to psychiatry to address potential cognitive problems and history of psychiatric illnesses. My psychiatric evaluation I find a patient that is calm, cooperative and pleasant. The patient reports that she feels quite happy today. She reports that she feels that she is going home soon. She says that the only thing that she is missing to be completely happy is to smoke a cigarette. The patient describes her mood as happy. She denies anhedonia, denies hopelessness, denies hopelessness, denies worthlessness, she denies problems with concentration, denies lack of appetite, denies problems sleeping at night, she denies suicidal and homicidal ideation, she denies visual and auditory hallucinations. She does report that she has been experiencing anxiety at times due to her hospitalization, lack of smoking. She reports that she has history of OCD, but she denies specific intrusive thoughts and compulsions. She does report that she has extreme anxiety with losing control, but she does not like to be confronted about her behavior, has an obsession with order, punctuality, and with her own image and ethical values. The patient reports that they have been moments in her life which she has been cleaning per hours in her house, "but that does not happen all the time". Past psychiatric Hx:f depression, bipolar disorder, OCD, benzodiazepine dependence, previous psychiatric hospitalizations, she denies previous suicidal attempts, outpatient care in [facility], she is on Luvox 75 mg, Xanax 0.5 mg 3 times daily, she was on ECT in [place] in the 70s. Past medical hx: hypothyroidism, COPD on 2L O2 at home, anxiety, depression, prediabetes, hyperlipidemia Surgical Hx: appendectomy Social Hx: lives by her self, she was born and raised in [place], , supported by [employer] benefits 57 pack year smoking hx, no alcohol or drug use Substance HX: Patient denies the use of alcohol and illegal drug [facility] - History History Provided By: Patient - Medical History Medical History: Medical History (Last Reviewed 05/21/18 @ 18:35 by Jesica Méndez) Hypothyroidism (Chronic) COPD (chronic obstructive pulmonary disease) (Chronic) History of OCD (obsessive compulsive disorder) (Chronic) Depression (Chronic) Anxiety High cholesterol Kidney stone on left side Prediabetes Tobacco abuse - Surgical History Surgical History: Surgical History (Last Reviewed 05/21/18 @ 18:35 by Jesica Méndez) Amputation, finger, traumatic History of appendectomy - Family History Family History: Family History (Last Reviewed 05/19/18 @ 08:37 by Amrit Barr) Sister Family history of acute myocardial infarction Mother Family history of acute myocardial infarction - Tobacco History Second Hand Smoke Exposure: Yes Tobacco Use In Past 30 Days: Yes Smoking Status: Current every day smoker Tobacco Type: Cigarettes Packs Per Day: 1 Cigarettes Per Day: 20.0 - Alcohol History How Often Do You Have a Drink Containing Alcohol: Never - Substance Use History Substance History: No History of Abuse - Travel History Recent Travel in the [place] Within the Last 8 Weeks: No Recent Travel Out of the Country Within the Last 8 Weeks: No - Immunization History Tetanus Immunization: Unsure Hx Influenza Vaccine This Season: No Medications and Allergies Active Medications: Active Medications Acetaminophen (Tylenol) 650 mg PO Q4H PRN PRN Reason: Temp > 100.4 Al Hydroxide/Mg Hydroxide (Milk Of Magnesia Liq) 30 ml PO Q12H PRN PRN Reason: Mild Constipation Last Admin: 05/22/18 09:07 Dose: 30 ml Albuterol (Ventolin Hfa Inh) 2 puff INH Q4H PRN PRN Reason: Respiratory Distress Last Admin: 05/21/18 23:21 Dose: 2 puff Albuterol (Albuterol Neb (Prn)) 2.5 mg NEB Q8HR ALT NEB PRN PRN Reason: SHORTNESS OF BREATH Last Admin: 05/23/18 08:00 Dose: 2.5 mg Albuterol (Duoneb Neb (Mariaelena)) 1 ampul NEB Q8HR ALT NEB MARIAELENA Last Admin: 05/23/18 11:34 Dose: 1 ampul Alprazolam (Xanax) 0.25 mg PO BID PRN PRN Reason: Anxiety Last Admin: 05/23/18 13:23 Dose: 0.25 mg Aspirin (Ecotrin) 81 mg PO DAILY [facility] Last Admin: 05/23/18 08:09 Dose: 81 mg Atorvastatin Calcium (Lipitor) 80 mg PO DAILY [facility] Last Admin: 05/23/18 08:10 Dose: 80 mg Bisacodyl (Dulcolax Supp) 10 mg RECTAL DAILY PRN PRN Reason: SEVERE CONSITIPATION Fluvoxamine Maleate (Luvox) 100 mg PO DAILY [facility] Last Admin: 05/23/18 13:29 Dose: 100 mg Hydrocortisone Acetate (Hydrocortisone 1% Cream) 1 applicatio TOPICAL TID [facility] Hydroxyzine HCl (Atarax) 10 mg PO Q6H [facility] Last Admin: 05/23/18 13:23 Dose: 10 mg Ceftriaxone Sodium 1,000 mg/ (Sodium Chloride) 100 mls @ 200 mls/hr IV.SIG Q24H [facility] Last Infusion: 05/22/18 19:06 Dose: Infused Lactulose (Lactulose Liq) 30 ml PO DAILY PRN PRN Reason: SEVERE CONSITIPATION Levothyroxine Sodium (Synthroid) 50 mcg PO Q48H [facility] Last Admin: 05/23/18 05:47 Dose: 50 mcg Ondansetron HCl (Zofran Odt) 4 mg PO Q6H PRN PRN Reason: nausea and vomiting Pat Own Med: Tiotropium- Olodaterol (Stiolto Respimat) 2.5mcg-2. 5mcg 0 each INH DAILY [facility] Potassium Chloride (Klor-Con 10) 40 meq PO ONCE ONE Stop: 05/23/18 14:04 Senna/Docusate Sodium (Xochitl-Colace) 1 tab PO BID [facility] Last Admin: 05/23/18 08:08 Dose: 1 tab Sennosides (Senokot) 17.2 mg PO Q12H PRN PRN Reason: Moderate Constipation Tramadol HCl (Ultram) 50 mg PO Q6H PRN PRN Reason: pain Last Admin: 05/22/18 20:04 Dose: 50 mg Allergies Allergy/AdvReac Type Severity Reaction Status Date / Time No Known Allergies Allergy Verified 05/21/18 04:25 Home Medications Medication Instructions Recorded Confirmed Type albuterol sulfate 2 puff INHALATION Q4-6H PRN 02/26/18 05/21/18 History albuterol sulfate [Ventolin HFA] 2 puff INHALATION Q4H PRN 02/26/18 05/21/18 History aspirin [Aspir-81] 81 mg PO DAILY 02/26/18 05/21/18 History fluvoxamine 75 mg PO HS 02/26/18 05/22/18 History levothyroxine 50 mcg PO EVERY OTHER DAY 02/26/18 05/21/18 History rosuvastatin 40 mg PO DAILY 02/26/18 05/21/18 History alprazolam 0.25 mg PO BID PRN 05/15/18 05/21/18 History tiotropium-olodaterol [Stiolto 2 puff INHALATION DAILY 05/15/18 05/21/18 History Respimat] Exam Vital signs: Vital Signs 05/22/18 16:00 05/22/18 17:11 05/22/18 17:47 Temperature 98.7 F Pulse Rate 68 68 Respiratory Rate 16 16 Blood Pressure 133/79 Pulse Oximetry 90 L 92 L 05/22/18 19:30 05/22/18 20:00 05/23/18 00:00 Temperature 97.4 F L 98.9 F Pulse Rate 72 68 69 Respiratory Rate 18 18 17 Blood Pressure 122/58 L 116/58 L Pulse Oximetry 94 L 92 L 05/23/18 03:56 05/23/18 08:00 05/23/18 08:17 Temperature 97.7 F Pulse Rate 69 65 Respiratory Rate 16 18 Blood Pressure 121/60 Pulse Oximetry 92 L 94 L 05/23/18 11:35 05/23/18 12:00 Temperature 98.3 F Pulse Rate 65 66 Respiratory Rate 16 20 Blood Pressure 142/66 H Pulse Oximetry 93 L 92 L Intake & Output 05/22/18 05/23/18 05/23/18 18:59 06:59 18:59 Intake Total 720 / 720 700 / 700 Output Total 600 / 600 600 / 600 Balance 120 / 120 100 / 100 Weight 60 kg Intake: IV 100 / 100 Rocephin Inj 1,000 MG In NS Inj 100 / 100 100 ML @ 200 mls/hr IV.SIG Q24H [facility] Rx#:[id number] Oral 720 / 720 600 / 600 Output: Urine Amount (Stoma) 600 / 600 600 / 600 Nephrostomy Tube Left 600 / 600 600 / 600 Other: Date of Last Bowel Movement 05/18/18 05/22/18 # Bowel Movements 0 Mental Status Examination Appearance: Appropriate Consciousness: Alert Orientation: x4 Motor Activity: Normal gait Speech: Unremarkable Language: Adequate Fund of Knowledge: Adequate Attention and Concentration: Adequate Memory: Unremarkable Mood: Appropriate Affect: Appropriate Thought Process & Associations: Intact Thought Content: Appropriate Hallucination Type: None Delusion Type: None Suicidal Ideation: No Suicidal Plan: No Suicidal Intention: No Homicidal Ideation: No Homicidal Plan: No Homicidal Intention: No Insight: Adequate Judgment: Adequate Assessment and Plan - Assessment (1) Acute adjustment disorder Code(s): F43.20 - Adjustment disorder, unspecified Status: Acute - Plan Plan: Estimated LOS: [] days On my psychiatric evaluation today I find a patient that is calm, cooperative and pleasant. The patient does not present any significant, concerning, or acute objective or subjective symptomatology of depression that require an immediate psychiatric intervention or admission. The patient denies symptomatology of depression, pmaella and psychosis. She does report anxiety related with her hospitalization and loosening the control of her environment, especially no being able to smoke. The patient denies suicidal and homicidal ideation, she denies visual and auditory hallucinations. During this evaluation the patient does not present any ideas of reference, paranoia, loosening of associations, disorganized speech or behavior, agitation, aggression. She does not seem to have a prominent intrusive kind of thought pattern, I cannot elicit any obsessions or compulsive behavior at this moment. She does have some visibly cluster C traits, such as excessive preoccupation with details, rules, ordered, organization, cleaning, punctuality and ethical overconciousness. But the patient does not meet criteria for involuntary psychiatric admission at this moment. I wonder if the patient rather than OCD has OCPD. I also, given her history of ECT, moments of increased energy and reckless behavior, wonder if this patient has a bipolar disorder. I have offered to the patient the opportunity to be admitted voluntarily in psychiatry for management of her anxiety and to explore her psychiatric diagnosis, but she declines. I have given extensive psychoeducation, motivation and support to the patient, and I suggested that she discuss this issue with her outpatient psychiatrist. Continue Xanax 0.5 mg twice daily, continue Luvox 75 mg daily. Consult appreciated. Justification for Continued Inpatient Stay: No involuntary admission indicated
[2018-05-23] MEDS ORDERED: Potassium Chloride 25 MEQ Effervescent Tablet PO ONE (21:00)
[2018-05-23] MEDS: ALPRAZolam 0.25 MG Tablet PO SCH (21:39)
[2018-05-24 05:44] LABS: Baso % (Auto) 0.7 % (0.0-2.0); Eos # (Auto) 0.4 th/mm3 (0.0-0.4); Eos % (Auto) 5.8 % (0.0-4.0); Hematocrit 36.3 % (35.0-46.0); Hemoglobin 12.5 gm/dL (11.6-15.3); Lymph # (Auto) 0.7 th/mm3 (1.0-4.8); Lymph % (Auto) 10.6 % (9.0-44.0); Mean Corpuscular HGB Conc 34.6 % (32.0-36.0); Mean Corpuscular Hemoglobin 31.3 pg (27.0-34.0); Mean Corpuscular Volume 90.4 fL (80.0-100.0); Mean Platelet Volume 7.3 fL (7.0-11.0); Mono # (Auto) 0.9 th/mm3 (0.0-0.9); Mono % (Auto) 12.6 % (0.0-8.0); Neut # (Auto) 4.9 th/mm3 (1.8-7.7); Neut % (Auto) 70.3 % (16.0-70.0); Platelet Count 227 th/mm3 (150-450); Red Blood Count 4.01 mil/mm3 (4.00-5.30); Red Cell Distribution Width 13.3 % (11.6-17.2)
[2018-05-24 06:18] LABS: Anion Gap 6 meq/L (5-15); Blood Urea Nitrogen 9 mg/dL (7-18); Calcium 8.7 mg/dL (8.5-10.1); Carbon Dioxide 35.2 meq/L (21.0-32.0); Chloride 102 meq/L (98-107); Glomerular Filtration Rate Greater Than 89 mL/min (>89); Glucose,Random 102 mg/dL (74-106); Magnesium 1.9 mg/dL (1.5-2.5); Potassium 3.8 meq/L (3.5-5.1); Sodium 143 meq/L (136-145)
[2018-05-24] MEDS: Senna/Docusate Sodium 8.6/50 MG Tablet PO SCH ×2 (08:03→20:18)
[2018-05-24] MEDS: ALPRAZolam 0.25 MG Tablet PO SCH ×2 (08:04→20:18)
--- NOTE | 2018-05-24 09:15 | P.PN ---
Subjective Interval history: Pt seen and evaluated this morning. Ms. Jones continues to have difficulties understanding her need to stay in the hospital, and yesterday wanted to leave AMA. I had a conversation regarding getting her nephrostomy tube out and to please work with us in order to help her improve her health. She agreed to stay as long as we worked with her. This morning, she was asking the reason we are taking the nephrostomy tube out, again, we explained the reasons and the procedure. She seems forgetful at times, and she admits not remembering clearly. She denies any fevers, chills, shortness of breath, states her "lungs hurt", due to her chronic COPD condition but states breathing treatments are helping. She also complains of itching on the rash present on her back. She is eating, drinking, and urinating without problems. Physical Exam Vital signs: Vital Signs 05/23/18 11:35 05/23/18 12:00 05/23/18 15:05 Temperature 98.3 F Pulse Rate 65 66 Respiratory Rate 16 20 20 Blood Pressure 142/66 H Pulse Oximetry 93 L 92 L 05/23/18 15:49 05/23/18 15:59 05/23/18 20:02 Temperature 98.1 F Pulse Rate 76 69 89 Respiratory Rate 22 16 18 Blood Pressure 118/59 L Pulse Oximetry 94 L 05/23/18 20:04 05/23/18 21:35 05/23/18 23:47 Temperature 98.3 F Pulse Rate 67 90 Respiratory Rate 20 20 Blood Pressure 153/70 H Pulse Oximetry 96 96 98 05/24/18 00:45 05/24/18 03:54 05/24/18 08:00 Temperature 96.9 F L 98.3 F Pulse Rate 60 88 63 Respiratory Rate 20 19 17 Blood Pressure 117/56 L 125/56 L Pulse Oximetry 96 99 92 L 05/24/18 08:43 Temperature Pulse Rate 64 Respiratory Rate 15 Blood Pressure Pulse Oximetry 93 L Intake & Output 05/23/18 05/24/18 05/24/18 18:59 06:59 18:59 Intake Total 820 / 820 240 / 240 Output Total 1125 / 1125 400 / 400 Balance -305 / -305 -160 / -160 Intake: IV 100 / 100 Rocephin Inj 1,000 MG In NS Inj 100 / 100 100 ML @ 200 mls/hr IV.SIG Q24H [facility] Rx#:[id number] Oral 720 / 720 240 / 240 Output: Urine 400 / 400 Urine Amount (Stoma) 1124 Nephrostomy Tube Left 1124 Other: # Voids 2 Narrative: GENERAL: thin elderly woman, in no acute distress SKIN: Warm and dry. Nephrostomy tube in place on R back, capped and dressed. Extensive rash seen left middle back that has significantly increased in size from yesterday. Now extending to bilateral buttocks, bilateral upper legs and under her L breast. Erythematous slightly raised patches covering left upper and lateral back extending across multiple dermatomes. Nontender to the touch. Itching. HEAD: Normocephalic and atraumatic. EYES: No scleral icterus. No injection or drainage. ENT: No nasal drainage noted. Mucous membranes pink. Airway patent. CARDIOVASCULAR: Regular rate and rhythm without murmurs, gallops, or rubs. RESPIRATORY: breath sounds decreased equal bilaterally, baseline for patient. No accessory muscle use. On NC oxygen ABDOMEN/GI: Abdomen nondistended. Positive BS EXTREMITIES: No cyanosis or edema. NEUROLOGICAL: Awake and alert. Motor and sensory grossly within normal limits. PSYCH: Does appear anxious. Thought process is linear. Answers questions appropriately. Results - Labs CBC & Chem 7: 05/24/18 04:22 05/24/18 04:22 Laboratory Results - last 24 hr 05/23/18 05/24/18 05/24/18 18:44 04:22 04:22 WBC 7.0 RBC 4.01 Hgb 12.5 Hct 36.3 MCV 90.4 MCH 31.3 MCHC 34.6 RDW 13.3 Plt Count 227 MPV 7.3 Neut % (Auto) 70.3 H Lymph % (Auto) 10.6 [place] % (Auto) 12.6 H Eos % (Auto) 5.8 H Baso % (Auto) 0.7 Neut # (Auto) 4.9 Lymph # (Auto) 0.7 L [place] # (Auto) 0.9 Eos # (Auto) 0.4 Baso # (Auto) 0.0 WBC Differential . Differential Comment Auto diff final Sodium 143 Potassium 3.4 L 3.8 Chloride 102 Carbon Dioxide 35.2 H Anion Gap 6 BUN 9 Creatinine 0.44 L Estimated GFR Greater than 89 Random Glucose 102 Calcium 8.7 Magnesium 1.9 Assessment and Plan - Assessment (1) UTI (urinary tract infection) Code(s): N39.0 - Urinary tract infection, site not specified Status: Acute (2) Rash Code(s): R21 - Rash and other nonspecific skin eruption Status: Acute (3) Left nephrolithiasis Code(s): N20.0 - Calculus of kidney Status: Acute (4) Alteration in self-care ability Code(s): R53.81 - Other malaise Status: Acute (5) Anxiety Code(s): F41.9 - Anxiety disorder, unspecified Status: Chronic (6) High cholesterol Code(s): E78.00 - Pure hypercholesterolemia, unspecified Status: Chronic (7) Hypothyroidism Code(s): E03.9 - Hypothyroidism, unspecified Status: Chronic (8) COPD (chronic obstructive pulmonary disease) Code(s): J44.9 - Chronic obstructive pulmonary disease, unspecified Status: Chronic (9) Depression Code(s): F32.9 - Major depressive disorder, single episode, unspecified Status : Chronic (10) Patient incapable of making informed decisions Code(s): Z78.9 - Other specified health status Status: Acute (11) Nutrition, metabolism, and development symptoms Code(s): R63.8 - Other symptoms and signs concerning food and fluid intake Status: Acute (12) DVT prophylaxis Status: Acute - Plan Ms Jones is a 73 yr old female w/ PMH anxiety, OCD, depression, COPD, hypothyroidism a kidney stone, recently discharged from our service last Wednesday , returning to the hospital due to inability to take care of herself and follow medical instructions. She has been to the hospital 4 times since last week. She was found to have a stone on her L kidney and required a nephrostomy, and was found to have a UTI. Last Wednesday she insisted she wanted to leave, and refused going to a SNF, she was discharged home on antibiotics, pain control, and home health, which was set to go see her Wednesday morning. She returned to the ED Wednesday evening. Ms Jones continue to desire to leave AMA in the afternoon, we think this is related to her anxiety and her tobacco dependance. Psychiatry evaluated her yesterday and believe she does not meet psychiatry inpatient criteria. At this point, Ms Jones can exercise her free will and leave AMA if desired. I had an extensive conversation with her yesterday and this morning regarding her plan of care, including removal of Nephrostomy tube and placement of a new stent this morning. She agrees, at this point, to go to a SNF where she is allowed to smoke. From a medical perspective, pt will be cleared to be discharged tomorrow. We are closely working with CM to identify an appropriate facility for her. Plan: - UTI w/ positive cultures for Streptococcus viridans: continue IV ceftriaxone 1 gr q24hr - Pain not well controlled with Tramadol, replaced it w/ Chauncey 5/325mg PRN yesterday evening. Continues to have Tylenol as well. Pain improved. - Continue with care of nephrostomy tube. IR will remove the tube today and replace it with a stent. - Rash of unknow etiology at this time: contact dermatitis vs drug induced vs skin sensitivity. Will continue to monitor closely, Nephrostomy tube and tape will be removed today. Amoxicillin was the only new drug she received on Wednesday, which by now should have improved her rash, not worsen. Hydroxyzine scheduled 10 mg q6 hr for itching, which can also help with anxiety, as well as Hydrocortisone cream 1% TID. - Continue to work with CM for placement at SNF - Attending Attestation The exam, history, and the medical decision-making described in the above note were completed with the assistance of the resident physician. I reviewed and agree with the findings presented. I attest that I had a [id number] encounter with the patient on the same day, and personally performed and documented my assessment and findings in the medical record. Rash quite extensive -- if not improving by tomorrow will put on steroid dosepack. Appears to be allergic, hypersensitivity in nature. (8) COPD (chronic obstructive pulmonary disease) Qualifiers: COPD type: unspecified COPD Qualified Code(s): J44.9 - Chronic obstructive pulmonary disease, unspecified (9) Depression Qualifiers: Depression Type: major depressive disorder
[2018-05-24] MEDS ORDERED: fentaNYL Citrate Inj 250 MCG/5 ML Ampul ONE (11:17)
[2018-05-24] MEDS ORDERED: Levofloxacin 500 mg Premix Inj 500 MG/100 ML PIGGYBACK IV.SIG ONE (11:18)
--- NOTE | 2018-05-24 11:56 | P.RAD ---
Post Procedure Progress Note - Pre Procedure Diagnosis (1) Left nephrolithiasis - Post Procedure Diagnosis (1) Left nephrolithiasis - Procedure Information Supervising Radiologist: Felipe Ledesma MD Anesthesia: Conscious Sedation - Plan of Activity Patient to Unit: Nursing Unit Patient Condition: Good See PACS Report for procedural detail/treatment. Drainage Procedure Fluoroscopy left Ureteral Stent Fluid Description: Clear
[2018-05-24] MEDS ORDERED: Iohexol 350 MG/ML 50 ML Vial (for Rad Diag) IVCONTRAST ONE (12:08)
[2018-05-25 01:04] VITALS: O2SAT 93
[2018-05-25] MEDS: Levothyroxine 50 MCG Tablet PO SCH (05:52)
[2018-05-25] MEDS: ALPRAZolam 0.25 MG Tablet PO SCH (08:04)
[2018-05-25] MEDS: Senna/Docusate Sodium 8.6/50 MG Tablet PO SCH (08:05)
[2018-05-25 08:06] VITALS: RESP 18
--- NOTE | 2018-05-25 09:38 | IR ---
EXAM DATE: 05/24/2018 12:00 AM EDT AGE/SEX: 73 years / Female INDICATIONS: Patient in need of left nephroureteral stent removal for internalization of ureteral ca theter. CLINICAL DATA: This is the patient's subsequent encounter. Patient reports that signs and symptoms h ave been present for 2 days and indicates a pain score of 9/10. MEDICAL/SURGICAL HISTORY: Chronic obstructive pulmonary disease. Hypothyroidism. Renal calcul i. Depression, Smoker. None. COMPARISON: No prior exams available for comparison. FLUORO TIME (min): 3.38 IMAGE SERIES: 2 SEDATION TIME (min): 30 CONTRAST (cc): 10cc Omnipaque (iohexol) 350 MEDICATION(S): 2 mg midazolam (Versed) IV 100 mcg fentanyl (Sublimaze) IV DEVICE(S): 8 [facility] Polaris catheter 26 cm ureteral stent . . PROCEDURE : 1. Antegrade percutaneous pyelogram. 2. Percutaneous ureteral stent placement. 3. Conscious sedation with continuous EKG and oximetry monitoring. The risks, benefits and alternatives to the procedure were explained and verbal and written consent w as obtained. The site was prepped in sterile fashion. Full sterile technique was used, including ca p, mask, sterile gloves and gown and a large sterile sheet. Hand hygiene and 2% chlorhexidine and/or betadine/alcohol prep was utilized per protocol for cutaneous antisepsis. The skin and subcutaneous tissues were infiltrated with local anesthetic solution. The ureteral stent above was placed over with the proximal portion within the renal pelvis and the di stal extent in the urinary bladder. The patient tolerated the procedure well and there were no compl ications. Conscious sedation was performed with the prescribed dosages and duration as above in the presence of an independent trained radiology nurse to assist in the monitoring of the patient. EKG and oximetry remained stable throughout the procedure. The patient tolerated the procedure well and there were no complications. The patient was sent to post anesthesia recovery in stable condition. CONCLUSION: 1. Uncomplicated ureteral stent placement as above. Electronically signed by: Felipe Ledesma MD 05/25/2018 9:36 AM EDT
--- NOTE | 2018-05-25 10:49 | P.PNFP ---
Subjective Interval history: Patient was seen and evaluated this morning. She feels well this morning. She denies itching of rash on her back. Patient denies chest pain, heart palpitations, shortness of breath, nausea/vomiting, diarrhea and constipation. She is agreeable to go to rehab however questions the need for physical therapy. Importance of physical therapy in her recovery discussed. All questions were answered. <Jaclyn Alaniz - 05/25/18 10:49> Results - Labs Result diagrams: 05/24/18 04:22 05/24/18 04:22 <Argentina High - 05/25/18 16:15> - Imaging Impressions Ureteral Stent Placement 05/24/18 00:00 CONCLUSION: 1. Uncomplicated ureteral stent placement as above. <Ar[place]ina High - 05/25/18 16:15> Impressions Ureteral Stent Placement 05/24/18 00:00 CONCLUSION: 1. Uncomplicated ureteral stent placement as above. <Jaclyn Alaniz - 05/25/18 10:49> Physical Exam Vital signs: Vital Signs 05/24/18 17:26 05/24/18 20:00 05/24/18 21:32 Temperature 98.8 F Pulse Rate 62 63 Respiratory Rate 17 18 Blood Pressure 104/52 L 101/49 L Pulse Oximetry 95 94 L 05/25/18 00:00 05/25/18 02:15 05/25/18 05:49 Temperature 98.2 F 97.4 F L Pulse Rate 68 62 60 Respiratory Rate 19 18 20 Blood Pressure 122/56 L 106/54 L Pulse Oximetry 93 L 93 L 05/25/18 07:00 05/25/18 08:00 05/25/18 09:15 Temperature 98.3 F Pulse Rate 65 65 Respiratory Rate 18 18 Blood Pressure 115/58 L Pulse Oximetry 93 L 93 L 05/25/18 12:00 Temperature 99.6 F Pulse Rate 63 Respiratory Rate 18 Blood Pressure 103/53 L Pulse Oximetry 93 L Intake & Output 05/24/18 05/25/18 05/25/18 18:59 06:59 18:59 Intake Total 1000 / 1000 480 / 480 Output Total 300 / 300 Balance 1000 / 1000 180 / 180 Weight 60 kg Intake: IV 200 / 200 Levaquin 500 mg Premix Inj 500 100 / 100 mg In 100 ml @ 0 mls/hr IV.SIG .K-[facility] Rx#:[id number] Rocephin Inj 1,000 MG In NS Inj 100 / 100 100 ML @ 200 mls/hr IV.SIG Q24H [facility] Rx#:[id number] Oral 800 / 800 480 / 480 Output: Urine 300 / 300 Other: # Voids 3 2 Date of Last Bowel Movement 05/25/18 05/25/18 # Bowel Movements 1 <Ar[place]ina High - 05/25/18 16:15> Vital Signs 05/24/18 12:15 05/24/18 13:00 05/24/18 14:06 Temperature 98.0 F Pulse Rate 61 62 82 Respiratory Rate 18 18 17 Blood Pressure 94/48 L 90/48 L 90/53 L Pulse Oximetry 92 L 92 L 90 L 05/24/18 16:00 05/24/18 17:26 05/24/18 20:00 Temperature 98.1 F 98.8 F Pulse Rate 63 62 Respiratory Rate 17 17 Blood Pressure 98/49 L 104/52 L 101/49 L Pulse Oximetry 95 95 05/24/18 21:32 05/25/18 00:00 05/25/18 02:15 Temperature 98.2 F Pulse Rate 63 68 62 Respiratory Rate 18 19 18 Blood Pressure 122/56 L Pulse Oximetry 94 L 93 L 05/25/18 05:49 05/25/18 07:00 05/25/18 08:00 Temperature 97.4 F L 98.3 F Pulse Rate 60 65 65 Respiratory Rate 20 18 18 Blood Pressure 106/54 L 115/58 L Pulse Oximetry 93 L 93 L 05/25/18 09:15 Temperature Pulse Rate Respiratory Rate Blood Pressure Pulse Oximetry 93 L <Jaclyn Alaniz - 05/25/18 10:49> Narrative: GENERAL: Thin elderly woman, in no acute distress. SKIN: Warm and dry. Extensive rash seen over patient's left middle back, extending to bilateral buttocks and upper legs as well as under her L breast; rash: erythematous slightly raised patches. Nontender to the touch. HEAD: Normocephalic and atraumatic. EYES: No scleral icterus. No injection or drainage. ENT: No nasal drainage noted. Mucous membranes pink. Airway patent. CARDIOVASCULAR: Regular rate and rhythm without murmurs, gallops, or rubs. RESPIRATORY: Breath sounds decreased equal bilaterally, baseline for patient. No accessory muscle use. On 3L oxygen via NC. ABDOMEN/GI: Abdomen nondistended. Positive BS. EXTREMITIES: No cyanosis or edema. NEUROLOGICAL: Awake and alert. Motor and sensory grossly within normal limits. PSYCH: Insight poor. <Jaclyn Alaniz - 05/25/18 10:49> Assessment and Plan - Assessment (1) Left nephrolithiasis Code(s): N20.0 - Calculus of kidney Status: Acute (2) UTI (urinary tract infection) Code(s): N39.0 - Urinary tract infection, site not specified Status: Resolved (3) Rash Code(s): R21 - Rash and other nonspecific skin eruption Status: Acute (4) Alteration in self-care ability Code(s): R53.81 - Other malaise Status: Acute (5) Anxiety Code(s): F41.9 - Anxiety disorder, unspecified Status: Chronic (6) Depression Code(s): F32.9 - Major depressive disorder, single episode, unspecified Status : Chronic (7) Hypothyroidism Code(s): E03.9 - Hypothyroidism, unspecified Status: Chronic (8) COPD (chronic obstructive pulmonary disease) Code(s): J44.9 - Chronic obstructive pulmonary disease, unspecified Status: Chronic (9) High cholesterol Code(s): E78.00 - Pure hypercholesterolemia, unspecified Status: Chronic <Ar[place] High - 05/25/18 16:15> (1) Left nephrolithiasis Code(s): N20.0 - Calculus of kidney Status: Acute (2) UTI (urinary tract infection) Code(s): N39.0 - Urinary tract infection, site not specified Status: Resolved (3) Rash Code(s): R21 - Rash and other nonspecific skin eruption Status: Acute (4) Alteration in self-care ability Code(s): R53.81 - Other malaise Status: Acute (5) Anxiety Code(s): F41.9 - Anxiety disorder, unspecified Status: Chronic (6) Depression Code(s): F32.9 - Major depressive disorder, single episode, unspecified Status : Chronic (7) Hypothyroidism Code(s): E03.9 - Hypothyroidism, unspecified Status: Chronic (8) COPD (chronic obstructive pulmonary disease) Code(s): J44.9 - Chronic obstructive pulmonary disease, unspecified Status: Chronic (9) High cholesterol Code(s): E78.00 - Pure hypercholesterolemia, unspecified Status: Chronic <Jaclyn Alaniz - 05/25/18 12:10> - Assessment and Plan Patient is a 73 year female hospitalized for nephrolithiasis, s/p stent and nephrostomy tube placement, complicated by UTI. She was initially discharged on 05/20 but returned 05/21 due to failure to care for herself at home. She has poor insight into her condition, threatening to leave AMA on multiple occasions. Patient to stay for three-nights to meet criteria for SNF placement. Labs: * CBC wnl. * Hypokalemia resolved. * Cr wnl. Procedure (05/24): 1. Antegrade percutaneous pyelogram. 2. Percutaneous ureteral stent placement. 3. Conscious sedation with continuous EKG and oximetry monitoring. Consults: * Psychiatry: Continue Xanax 0.5 mg twice daily, continue Luvox 75 mg daily. Medication: * Pain control with Tylenol and Fenelton. * UTI management with Ceftriaxone. * COPD management with Albuterol inhaler and nebulizer treatments. * Xanax and Luvex for anxiety and depression. * Hydrocortisone and hydroxyzine for treatment of rash on patient's backside. FEN Fluid: * Tolerating PO. Electrolytes: * Monitor and replete as necessary. Nutrition: * Regular diet. DVT prophylaxis: * SCDs * Encourage ambulation. Discharge: * Today pending SNF placement. * Patient to follow-up with PCP and urology. <Jaclyn Alaniz - 05/25/18 12:26> <Labell,Jaclyn - Last Filed: 05/25/18 12:10> (6) Depression Qualifiers: Depression Type: major depressive disorder (8) COPD (chronic obstructive pulmonary disease) Qualifiers: COPD type: unspecified COPD Qualified Code(s): J44.9 - Chronic obstructive pulmonary disease, unspecified <Ar[place] High R - Last Filed: 05/25/18 16:15> (6) Depression Qualifiers: Depression Type: major depressive disorder (8) COPD (chronic obstructive pulmonary disease) Qualifiers: COPD type: unspecified COPD Qualified Code(s): J44.9 - Chronic obstructive pulmonary disease, unspecified <Luis Carlos Alanizin - Last Filed: 05/25/18 12:10> (6) Depression Qualifiers: Depression Type: major depressive disorder (8) COPD (chronic obstructive pulmonary disease) Qualifiers: COPD type: unspecified COPD Qualified Code(s): J44.9 - Chronic obstructive pulmonary disease, unspecified <[place] High R - Last Filed: 05/25/18 16:15> (6) Depression Qualifiers: Depression Type: major depressive disorder (8) COPD (chronic obstructive pulmonary disease) Qualifiers: COPD type: unspecified COPD Qualified Code(s): J44.9 - Chronic obstructive pulmonary disease, unspecified
[2018-05-25 12:45] VITALS: BP 103/53; PULSE 63; TEMP 99.6
== END 2018-05-25 14:51 ==
LOC: NEDAMB 17:43 → NEDA 19:38 → INTOOBSV 19:38 → N07 22:27
PROVIDERS: ADMIT Family Medicine; ATTEND Family Medicine